=== PATIENT | male | born 1965 ===

== ENCOUNTER → 2021-04-27 15:09 | Outpatient (BNVA) | payer OTHER, SELFPAY | PROVIDERS: PCP Family Medicine; Visit Provider Internal Medicine | DX: J44.9 Chronic obstructive pulmonary disease, unspecified (principal); Z87.891 Personal history of nicotine dependence | CPT/HCPCS: 99212 ==

== ENCOUNTER → 2021-11-08 14:57 | Outpatient (BNVA) | payer OTHER, SELFPAY | PROVIDERS: PCP Family Medicine; Visit Provider Internal Medicine | DX: J44.9 Chronic obstructive pulmonary disease, unspecified (principal); Z87.891 Personal history of nicotine dependence | CPT/HCPCS: 99212 ==

== ENCOUNTER 2021-12-02 12:35 | Emergency (ER) | payer OTHER, SELFPAY ==
[2021-12-02 13:21] VITALS: BP 160/92; PULSE 85; RESP 17; TEMP 37.4; O2SAT 99; BMI 21.6
--- NOTE | 2021-12-02 17:28 | ED.WOUNDLAC ---
HPI - Wound/Laceration General Chief Complaint: Wound/Laceration Stated Complaint: infected thumbnail Time Seen by Provider: 12/02/21 16:11 Source: patient Mode of arrival: ambulatory History of Present Illness HPI narrative: 56-year-old male with past medical history of COPD presenting to the ED complaining of swollen, painful, erythematous right thumb x a few days. Admits poked area with something metal and then toothpick with pus drainage expressed. Denies fever, chills, injury Onset (ago): day(s) Related Data Home Medications Medication Instructions Recorded Confirmed levothyroxine 150 mcg tablet 150 mcg PO DAILY 04/27/21 lisinopril 10 mg tablet 10 mg PO DAILY 04/27/21 Previous Rx's Medication Instructions Recorded albuterol sulfate 90 mcg/actuation 2 puff INHALATION Q4-6H PRN 30 04/13/21 aerosol inhaler (ProAir HFA) Days #8.5 g fluticasone 500 mcg-salmeterol 50 1 inh INHALATION BID #60 ea 04/19/21 mcg/dose blistr powdr for inhalation (Advair Diskus) budesonide-formoterol HFA 160 2 puff INHALATION BID 30 Days 04/27/21 mcg-4.5 mcg/actuation aerosol #10.2 g inhaler (Symbicort) fluticasone propionate 230 2 puff INHALATION BID 30 Days #12 g 11/08/21 mcg-salmeterol 21 mcg/actuation HFA inhaler (Advair HFA) cephalexin 500 mg capsule 500 mg PO QID 7 Days #28 cap 12/02/21 doxycycline hyclate 100 mg tablet 100 mg PO BID 7 Days #14 tab 12/02/21 Allergies Allergy/AdvReac Type Severity Reaction Status Date / Time No Known Allergies Allergy Unverified 11/08/21 15:24 Review of Systems Review of Systems: Constitutional: No Fever, No Chills ENT/Mouth: No Ear Pain, No Nasal Congestion, No sore throat, No Swallowing Difficulty Cardiovascular: No Chest Pain, No SOB Respiratory: No Cough, No Sputum Gastrointestinal: No Nausea, No Vomiting, No Abdominal pain Genitourinary:, No Dysuria, No Urinary Frequency, No Hematuria,No Flank Pain Musculoskeletal: + joint pain, No Myalgias, + Joint Swelling Skin: No Skin Lesions, No rash Neuro: No Weakness, No Numbness, No Paresthesias Yes all other systems are reviewed and are negative [facility] Past Medical History Attestation statement: The following information was validated with the patient. Medical History COPD (chronic obstructive pulmonary disease) Ex-smoker Social History Social History Patient Tobacco Use Status: Former Tobacco user Tobacco use type: Cigarette Years Smoked: 40 years Advance Directives: No Advance Directives Information Provided: No Physical Exam Vital Signs: Vital Signs: Last Vital Signs Temp 99.4 F 12/02/21 13:21 Pulse 85 12/02/21 13:21 Resp 17 12/02/21 13:21 BP 160/92 H 12/02/21 13:21 Pulse Ox 99 12/02/21 13:21 BMI result Body Mass Index 21.6 Const: General: cooperative, healthy appearing, no acute distress, well developed, alert and awake Orientation/consciousness: patient oriented x3 Limitations: no limitations HENMT: Head: Yes normal to inspection and Yes atraumatic Ears: hearing grossly normal bilaterally General nose exam: Normal external nose present Face and sinus: Yes normal facial exam Eyes: General: appearance normal, both eyes and all related structures EOM: EOMs intact bilaterally Neck: Neck: Yes normal visual inspection and Yes no meningeal signs Resp: Effort & Inspection: normal respiratory effort and no respiratory distress Cardio: Rate: regular rate Peripheral pulses: radial pulses present Skin: Rashes: no rashes Neuro: General: patient oriented x3, tone normal and no meningeal signs Gait exam (Neuro): Normal gait present Extrem: Other: +felon to right thumb with fluctuance to pulp. + mild erythema to the matrix. diffuse ttp. FROM intact. NV intact Right upper extremity: normal capillary refill Course Course Course Narrative: I&D performed with Dr. Gutierrez at bedside > minimal amount of pus expressed. C/w cellulitis. Had lengthy discussion with patient about 0 care at home and close follow-up needed. He verbalized understanding and feels safe for discharge home at this time MDM - Wound/Laceration MDM Narrative Medical decision making narrative: 56-year-old male with past medical history of COPD presenting to the ED complaining of swollen, painful, erythematous right thumb x a few days. On exam vital signs stable, NAD/well-appearing, physical exam as above concerning for valentín with abscess vs cellulitis. Case discussed with Dr. Gutierrez who also evaluated patient Plan: I&D Differential Diagnosis Differential diagnosis: Likely abscess Medical Records Attestation: I reviewed the patient's medical records. Lab Data Attestation: I reviewed the patient's lab results. Procedures Abscess I/D Site: hand Side (if applicable): right Local Anesthetic: lidocaine 1% (digital block) Amount of anesthesia used (mL): 5 Technique: incised with blade Discharge Plan Discharge Clinical Impression: Felon of finger of right hand Patient Disposition: Home, Self-Care Instructions: Cellulitis (DC) Additional Instructions: You have an infection of your finger pad, it was open today with minimal drainage, you need to practice warm soaks at home to help dry out the infection a couple times a day Doxycycline and Keflex are antibiotics please take as prescribed. Perform daily wound checks. You need to follow-up with a hand specialist Please return for re-evaluation/wound check in 2-3 days If area begins to look more infected, more swollen, red, there was pus drainage or you have fever/red streaking up her finger return to the ED immediately Prescriptions: New cephalexin 500 mg capsule 500 mg PO QID 7 Days Qty: 28 0RF doxycycline hyclate 100 mg tablet 100 mg PO BID 7 Days Qty: 14 0RF No Action albuterol sulfate [ProAir HFA] 90 mcg/actuation HFA aerosol inhaler 2 puff inhalation Q4-6H PRN (Reason: shortness of breath or wheezing) 30 Days Qty: 8.5 3RF fluticasone propion-salmeterol [Advair Diskus] 500-50 mcg/dose blister with device 1 inh inhalation BID Qty: 60 3RF levothyroxine 150 mcg tablet 150 mcg PO DAILY 0RF lisinopril 10 mg tablet 10 mg PO DAILY 0RF budesonide-formoterol [Symbicort] 160-4.5 mcg/actuation HFA aerosol inhaler 2 puff inhalation BID 30 Days Qty: 10.2 5RF Advair HFA 230-21 mcg/actuation HFA aerosol inhaler 2 puff inhalation BID 30 Days Qty: 12 3RF Rx Instructions: administer with spacer Referrals: Mara Crum PA [Emergency Midlevel Provider] - 2 days (return to ED in 2 days for re-evaluation ) Liane Jordan MD [Physician] - 2 days Interventions: ED Discharge Assessment Last Done: 12/02/21 18:22
== END 2021-12-02 18:23 | disposition home or self-care (01) ==
PROVIDERS: Emergency Provider Emergency Medicine Emergency Medical Services; PCP Family Medicine
DX: L03.011 Cellulitis of right finger (principal); M79.644 Pain in right finger(s)
CPT/HCPCS: 26010; 99283; 99284

== ENCOUNTER 2021-12-08 11:35 | Outpatient (REF) | payer OTHER, SELFPAY ==
--- NOTE | ~2021-12-08 | XR_ITS ---
EXAMINATION: XR HAND, RIGHT CLINICAL INFORMATION: Pain in right hand. COMPARISON: Right hand 11/18/2017. TECHNIQUE: PA, lateral, and oblique views of the right hand. FINDINGS: There is a new lytic lesion along the phalangeal tuft of 1st digit with mild soft tissue swelling suspicious for an aggressive intraosseous lesion. There is moderate soft tissue swelling. Rest of the distal phalanx, PIP joint and the right hand is unremarkable. XR/XR hand RT min 3V IMPRESSION: 7 mm aggressive lytic lesion distal phalangeal tuft right hand 1st digit. Recommend MRI with and without contrast.
== END 2021-12-08 11:36 | disposition home or self-care (01) ==
LOC: HO.HOSX 11:35
PROVIDERS: Visit Provider Physician Assistant
DX: L03.011 Cellulitis of right finger (principal); M86.9 Osteomyelitis, unspecified
CPT/HCPCS: 73130; 99202

== ENCOUNTER 2021-12-11 07:50 | Day surgery (SDC) | payer OTHER, SELFPAY ==
--- NOTE | 2021-12-08 12:18 | HO.ANESPROP2 ---
Documented by User: Octavia Ramey NP 12/08/21 12:19 HPI - Anesthesia Eval Consult details Narrative: 56yo M for Right I&D thumb,poss amp PMFSH Active Problems Active Problems: All Active Problems (Updated 12/03/21 @ 00:02 by Ruy Aly) Ex-smoker (Acute) COPD (chronic obstructive pulmonary disease) (Acute) Past Medical History Medical History COPD (chronic obstructive pulmonary disease) Ex-smoker Social History Social History (Updated 12/08/21 @ 11:38 by JAIRO Broussard) Patient Tobacco Use Status: Former Tobacco user Tobacco use type: Cigarette Years Smoked: 40 years Current occupational status: disabled 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 Allergies Allergy/AdvReac Type Severity Reaction Status Date / Time No Known Allergies Allergy Verified 12/11/21 07:59 Home Medications Medication Instructions Recorded Confirmed Last Taken Type levothyroxine 150 mcg tablet 150 mcg PO DAILY 04/27/21 12/11/21 07:00 History lisinopril 10 mg tablet 10 mg PO DAILY 04/27/21 Unknown History Exam Exam Date and Time: December 08, 20211217 Assessment and Plan Assessment Anesthesia Assessment: Chart Reviewed Documented by User: Cortez Groves MD 12/11/21 16:52 [facility] Past Medical History Medical History COPD (chronic obstructive pulmonary disease) Ex-smoker Family History Family history of problems with anesthesia: No Surgical History History of Problems with Anesthesia: No Social History Social History (Updated 12/08/21 @ 11:38 by JAIRO Broussard) Patient Tobacco Use Status: Former Tobacco user Tobacco use type: Cigarette Years Smoked: 40 years Current occupational status: disabled 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 Allergies Allergy/AdvReac Type Severity Reaction Status Date / Time No Known Allergies Allergy Verified 12/11/21 07:59 Home Medications Medication Instructions Recorded Confirmed Last Taken Type levothyroxine 150 mcg tablet 150 mcg PO DAILY 04/27/21 12/11/21 07:00 History lisinopril 10 mg tablet 10 mg PO DAILY 04/27/21 Unknown History Exam Airway Mallampati Class: II TM Dist: >3cm Neck ROM: Full Loose/Missing/Broken Teeth: Yes (Poor dentation ) Heart: rrr Lungs: bl breath sounds Assessment and Plan Assessment Anesthesia Assessment: Anesthesia Plan Discussed Final Anesthetic Review Family History of Problems with Anesthesia: No History of Problems with Anesthesia: No NPO: Yes ASA Class: II Final Preanesthetic Review: No Changes in Pt Med Stat, Meds/Allgs Chart Reviewed, Consent Obtained/Reviewed and Anes Risks/Benef Reviewed Patient Risk: Intermediate Procedure Risk: Intermediate Anesthetic Plan Anesthetic Plan: GA Disposition: Standard PACU
[2021-12-11] VITALS (8 sets, daily range): BP systolic 117–160; BP diastolic 75–99; PULSE 71–79; RESP 16; TEMP 36.1–37.2; O2SAT 97–100; BMI 21.7
--- NOTE | ~2021-12-11 | FL_ITS ---
EXAMINATION: XR FLUOROSCOPY WITH IMAGES CLINICAL INFORMATION: COMPARISON: Aggressive lesion distal phalanx 1st digit. TECHNIQUE: Fluoroscopy performed by Dr. Liane Jordan Fluoroscopy time: 6.77). DAP: 2644 mGycm2 Images: 3 FINDINGS: There is incision and drainage or biopsy gun of the expansile lytic lesion along the distal phalanx 1st digit. FL/FL guidance in OR IMPRESSION: of the distal phalanx 1st digit.
[2021-12-11] MEDS: Lactated Ringers 1,000 ML 100 ML IVCONT (09:01)
--- NOTE | 2021-12-11 09:42 | MHC.SHP ---
Pre-Procedural Eval Section A Date of Service: 12/11/21 The patient is an INPATIENT: No Changes since office visit: No Cold of Flu in the past 2 weeks, No New Medical Problems, No Changes in Medication and No Patient answered all questions The History & Physical has been completed within 30 days and I have reviewed it.: Yes Section B Chief Complaint: Osteomyelitis of right thumb distal phalanx Allergies: Allergies Allergy/AdvReac Type Severity Reaction Status Date / Time No Known Allergies Allergy Verified 12/11/21 07:59 Plan I have reviewed the history and physical and performed a pertinent physical examination on my patient. No changes have occurred unless specified.
--- NOTE | 2021-12-11 09:43 | W.PM.OPN ---
Operative Note Operative Note Date of Service: 12/11/21 Narrative: Operative Note Narrative: Preop diagnosis: right thumb distal phalanx osteomyelitis Postop diagnosis: Same Procedure: right thumb and distal phalanx I&D Surgeon: Liane Jordan MD Anesthesia: General Findings: a small amount of serosanguineous drainage. No gross purulence. The bone in the area of the defect in the distal phalanx was not particularly soft. Implants: none Tourniquet time: Fifteen minutes EBL: 5.0 ml Specimen: right thumb wound and bone specimen sent for cultures Drains: None Complications: None Disposition: Brought to the recovery room in stable condition Plan: [ ] Follow-up in 3-4 days for wound check, and to check cultures Anticipate close follow-up. Infectious disease referral made. assure patient taking antibiotics, and adequate appointment made with Infectious Disease, as this patient will likely need 6 weeks of antibiotics. Indications: The patient is a [age] year old man with right thumb distal phalanx osteomyelitis and an approximately 3 month history of a chronic infection. . The risks and benefits of operative treatment, including but not limited to risk of damage to blood vessels, nerves, tendons, infection, recurrence, persistent pain or numbness, incomplete resolution of preoperative symptoms, or need for further surgery were discussed with the patient and they wished to proceed with surgery. Procedure: Once consent was obtained patient was brought back to the operating suite and placed in the operating table in a supine position. . Perioperative antibiotics Were held until cultures were taken,and anesthesia was administered by the anesthesia team. A tourniquet was applied to the proximal aspect of the right upper extremity and the limb was prepped and draped in a standard surgical fashion. The limb was elevated exsanguinated with Esmarch bandage from the wrist proximally and the tourniquet inflated to 250 mm of mercury for a total tourniquet time of 15 minutes. A digital block Of the right thumb was performed using some 0.5% plain Marcaine. I made a 1.5 cm incision along the radial border of the right thumb distal phalanx in line with the healing ED incision site. Tenotomy scissors were used to dissect down to volar soft tissues at the distal phalanx level. A small amount of serosanguineous drainage was appreciated but no gross purulence. I then made a 1 cm transverse incision at the tip of the distal phalanx, where the patient had been draining this infection on his own over the last 2-3 months. Tenotomy scissors were then used to dissect down to the volar soft tissues and the volar aspect of the distal phalanx. Again there was only a small amount of serosanguineous drainage and no gross purulence. I placed a small curette into the bony defect at the volar tip of the distal phalanx. This was confirmed on orthogonal fluoroscopic images. Cultures were taken both of the soft tissues in the volar aspect of the thumb, and also from the bone of the distal phalanx in the area of the defect. Of note, the bone in this area was not particularly soft. At this point the tourniquet was deflated and hemostasis obtained with a brief period of local pressure. The bone and the wounds were copiously irrigated with normal saline. The skin edges were loosely reapproximated with 5-0 nylon suture. a sterile dressing was applied. 3 g of IV Unasyn were given after cultures were taken. The patient appears to have tolerated the procedure well and with no complications. All digits were well vascularized conclusion of the case.
[2021-12-11] MEDS: Ampicillin Sodium/Sulbactam Na 3 GM in 0.9 % Sodium Chloride 100 ML IV (10:55)
== END 2021-12-11 12:45 | disposition home or self-care (01) ==
PROVIDERS: PCP Family Medicine; Visit Provider Orthopaedic Surgery
PROC: (CPT 10061; principal; 2021-12-11 09:10)
DX: M86.141 Other acute osteomyelitis, right hand (principal); L03.011 Cellulitis of right finger; B96.89 Other specified bacterial agents as the cause of diseases classified elsewhere; J44.9 Chronic obstructive pulmonary disease, unspecified; Z87.891 Personal history of nicotine dependence; M86.641 Other chronic osteomyelitis, right hand
CPT/HCPCS: 10061; 87071; 87077; 87205; J0295; J1100; J2250; J2405; J3010

== ENCOUNTER → 2021-12-15 11:21 | Outpatient (BNVA) | payer OTHER, SELFPAY | PROVIDERS: Visit Provider Physician Assistant | DX: M86.9 Osteomyelitis, unspecified (principal) | CPT/HCPCS: 99212 ==

== ENCOUNTER → 2021-12-26 12:31 | Outpatient (BNVA) | payer OTHER, SELFPAY | PROVIDERS: PCP Family Medicine; Visit Provider Orthopaedic Surgery | DX: Z47.89 Encounter for other orthopedic aftercare (principal); S60.351A Superficial foreign body of right thumb, initial encounter | CPT/HCPCS: 99212 ==

== ENCOUNTER 2021-12-28 05:58 | Day surgery (SDC) | payer OTHER, SELFPAY ==
--- NOTE | 2021-12-27 10:44 | P.CONAN_ITS ---
Documented by User: Octavia Ramey NP 12/27/21 10:45 HPI - Anesthesia Eval Consult details Narrative: 56yo M for Right I&D thumb, removal of nail plate and foreign body s/p R thumb I&D 11/2021 with [facility] 4 PMFSH Active Problems Active Problems: All Active Problems (Updated 12/26/21 @ 13:49 by Liane Jordan MD) Foreign body of right thumb (Acute) Osteomyelitis of finger of right hand (Acute) Osteomyelitis (Acute) Ex-smoker (Acute) COPD (chronic obstructive pulmonary disease) (Acute) Past Medical History Medical History (Updated 12/27/21 @ 11:53 by Fouzia Bañuelos RN) COPD (chronic obstructive pulmonary disease) Ex-smoker HTN (hypertension) Hypothyroid Family History Family history of problems with anesthesia: No Surgical History History of Problems with Anesthesia: No Social History Social History Patient Tobacco Use Status: Former Tobacco user Tobacco use type: Cigarette Years Smoked: 40 years Current occupational status: disabled 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 Allergies Allergy/AdvReac Type Severity Reaction Status Date / Time No Known Allergies Allergy Verified 12/26/21 12:44 Home Medications Medication Instructions Recorded Confirmed Last Taken Type levothyroxine 150 mcg tablet 150 mcg PO DAILY 04/27/21 12/28/21 05:45 History lisinopril 10 mg tablet 10 mg PO DAILY 04/27/21 Unknown History Exam Exam Date and Time: December 27, 2021 1044 Assessment and Plan Assessment Anesthesia Assessment: Chart Reviewed Final Anesthetic Review Family History of Problems with Anesthesia: No History of Problems with Anesthesia: No Documented by User: Cortez Groves MD 12/28/21 16:31 HPI - Anesthesia Eval Consult details Narrative: 56yo M for Right I&D thumb, removal of nail plate and foreign body HTN , COPD symptoms waxes and wanes , Hypothroid s/p R thumb I&D 11/2021 with [facility]-LMA 4 [facility] Past Medical History Medical History (Updated 12/27/21 @ 11:53 by Fouzia Bañuelos RN) COPD (chronic obstructive pulmonary disease) Ex-smoker HTN (hypertension) Hypothyroid Social History Social History Patient Tobacco Use Status: Former Tobacco user Tobacco use type: Cigarette Years Smoked: 40 years Current occupational status: disabled 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 Allergies Allergy/AdvReac Type Severity Reaction Status Date / Time No Known Allergies Allergy Verified 12/26/21 12:44 Home Medications Medication Instructions Recorded Confirmed Last Taken Type levothyroxine 150 mcg tablet 150 mcg PO DAILY 04/27/21 12/28/21 05:45 History lisinopril 10 mg tablet 10 mg PO DAILY 04/27/21 Unknown History Exam Airway Mallampati Class: II TM Dist: >3cm Neck ROM: Full Loose/Missing/Broken Teeth: Yes Heart: rrr Lungs: bl breath sounds Assessment and Plan Assessment Anesthesia Assessment: Anesthesia Plan Discussed Final Anesthetic Review NPO: Yes ASA Class: II Patient Risk: Intermediate Procedure Risk: Intermediate Anesthetic Plan Anesthetic Plan: GA Disposition: Standard PACU
[2021-12-28] VITALS (8 sets, daily range): BP systolic 113–144; BP diastolic 67–101; PULSE 72–89; RESP 16–18; TEMP 36.3–36.6; O2SAT 97–100; BMI 20.9
[2021-12-28] MEDS: Lactated Ringers 1,000 ML 100 ML IVCONT (06:45)
--- NOTE | 2021-12-28 07:40 | P.OP_ITS ---
Operative Note Operative Note Date of Service: 12/28/21 Narrative: Operative Note Narrative: Preop diagnosis: 1. Right thumb foreign body 2. Right thumb distal phalanx osteomyelitis Postop diagnosis: Same Procedure: 1. Right thumb distal phalanx I&D 2. Right thumb removal of nail plate 3. Right thumb removal of foreign body Surgeon: Liane Jordan MD Anesthesia: General [plus regional block] Findings: A defect in the distal aspect of the right thumb nail sterile matrix extending down into an area of bone loss secondary to osteomyelitis. Some debris and a small sac was removed from this area. Cultures were taken, and the small sac and some of the debris sent for pathology. Implants: none Tourniquet time: Twenty-five minutes EBL: 5.0 ml Specimen: cultures from the right thumb distal phalanx, as well as soft tissue including a sac like tissue and some debris which may include a foreign body or sent to pathology Drains: None Complications: None Disposition: Brought to the recovery room in stable condition Plan: [ ] Follow-up in 4-5 days for wound check, and to check pathology and cultures anticipate suture removal in 2 weeks. Indications: The patient is a 48 year old man with right thumb distal phalanx osteomyelitis, who feels the presence of a splinter in the distal aspect of the nail bed. . The risks and benefits of operative treatment, including but not limited to risk of damage to blood vessels, nerves, tendons, infection, recurrence, persistent pain or numbness, incomplete resolution of preoperative symptoms, or need for further surgery were discussed with the patient and they wished to proceed with surgery. Procedure: Once consent was obtained patient was brought back to the operating suite and placed in the operating table in a supine position. . Perioperative antibiotics and anesthesia was administered by the anesthesia team. A tourniquet was applied to the proximal aspect of the Right upper extremity and the limb was prepped and draped in a standard surgical fashion. The limb was elevated exsanguinated with Esmarch bandage and the tourniquet inflated to 250 mm of mercury for a total tourniquet time of Twenty-five minutes. I removed a layer of old dry skin from the distal aspect of the right thumb. It showed the 2 incisions from his I&D to be well healed. The nail plate was removed using a [place] elevator. the nail plate was noted to be significantly thickened. There was essentially a hole through the distal central aspect of the sterile matrix where the patient thought that there might be a splinter. Some of this tissue was adherent to the underside of the nail in this area. some debris that may have been foreign body or splinter was removed and placed in the culture tube. A rongeur was used to remove a small sac like tissue and some remaining debris from the wound and distal phalanx and this was sent for pathology. There is a fairly significant cavernous defect in the dorsal aspect of the distal phalanx. The defect in sterile matrix extended into this bony cavern. A small curette and a rongeur was used to remove material from the distal phalanx defect. This point the wound was copiously irrigated with normal saline. A single 5 0 Prolene suture was used to reapproximate the edges of the sterile matrix defect. At this point the tourniquet was deflated and hemostasis obtained with a brief period of local pressure . A digital block was performed using some 0.5% plain Marcaine for postop pain control and a sterile dressing was applied. The patient appears to have tolerated the procedure well and with no complications. All digits were well vascularized conclusion of the case.
--- NOTE | 2021-12-28 07:40 | MHC.SHP ---
Pre-Procedural Eval Section A Date of Service: 12/28/21 The patient is an INPATIENT: No Changes since office visit: No Cold of Flu in the past 2 weeks, No New Medical Problems, No Changes in Medication and No Patient answered all questions The History & Physical has been completed within 30 days and I have reviewed it.: Yes Section B Chief Complaint: osteomyelitis Allergies: Allergies Allergy/AdvReac Type Severity Reaction Status Date / Time No Known Allergies Allergy Verified 12/26/21 12:44 Plan I have reviewed the history and physical and performed a pertinent physical examination on my patient. No changes have occurred unless specified.
== END 2021-12-28 10:53 | disposition home or self-care (01) ==
PROVIDERS: PCP Family Medicine; Visit Provider Orthopaedic Surgery
PROC: (CPT 10121; principal; 2021-12-28 07:30)
DX: M86.9 Osteomyelitis, unspecified (principal); S60.351A Superficial foreign body of right thumb, initial encounter; M79.5 Residual foreign body in soft tissue; W45.8XXA Other foreign body or object entering through skin, initial encounter; Y93.9 Activity, unspecified; Y92.9 Unspecified place or not applicable; Y99.8 Other external cause status; R20.0 Anesthesia of skin; M25.641 Stiffness of right hand, not elsewhere classified; J44.9 Chronic obstructive pulmonary disease, unspecified; Z87.891 Personal history of nicotine dependence; I10 Essential (primary) hypertension; Z79.51 Long term (current) use of inhaled steroids; Z79.899 Other long term (current) drug therapy
CPT/HCPCS: 10121; 87071; 87205; 88304; 88305; 88311; J0171; J1100; J2250; J2370; J2405; J3010

== ENCOUNTER → 2022-01-02 12:20 | Outpatient (BNVA) | payer OTHER, SELFPAY | PROVIDERS: PCP Family Medicine; Visit Provider Physician Assistant | DX: M86.9 Osteomyelitis, unspecified (principal); S60.351D Superficial foreign body of right thumb, subsequent encounter; Z98.890 Other specified postprocedural states | CPT/HCPCS: 99212 ==

== ENCOUNTER → 2022-01-09 15:01 | Outpatient (BNVA) | payer OTHER, SELFPAY | PROVIDERS: PCP Family Medicine; Visit Provider Orthopaedic Surgery | DX: S60.351D Superficial foreign body of right thumb, subsequent encounter (principal); M86.9 Osteomyelitis, unspecified | CPT/HCPCS: 99212 ==

== ENCOUNTER → 2022-01-12 11:02 | Outpatient (BNVA) | payer OTHER, SELFPAY | PROVIDERS: PCP Family Medicine; Visit Provider Internal Medicine | DX: M86.9 Osteomyelitis, unspecified (principal) | CPT/HCPCS: 99212 ==

== ENCOUNTER → 2022-01-16 10:17 | Outpatient (BNVA) | payer OTHER, SELFPAY | PROVIDERS: PCP Family Medicine; Visit Provider Orthopaedic Surgery | DX: S60.351D Superficial foreign body of right thumb, subsequent encounter (principal); M86.9 Osteomyelitis, unspecified | CPT/HCPCS: 99212 ==

== ENCOUNTER 2022-02-20 11:08 | Outpatient (REF) | payer OTHER, SELFPAY ==
--- NOTE | ~2022-02-20 | XR_ITS ---
EXAMINATION: XR HAND, RIGHT CLINICAL INFORMATION: Pain. COMPARISON: Radiograph of the right hand dated from 12/08/2021. TECHNIQUE: PA, lateral, and oblique views of the right hand. FINDINGS: Redemonstration of a lytic lesion in the distal phalangeal tuft of the first digit. No other discrete bone lesions. No acute fractures or malalignment. 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 XR/XR hand RT min 3V IMPRESSION: Again noted nonspecific lytic lesion in the distal phalanx of the first digit for which further characterization with a targeted MR with and without intravenous contrast is recommended.
== END 2022-02-20 11:09 | disposition home or self-care (01) ==
LOC: HO.HOSX 11:08
PROVIDERS: Visit Provider Orthopaedic Surgery
DX: M86.9 Osteomyelitis, unspecified (principal)
CPT/HCPCS: 73130; 99212

== ENCOUNTER → 2022-03-07 14:28 | Outpatient (BNVA) | payer OTHER, SELFPAY | PROVIDERS: PCP Family Medicine; Visit Provider Internal Medicine | DX: J44.9 Chronic obstructive pulmonary disease, unspecified (principal); F12.90 Cannabis use, unspecified, uncomplicated; Z87.891 Personal history of nicotine dependence | CPT/HCPCS: 99212 ==

== ENCOUNTER → 2022-03-09 12:59 | Outpatient (BNVA) | payer OTHER, SELFPAY | PROVIDERS: PCP Family Medicine; Visit Provider Internal Medicine | DX: M86.9 Osteomyelitis, unspecified (principal) | CPT/HCPCS: 99212 ==

== ENCOUNTER 2022-04-03 10:48 | Outpatient (REF) | payer OTHER, SELFPAY | END 2022-04-03 10:49 | disposition home or self-care (01) | LOC: HO.HOSX 10:48 | PROVIDERS: Visit Provider Orthopaedic Surgery | DX: Z13.89 Encounter for screening for other disorder (principal) ==

== ENCOUNTER → 2022-08-21 14:39 | Outpatient (BNVA) | payer OTHER, SELFPAY | PROVIDERS: PCP Family Medicine; Visit Provider Internal Medicine | DX: J44.9 Chronic obstructive pulmonary disease, unspecified (principal); Z87.891 Personal history of nicotine dependence | CPT/HCPCS: 99212 ==

== ENCOUNTER → 2022-11-15 14:50 | Outpatient (BNVA) | payer OTHER, SELFPAY | PROVIDERS: PCP Family Medicine; Visit Provider Internal Medicine | DX: J44.9 Chronic obstructive pulmonary disease, unspecified (principal); I10 Essential (primary) hypertension; E03.9 Hypothyroidism, unspecified; Z87.891 Personal history of nicotine dependence | CPT/HCPCS: 99212 ==

== ENCOUNTER → 2023-03-12 14:43 | Outpatient (BNVA) | payer OTHER, SELFPAY | PROVIDERS: PCP Family Medicine; Visit Provider Internal Medicine | DX: J44.9 Chronic obstructive pulmonary disease, unspecified (principal); Z87.891 Personal history of nicotine dependence | CPT/HCPCS: 99212 ==

== ENCOUNTER → 2023-04-17 13:03 | Outpatient (BNVA) | payer OTHER, SELFPAY | PROVIDERS: PCP Family Medicine; Visit Provider Internal Medicine ==

== ENCOUNTER 2023-04-19 08:55 | Outpatient (REF) | payer OTHER, SELFPAY ==
[2023-04-19 11:23] LABS: MANUAL DIFF FLAG NO
[2023-04-19 11:34] LABS: Basophils Absolute Auto 0.1 X10*3/uL (0.0-0.2); Basophils Percent Auto 0.6 % (0-2); Eosinophils Absolute Auto 0.4 X10*3/uL (0.0-0.4); Eosinophils Percent Auto 3.4 % (0-4); Hematocrit 50.3 % (42.0-52.0); Hemoglobin 15.6 g/dl (14.0-18.0); Imm Gran Abs Auto 0.02 X10*3/uL (0.00-0.03); Imm Gran Pct Auto 0.2 % (0.0-0.4); Lymphocytes Absolute Auto 4.4 X10*3/uL (1.2-4.9); Lymphocytes Percent Auto 42.8 % (20-40); Mean Corpuscular Hemoglobin 26.8 pg (27.0-33.0); Mean Corpuscular Volume 86.3 fL (80.0-98.0); Mean Platelet Volume 10.6 fL (9.4-12.4); Monocytes Absolute Auto 0.6 X10*3/uL (0.1-1.2); Monocytes Percent Auto 6.1 % (2-11); Neutrophils Absolute Auto 4.8 x10*3/uL (2.0-8.3); Neutrophils Percent Auto 46.9 % (45-73); Platelet Count 275 X10*3/uL (160-400); Red Blood Count 5.83 X10*6/uL (4.60-5.80); Red Cell Distribution Width 13.8 % (11.0-16.0); White Blood Count 10.3 X10*3/uL (4.8-10.8)
[2023-04-19 12:00] LABS: Alanine Aminotransferase 10 U/L (0-40); Alkaline Phosphatase 74 U/L (39-117); Anion Gap 17 (12-20); Aspartate Amino Transferase 16 U/L (5-37); Bilirubin Direct 0.2 mg/dL (0.0-0.5); Bilirubin Total 0.5 mg/dL (0.0-1.0); Blood Urea Nitrogen 14 mg/dL (9-16); Calcium 9.1 mg/dL (8.4-10.2); Carbon Dioxide 22 mmol/L (22-29); Chloride 105 mmol/L (96-108); Cholesterol 193 mg/dL; Estimated Glomerular Filt Rate > 60; Glucose Random 100 mg/dL (60-115); HDL Cholesterol 48 mg/dL; LDL Cholesterol Calculated 118 mg/dl; Potassium 3.5 mmol/L (3.3-5.1); Sodium 140 mmol/L (135-145); Total Protein 6.7 g/dL (6.5-8.0); Triglycerides 136 mg/dL
[2023-04-19 12:19] LABS: TSH reflex Free T4 10.19 uIU/mL (0.32-4.0)
[2023-04-19 13:26] LABS: Free T4 (Free Thyroxine) 1.05 ng/dL (0.71-1.85)
[2023-04-22 04:06] LABS: ~HepC Num1 0.06 S/CO (0.00-0.79); ~Hepatitis C Antibody Nonreactive (Nonreactive)
[2023-04-22 04:07] LABS: HIV AB/AG Nonreactive (Nonreactive); HIV Num 1 0.05 S/CO (0.00-0.99)
== END 2023-04-19 08:56 | disposition home or self-care (01) ==
LOC: HO.HHCL 08:55
PROVIDERS: Visit Provider Family Medicine
DX: Z11.4 Encounter for screening for human immunodeficiency virus [HIV] (principal); Z11.3 Encounter for screening for infections with a predominantly sexual mode of transmission; I10 Essential (primary) hypertension; E03.9 Hypothyroidism, unspecified
CPT/HCPCS: 36415; 80048; 80061; 80076; 84439; 84443; 85025; 86803; 87389

== ENCOUNTER 2023-06-12 14:47 | Outpatient (AMB) | payer OTHER, SELFPAY ==
[2023-06-12 15:01] VITALS: BP 132/78; PULSE 75; O2SAT 97; BMI 22.6
--- NOTE | 2023-06-12 15:01 | A.OFFVIS_ITS ---
Intake Vital Signs 06/12/23 15:01 Height 5 ft 5 in Weight 136 lb BMI 22.6 BP 132/78 Blood Pressure Location Lt brachial Position Sitting Pulse 75 Pulse Source Pulse Oximeter Pulse Oximetry (%) 97 Oxygen Delivery Method Room Air Intake Visit Reasons: copd Intake Note: pt is here for follow up and states he did not like Incruse, he felt it was a little to tuff for him, he did not feel well on it. Advair HFA and ventolin, but he does state some little attacks have been occurring requiring albuterol. short of breath with exertion, carrying things. Activities Attendant Required: No Allergies No Known Allergies Allergy (Verified 06/12/23 15:12) Medication List - Last Reconciled 06/12/23 by Abbi Florian MD Advair HFA 230-21 mcg/actuation (fluticasone propion-salmeterol) 2 puffs PO BID NS levothyroxine 150 mcg PO DAILY lisinopril 10 mg PO DAILY peg 3350-electrolytes 236-22.74-6.74 -5.86 gram (Golytely) 240 mL PO Q10M Ventolin HFA 90 mcg/actuation (albuterol sulfate) 2 puffs PO Q4-6H PRN NS Do you need a note to return to daycare/school/sports/work: No HPI copd HPI Details THIS 57 YEARS OLD IS A VERY PLEASANT GENTLEMAN WHO IS HERE FOR FOLLOW- UP FOR HIS BRONCHIAL ASTHMA. HE IS DOING VERY WELL AT THIS TIME TO THE POINT THAT HE HAS CUT DOWN THE ADVAIR HFA 2 ONLY ONCE IN THE MORNING. HOWEVER HE STILL USES VENTOLIN ONCE OR TWICE A DAY. HE HAD BEEN PRESCRIBED INCRUSE BECAUSE OF HIS INCREASED RESPIRATORY SYMPTOMS. BUT HE DID NOT TOLERATED WELL. THINKS IS TOO STRONG FOR HIM. SO HE STOPPED USING IT. HE DOES NOT SMOKE CIGARETTES, BUT DOES SMOKE WEED ONCE IN A WHILE. 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 Review of Systems Const All systems reviewed & are unremarkable except as noted in HPI and below Eyes Reports no additional complaints ENT Reports nasal congestion (Mild off and) Card Denies chest pain, Denies irregular heart rhythm and Denies leg edema Resp Reports as per HPI GI Reports no additional complaints Reports no additional complaints Musc Reports no additional complaints Skin/Breast Reports system reviewed and no additional complaints, except as documented Neuro Reports no additional complaints Psych Reports no additional complaints Endo Reports other (Being treated for hypothyroidism) Aller/Immun Reports no additional complaints Physical Exam Vital Signs: Last Vital Signs Pulse 75 06/12/23 15:01 BP 132/78 06/12/23 15:01 Pulse Ox 97 06/12/23 15:01 Oxygen Delivery Method Room Air 06/12/23 15:01 BMI result Body Mass Index 22.6 Const General: healthy appearing, comfortable, no acute distress, alert and awake Orientation/consciousness: patient oriented x3 HEENT Head: Yes normal to inspection General nose exam: No nasal polyps present and No nasal discharge present Face and sinus: Yes sinuses nontender Mouth: oropharynx normal Throat: Yes posterior oropharynx normal Eyes General: appearance normal, both eyes and all related structures Neck Neck: Yes normal visual inspection, Yes no lymphadenopathy, Yes trachea midline and Yes no JVD Thyroid: Thyroid normal Chest Chest palpation & inspection: normal inspection of the chest, normal palpation of entire chest wall and no tenderness Resp Other: Percussion note is resonant, has good breath sounds on both sides, slightly prolonged expiratory phase. No wheezes or rhonchi are heard today. Cardio Palpation: normal PMI Rate: regular rate Rhythm: regular rhythm Heart sounds: no gallops and no murmurs Peripheral pulses: Peripheral pulses 2+ throughout GI Palpation (GI): Soft to palpation, nontender, No hepatosplenomegaly present and no masses Auscultation: normal bowel sounds Back/Spine/Pelvis Thoracic/Lumbar Spine: thoracic and lumbar spine normal to inspection Skin General skin exam: no rashes or lesions noted Neuro General: patient oriented x3 and no focal motor deficits Cranial nerves: Yes CN's II-XII intact bilaterally Extrem General: Yes normal to inspection, Yes no clubbing, cyanosis or edema and Yes no calf tenderness Psych Appearance: grossly normal and well kempt Speech and movement: Normal speech and movement present Assessment & Plan Assessment & Plan (1) Ex-smoker: Comment: HE IS COMMENDED FOR NOT SMOKING. COUNSELED THAT HE SHOULD NOT RESUME CIGARETTES ANY TIME. HE HAS ALSO CUT DOWN THE USE OF WEED, TO ONLY ABOUT ONCE A DAY AND EVERY DAY . Code(s): Z87.891 - Personal history of nicotine dependence (2) COPD (chronic obstructive pulmonary disease): Comment: HE DOES HAVE CHRONIC OBSTRUCTIVE PULMONARY DISEASE, MILD TO MODERATE, IT IS REMAINING WELL CONTROLLED AND STABLE. TX: OKAY TO DISCONTINUE INCRUSE ELLIPTA. ADVAIR HFA 230-21 2 PUFFS B.I.D. BUT IF SYMPTOMS ARE UNDER CONTROL THEN HE MIGHT CUT IT DOWN TO ONLY ONCE A DAY. VENTOLIN HFA 2 PUFFS Q 4-6 HOURS P.R.N.. Code(s): J44.9 - Chronic obstructive pulmonary disease, unspecified Coding Level of Care Code Est Pt Level 3 (20028) Diagnoses Ex-smoker Z87.891 COPD (chronic obstructive pulmonary disease) J44.9
== END 2023-06-12 15:18 | disposition home or self-care (01) ==
PROVIDERS: PCP Family Medicine; Visit Provider Internal Medicine
DX: Z87.891 Personal history of nicotine dependence (principal); J44.9 Chronic obstructive pulmonary disease, unspecified
CPT/HCPCS: 99213

== ENCOUNTER → 2023-06-12 14:47 | Outpatient (BNVA) | payer OTHER, SELFPAY | PROVIDERS: PCP Family Medicine; Visit Provider Internal Medicine | DX: J44.9 Chronic obstructive pulmonary disease, unspecified (principal); Z87.891 Personal history of nicotine dependence | CPT/HCPCS: 99212 ==

== ENCOUNTER 2023-10-10 15:23 | Outpatient (AMB) | payer OTHER, SELFPAY ==
[2023-10-10 15:27] VITALS: BP 140/88; PULSE 73; O2SAT 98; BMI 23.6
--- NOTE | 2023-10-10 15:27 | A.OFFVIS_ITS ---
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 Required: No Allergies No Known Allergies Allergy (Verified 10/10/23 15:31) Medication List - Last Reconciled 10/10/23 by Abbi Florian MD Advair HFA 230-21 mcg/actuation (fluticasone propion-salmeterol) 2 puffs PO BID NS levothyroxine 150 mcg PO DAILY lisinopril 10 mg PO DAILY peg 3350-electrolytes 236-22.74-6.74 -5.86 gram (Golytely) 240 mL PO Q10M Ventolin HFA 90 mcg/actuation (albuterol sulfate) 2 puffs PO Q4-6H PRN NS Do you need a note to return to daycare/school/sports/work: No HPI copd HPI Details FORREST is 57 years old very pleasant gentleman, nonsmoker, being followed for bronchial asthma. It has stayed very stable but since last week he has had symptoms of cold and now continues to have frequent cough with increased shortness of breath. He has no fever or chills. He is using Advair HFA 230-212 puffs b.i.d., and albuterol inhaler only p.r.n.. Now since last week he needs to use the albuterol at least 2 to 3 times a day. 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 Review of Systems Const All systems reviewed & are unremarkable except as noted in HPI and below Eyes Reports no additional complaints ENT Reports nasal congestion (Mild off and) Card Denies chest pain, Denies irregular heart rhythm and Denies leg edema Resp Reports as per HPI GI Reports no additional complaints Reports no additional complaints Musc Reports no additional complaints Skin/Breast Reports system reviewed and no additional complaints, except as documented Neuro Reports no additional complaints Psych Reports no additional complaints Endo Reports other (Being treated for hypothyroidism) Aller/Immun Reports no additional complaints Physical Exam Vital Signs: Last Vital Signs Pulse 73 10/10/23 15:27 BP 140/88 H 10/10/23 15:27 Pulse Ox 98 10/10/23 15:27 Oxygen Delivery Method Room Air 10/10/23 15:27 BMI result Body Mass Index 23.6 Const General: healthy appearing, comfortable, no acute distress, alert and awake Orientation/consciousness: patient oriented x3 HEENT Head: Yes normal to inspection General nose exam: No nasal polyps present and No nasal discharge present Face and sinus: Yes sinuses nontender Mouth: oropharynx normal Throat: Yes posterior oropharynx normal Eyes General: appearance normal, both eyes and all related structures Neck Neck: Yes normal visual inspection, Yes no lymphadenopathy, Yes trachea midline and Yes no JVD Thyroid: Thyroid normal Chest Chest palpation & inspection: normal inspection of the chest, normal palpation of entire chest wall and no tenderness Resp Other: Percussion note is resonant, has good breath sounds on both sides, slightly prolonged expiratory phase. His breath sounds are somewhat harsh with a few expiratory wheezes especially over the lower lobes. Cardio Palpation: normal PMI Rate: regular rate Rhythm: regular rhythm Heart sounds: no gallops and no murmurs Peripheral pulses: Peripheral pulses 2+ throughout GI Palpation (GI): Soft to palpation, nontender, No hepatosplenomegaly present and no masses Auscultation: normal bowel sounds Back/Spine/Pelvis Thoracic/Lumbar Spine: thoracic and lumbar spine normal to inspection Skin General skin exam: no rashes or lesions noted Neuro General: patient oriented x3 and no focal motor deficits Cranial nerves: Yes CN's II-XII intact bilaterally Extrem General: Yes normal to inspection, Yes no clubbing, cyanosis or edema and Yes no calf tenderness Psych Appearance: grossly normal and well kempt Speech and movement: Normal speech and movement present Assessment & Plan Assessment & Plan (1) COPD exacerbation: Comment: Normally he has chronic obstructive pulmonary disease which has remained very stable. Now since last week due to upper respiratory infection he has mild to moderate degree of exacerbation of COPD. Code(s): J44.1 - Chronic obstructive pulmonary disease with (acute) exacerbation Plan: Continue Advair HFA 230-212 puffs b.i.d.. Use the albuterol HFA 2 puffs Q 4-6 hours p.r.n. but avoid any excessive usage. FOR ACUTE EXACERBATION : PREDNISONE 20 MG B.I.D. FOR 5 DAYS. Radha-EVONNE # 1 PK. (2) Ex-smoker: Comment: HE IS COMMENDED FOR NOT SMOKING. COUNSELED THAT HE SHOULD NOT RESUME CIGARETTES ANY TIME. HE HAS ALSO CUT DOWN THE USE OF WEED, TO ONLY ABOUT ONCE A DAY AND EVERY DAY . Code(s): Z87.891 - Personal history of nicotine dependence Plan: ABOVE Medications: New prednisone 20 mg PO BID 10 tabs 0RF COPD EXCERBATION 5 days azithromycin For 250 mg dose pack: take 500 mg today (day 1), then 250 mg for 4 days (days 2-5) PO 6 tabs 0RF COPD EXCERBATION Coding Level of Care Code Est Pt Level 3 (92285) Diagnoses COPD exacerbation J44.1 Ex-smoker Z87.891
== END 2023-10-10 15:44 | disposition home or self-care (01) ==
PROVIDERS: PCP Family Medicine; Visit Provider Internal Medicine
DX: J44.1 Chronic obstructive pulmonary disease with (acute) exacerbation (principal); Z87.891 Personal history of nicotine dependence
CPT/HCPCS: 99213

== ENCOUNTER → 2023-10-10 15:23 | Outpatient (BNVA) | payer OTHER, SELFPAY | PROVIDERS: PCP Family Medicine; Visit Provider Internal Medicine | DX: J44.1 Chronic obstructive pulmonary disease with (acute) exacerbation (principal); Z87.891 Personal history of nicotine dependence | CPT/HCPCS: 99212 ==

== ENCOUNTER 2024-01-14 11:07 | Day surgery (SDC) | payer OTHER, SELFPAY ==
--- NOTE | 2023-11-04 10:33 | HO.ANESPROP2 ---
HPI - Anesthesia Eval Consult details Narrative: 58yo M for Colonoscopy PMFSH Active Problems Active Problems: All Active Problems (Updated 10/10/23 @ 15:46 by Abbi Florian MD) COPD exacerbation (Acute) Marijuana smoker (Acute) Personal history of colonic polyps (Acute) Osteomyelitis (Acute) Osteomyelitis of finger of right hand (Acute) Foreign body of right thumb (Acute) Ex-smoker (Acute) COPD (chronic obstructive pulmonary disease) (Acute) Past Medical History Medical History (Updated 10/10/23 @ 15:46 by Abbi Florian MD) COPD exacerbation Hypothyroid HTN (hypertension) Ex-smoker COPD (chronic obstructive pulmonary disease) Family History Family history of problems with anesthesia: No Surgical History Surgical History History of esophagogastroduodenoscopy (EGD) History of Problems with Anesthesia: No Social History Social History Patient Tobacco Use Status: Former Tobacco user Tobacco use type: Cigarette Years Smoked: 40 years Current occupational status: disabled 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
--- NOTE | 2024-01-13 09:50 | HO.ANESPROP2 ---
Documented by User: Octavia Ramey NP 01/13/24 09:51 HPI - Anesthesia Eval Consult details Narrative: 58yo M for Colonoscopy PMFSH Active Problems Active Problems: All Active Problems COPD exacerbation (Acute) Marijuana smoker (Acute) Personal history of colonic polyps (Acute) Osteomyelitis (Acute) Osteomyelitis of finger of right hand (Acute) Foreign body of right thumb (Acute) Ex-smoker (Acute) COPD (chronic obstructive pulmonary disease) (Acute) Past Medical History Medical History (Updated 01/14/24 @ 13:40 by Oneyda Corona MD) Osteomyelitis Felon of finger of right hand COPD exacerbation Hypothyroid HTN (hypertension) Ex-smoker COPD (chronic obstructive pulmonary disease) Family History Family history of problems with anesthesia: No Surgical History Surgical History (Updated 01/14/24 @ 13:42 by Oneyda Corona MD) History of incision and drainage History of esophagogastroduodenoscopy (EGD) History of Problems with Anesthesia: No Social History Social History Patient Tobacco Use Status: Former Tobacco user Tobacco use type: Cigarette Years Smoked: 40 years Substance Use Frequency: Daily Are you DNR?: No Advance Directives: No Advance Directives Information Provided: Yes Nutrition Risks: No Nutritional Risk Current occupational status: disabled 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 Allergies Allergy/AdvReac Type Severity Reaction Status Date / Time No Known Allergies Allergy Verified 01/14/24 12:28 Home Medications ?Medication ?Instructions ?Recorded ?Confirmed ?Last Taken ?Type levothyroxine 150 mcg tablet 150 mcg PO DAILY 04/27/21 01/14/24 01/14/24 History lisinopril 10 mg tablet 10 mg PO DAILY 04/27/21 01/14/24 01/14/24 History Assessment and Plan Assessment Anesthesia Assessment: Chart Reviewed Final Anesthetic Review Family History of Problems with Anesthesia: No History of Problems with Anesthesia: No Documented by User: Oneyda Corona MD 01/14/24 14:12 [facility] Active Problems Active Problems: All Active Problems Marijuana smoker (Acute) Personal history of colonic polyps (Acute) Ex-smoker (Acute) COPD (chronic obstructive pulmonary disease) (Acute) Dry cough H/o Heavy Proteinuria-was seeing Dr Galo. Last note in record was from 2008 but patient states he has seen Dr Galo within the last year and a half Past Medical History Medical History (Updated 01/14/24 @ 13:40 by Oneyda Corona MD) Osteomyelitis Felon of finger of right hand COPD exacerbation Hypothyroid HTN (hypertension) Ex-smoker COPD (chronic obstructive pulmonary disease) Family History Family history of problems with anesthesia: No Surgical History Surgical History (Updated 01/14/24 @ 13:42 by Oneyda Corona MD) History of incision and drainage History of esophagogastroduodenoscopy (EGD) History of Problems with Anesthesia: No Social History Social History Patient Tobacco Use Status: Former Tobacco user Tobacco use type: Cigarette Years Smoked: 40 years Substance Use Frequency: Daily Are you DNR?: No Advance Directives: No Advance Directives Information Provided: Yes Nutrition Risks: No Nutritional Risk Current occupational status: disabled 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 Allergies Allergy/AdvReac Type Severity Reaction Status Date / Time No Known Allergies Allergy Verified 01/14/24 12:28 Home Medications ?Medication ?Instructions ?Recorded ?Confirmed ?Last Taken ?Type levothyroxine 150 mcg tablet 150 mcg PO DAILY 04/27/21 01/14/24 01/14/24 History lisinopril 10 mg tablet 10 mg PO DAILY 04/27/21 01/14/24 01/14/24 History Exam Height,Weight and Vital Signs: Height 5 ft 5 in Weight 58.967 kg Vital Signs Temp Pulse Resp BP Pulse Ox O2 Del Method 01/14/24 12:50 97.9 F 87 18 131/89 97 Room Air Airway Mallampati Class: II TM Dist: >3cm Neck ROM: Full Loose/Missing/Broken Teeth: Yes (Missing molars 2 bottom right, 1 bottom right and 1 top right. Denies broken or loose teeth ) Heart: RRR Lungs: Bilateral wheezes. Diminished Assessment and Plan Assessment Anesthesia Assessment: Anesthesia Plan Discussed and Chart Reviewed Final Anesthetic Review Family History of Problems with Anesthesia: No History of Problems with Anesthesia: No NPO: Yes ASA Class: III Final Preanesthetic Review: No Changes in Pt Med Stat, Meds/Allgs Chart Reviewed, Consent Obtained/Reviewed and Anes Risks/Benef Reviewed Patient Risk: Intermediate Procedure Risk: Low Assessment/Block/Sedation in SS: Assess/Block/Sedation-SS Anesthetic Plan Anesthetic Plan: MAC: and TIVA Disposition: Standard PACU
[2024-01-14 12:25] VITALS: BMI 21.6
[2024-01-14] MEDS: Lactated Ringers 1,000 ML 100 ML IVCONT (12:35)
[2024-01-14] MEDS: Albuterol Sulfate (0.083%) 2.5 MG/3 ML VIAL.NEB INHALE (12:46)
--- NOTE | 2024-01-14 12:46 | MHC.SHP ---
Pre-Procedural Eval Section A - 24 Hr Update-Section A only Date of Service: 01/14/24 Section B - Complete if H&P > 30 days Chief Complaint: History of polyps Details of Present Illness: COPD (chronic obstructive pulmonary disease) Ex-smoker HTN (hypertension) Hypothyroid Allergies: Allergies Allergy/AdvReac Type Severity Reaction Status Date / Time No Known Allergies Allergy Verified 01/14/24 12:28 Review of Systems Review of Systems Comment: 10 point ROS negative Exam Exam Comment: Gen appear: No acute distress HEENT: no icterus Chest: No overt resp distress Abd: soft, nontender, nondistended Psych: Stable affect, answering questions appropriately Neuro: A/Ox3 noted to move all extremities spontaneously Ext: no peripheral edema Plan Diagnosis/Plan: Unchanged I have reviewed the history and physical and performed a pertinent physical examination on my patient. No changes have occurred unless specified. Time Spent With Patient Time: Total time managing care of this patient today ____ minutes.
[2024-01-14 12:50] VITALS: BP 131/89; PULSE 87; RESP 18; TEMP 36.6; O2SAT 97
--- NOTE | 2024-01-14 14:09 | P.OP_ITS ---
Operative Note Operative Note Date of Service: 01/14/24 Narrative: Procedure: Colonoscopy Indication: Personal hx of polyps Endoscopist: Bria Holbrook MD Anesthesia Provider: Rachelle Alejandro CRNA Anesthesia type: MAC Instrument: Olympus [id number]-H190L Consent: Indication, risks vs benefits, and alternatives were discussed with the patient who gave written informed consent to proceed. EKG, pulse, pulse oximetry and blood pressure were monitored throughout the procedure. Please see anesthesia flowsheet. Procedure: The patient was brought to the procedure room and placed in the left lateral decubitus position. IV medications were administered by the anesthesia provider in attendance. A digital rectal exam was performed which was normal. A distal attachment cap was affixed to the tip of the scope and the colonoscope was then inserted through the anus and advanced through the colon to the cecum at 75 cm,and terminal ileum. Appendiceal orifice and ileocecal valve were identified. Mucosa was carefully examined under high definition white light as the instrument was slowly withdrawn in a retrograde panoramic fashion. Retroflexion was performed in ascending colon and rectum. The procedure was not difficult. There were no immediate obvious complications. The quality of the prep was BBPS: 3+2+3 = adequate Withdrawal time 16 minutes. Limitations: No limitations. Findings: Mucosa: Normal to cecum and terminal ileum. Protruding lesions: * 2 sessile polyp of size 3-4 mm in transverse colon. Cold snare polypectomy was performed. The polyps were completely removed and retrieved. * 2 sessile polyp of size 3 mm in descending colon. Cold snare polypectomy was performed. The polyps was completely removed and retrieved. * One pedunculated polyp of size 15 mm was noted in the sigmoid colon. Hot snare polypectomy was performed. The polyp was completely removed retrieved. * 2 sessile polyps of size 2 mm in sigmoid colon. Cold snare polypectomy was performed. The polyps were completely removed and retrieved. * Large internal hemorrhoids without stigmata of recent bleeding. Impression: 1. Normal colon and terminal ileum mucosa 2. Total of 7 polyps removed 3. Internal hemorrhoids Recommendations: - Follow path results. - Repeat colonoscopy in 3 years if the largest polyp is an adenoma
[2024-01-14 14:41] VITALS: BP 108/74; PULSE 65; RESP 16; TEMP 36.6; O2SAT 100
[2024-01-14 14:56] VITALS: BP 115/84; PULSE 68; RESP 18; TEMP 36.6; O2SAT 100
== END 2024-01-14 15:28 | disposition home or self-care (01) ==
PROVIDERS: PCP Family Medicine; Visit Provider Internal Medicine
PROC: 0DJD8ZZ Inspection of Lower Intestinal Tract, Via Natural or Artificial Opening Endoscopic (ICD-10-PCS; CPT 45378; principal; 2024-01-14 14:20)
DX: Z12.11 Encounter for screening for malignant neoplasm of colon (principal); Z86.010 Personal history of colon polyps; D12.3 Benign neoplasm of transverse colon; D12.4 Benign neoplasm of descending colon; D12.5 Benign neoplasm of sigmoid colon; K64.8 Other hemorrhoids; J44.9 Chronic obstructive pulmonary disease, unspecified; I10 Essential (primary) hypertension; E03.9 Hypothyroidism, unspecified; Z79.899 Other long term (current) drug therapy; Z87.891 Personal history of nicotine dependence; F12.90 Cannabis use, unspecified, uncomplicated
CPT/HCPCS: 45385; 88305; J2704

== ENCOUNTER → 2024-01-14 11:07 | Outpatient (BNV) | payer OTHER, SELFPAY | PROVIDERS: PCP Family Medicine; Visit Provider Internal Medicine | DX: Z12.11 Encounter for screening for malignant neoplasm of colon (principal); Z86.010 Personal history of colon polyps; D12.3 Benign neoplasm of transverse colon; D12.4 Benign neoplasm of descending colon | CPT/HCPCS: 45385 ==

== ENCOUNTER 2024-02-03 13:18 | Outpatient (AMB) | payer OTHER, SELFPAY ==
[2024-02-03 13:25] VITALS: BP 132/90; PULSE 72; BMI 22.2
--- NOTE | 2024-02-03 13:25 | A.OFFVIS_ITS ---
Vital Signs 02/03/24 13:25 Height 5 ft 5 in Weight 133 lb 9.602 oz BMI 22.2 BP 132/90 H Blood Pressure Location Lt brachial Position Sitting Pulse 72 Intake Visit Reasons: S/P Colon Intake Note: Sean returns to in office follow up s/p colonoscopy performed on 01/14/24. CC: Patient reports doing well and denies having any GI symptoms today. Raise Driller Required: No Accompanied by: Self / Same As Patient Allergies No Known Allergies Allergy (Verified 02/03/24 13:28) HPI Comments Details: 57 year old male presenting to the office for discussion of colon cancer screening. Patient is at average risk of colon cancer due to no family history of colon cancer or advanced colon polyps in first degree relatives. Patient does not have any other gastrointestinal symptoms to include abdominal pain, nausea, vomiting, diarrhea, blood in stool, weight loss. Labs not available but pt plans to go tmrw. Last colo 2013 (Dr Cortes): x 4 tubular adenoma. He is aware that he was supposed to return in 3 years however at that time could not tolerate prep and then did not reschedule his procedure thereafter. 01/14/24: 1. Normal colon and terminal ileum mucosa 2. Total of 7 polyps removed 3. Internal hemorrhoids Path: All tubular adenomas. 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 Bulletin board updated in [employer] Follow-up p.r.n. in the meantime Coding Level of Care Code Est Pt Level 3 (72753) Diagnoses Personal history of colonic polyps Z86.010
== END 2024-02-03 15:03 | disposition home or self-care (01) ==
PROVIDERS: PCP Family Medicine; Visit Provider Internal Medicine
DX: D12.3 Benign neoplasm of transverse colon (principal); D12.4 Benign neoplasm of descending colon; D12.5 Benign neoplasm of sigmoid colon; K64.8 Other hemorrhoids
CPT/HCPCS: 99213

== ENCOUNTER → 2024-02-03 13:18 | Outpatient (BNVA) | payer OTHER, SELFPAY | PROVIDERS: PCP Family Medicine; Visit Provider Internal Medicine | DX: Z86.010 Personal history of colon polyps (principal) | CPT/HCPCS: 99212 ==

== ENCOUNTER 2024-02-13 13:42 | Outpatient (AMB) | payer OTHER, SELFPAY ==
--- NOTE | 2024-02-13 14:13 | MHC.OFFVIS ---
Vital Signs 02/13/24 14:14 Height 5 ft 5 in Weight 134 lb 7.712 oz BMI 22.4 BP 108/70 Blood Pressure Location Rt brachial Position Sitting Pulse 72 Pulse Source Pulse Oximeter Pulse Oximetry (%) 97 Oxygen Delivery Method Room Air Intake Visit Reasons: copd Allergies No Known Allergies Allergy (Verified 02/13/24 14:42) Medication List - Last Reconciled 02/13/24 by Abbi Florian MD Advair HFA 230-21 mcg/actuation (fluticasone propion-salmeterol) 2 puffs PO BID NS levothyroxine 150 mcg PO DAILY lisinopril 10 mg PO DAILY Ventolin HFA 90 mcg/actuation (albuterol sulfate) 2 puffs PO Q4-6H PRN NS Do you need a note to return to daycare/school/sports/work: No HPI HPI copd: Details: This 58 years old very pleasant gentleman is here for his routine follow-up for bronchial asthma/COPD. He has not gone back to smoking. He smokes pot once or twice a day but not every day. He has remained very good as far as breathing is concerned. He denies any cough or wheezing. He does get short of breath when he goes up stairs or walks fast. 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 Review of Systems Const All systems reviewed & are unremarkable except as noted in HPI and below Eyes Reports no additional complaints ENT Reports nasal congestion (Mild off and) Card Denies chest pain, Denies irregular heart rhythm and Denies leg edema Resp Reports as per HPI GI Reports no additional complaints Reports no additional complaints Musc Reports no additional complaints Skin/Breast Reports system reviewed and no additional complaints, except as documented Neuro Reports no additional complaints Psych Reports no additional complaints Endo Reports other (Being treated for hypothyroidism) Aller/Immun Reports no additional complaints Physical Exam Vital Signs: Last Vital Signs Pulse 72 02/13/24 14:14 BP 108/70 02/13/24 14:14 Pulse Ox 97 02/13/24 14:14 Oxygen Delivery Method Room Air 02/13/24 14:14 BMI result Body Mass Index 22.4 Const General: healthy appearing, comfortable, no acute distress, alert and awake Orientation/consciousness: patient oriented x3 HEENT Head: Yes normal to inspection General nose exam: No nasal polyps present and No nasal discharge present Face and sinus: Yes sinuses nontender Mouth: oropharynx normal Throat: Yes posterior oropharynx normal Eyes General: appearance normal, both eyes and all related structures Neck Neck: Yes normal visual inspection, Yes no lymphadenopathy, Yes trachea midline and Yes no JVD Thyroid: Thyroid normal Chest Chest palpation & inspection: normal inspection of the chest, normal palpation of entire chest wall and no tenderness Resp Other: Percussion note is resonant, has good breath sounds on both sides, slightly prolonged expiratory phase. His breath sounds are somewhat harsh with a few expiratory wheezes especially over the lower lobes. Cardio Palpation: normal PMI Rate: regular rate Rhythm: regular rhythm Heart sounds: no gallops and no murmurs Peripheral pulses: Peripheral pulses 2+ throughout GI Palpation (GI): Soft to palpation, nontender, No hepatosplenomegaly present and no masses Auscultation: normal bowel sounds Back/Spine/Pelvis Thoracic/Lumbar Spine: thoracic and lumbar spine normal to inspection Skin General skin exam: no rashes or lesions noted Neuro General: patient oriented x3 and no focal motor deficits Cranial nerves: Yes CN's II-XII intact bilaterally Extrem General: Yes normal to inspection, Yes no clubbing, cyanosis or edema and Yes no calf tenderness Psych Appearance: grossly normal and well kempt Speech and movement: Normal speech and movement present Assessment & Plan Assessment & Plan (1) Ex-smoker: Comment: HE IS COMMENDED FOR NOT SMOKING. COUNSELED THAT HE SHOULD NOT RESUME CIGARETTES ANY TIME. HE HAS ALSO CUT DOWN THE USE OF WEED, TO ONLY ABOUT ONCE A DAY AND EVERY DAY . Code(s): Z87.891 - Personal history of nicotine dependence Category: Social Hx Plan: As noted above he is commended for not smoking cigarettes. I also counseled him to cut down the use of smoking weed , as much as he can (2) COPD (chronic obstructive pulmonary disease): Comment: HE DOES HAVE CHRONIC OBSTRUCTIVE PULMONARY DISEASE, MILD TO MODERATE, IT IS REMAINING WELL CONTROLLED AND STABLE. Code(s): J44.9 - Chronic obstructive pulmonary disease, unspecified Category: Medical Plan: [place]: ADVAIR HFA 230-21 2 PUFFS B.I.D. BUT IF SYMPTOMS ARE UNDER CONTROL THEN HE MIGHT CUT IT DOWN TO ONLY ONCE A DAY. VENTOLIN HFA 2 PUFFS Q 4-6 HOURS P.R.N.. Coding Level of Care Code Est Pt Level 3 (85929) Diagnoses Ex-smoker Z87.891 COPD (chronic obstructive pulmonary disease) J44.9
[2024-02-13 14:14] VITALS: BP 108/70; PULSE 72; O2SAT 97; BMI 22.4
== END 2024-02-13 14:39 | disposition home or self-care (01) ==
PROVIDERS: PCP Family Medicine; Visit Provider Internal Medicine
DX: Z87.891 Personal history of nicotine dependence (principal); J44.9 Chronic obstructive pulmonary disease, unspecified
CPT/HCPCS: 99213

== ENCOUNTER → 2024-02-13 13:42 | Outpatient (BNVA) | payer OTHER, SELFPAY | PROVIDERS: PCP Family Medicine; Visit Provider Internal Medicine | DX: J44.9 Chronic obstructive pulmonary disease, unspecified (principal); Z87.891 Personal history of nicotine dependence | CPT/HCPCS: 99212 ==

== ENCOUNTER 2024-04-17 14:52 | Outpatient (AMB) | payer OTHER, SELFPAY ==
--- NOTE | 2024-04-17 15:18 | HO.NEPHOV_ITS ---
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 He is known to have biopsy-proven FSGS causing CKD. His renal functions have been stable. He has been on lisinopril which he takes regularly. He avoids nonsteroidal anti-inflammatories and maintain good hydration. His blood pressure has been at goal. He is not a diabetic. He has no pedal edema. He denies any froth or foam in the urine. He has been on Cozaar at point which he discontinued due to concern for erectile dysfunction. His microalbumin creatinine ratio in 2013 was 774 and in 2014 was 547 which had improved to 356 in 2018. He denies any active drug use but smokes marijuana. He denies any history of coronary artery disease, congestive heart failure, carotid stenosis, peripheral arterial disease, renal artery stenosis or having any autoimmune diseases. Currently he feels well. He has not had any blood work for a long time. 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 Review of Systems Const All systems reviewed & are unremarkable except as noted in HPI and below Physical Exam Vital Signs: Last Vital Signs Pulse 76 04/17/24 15:20 BP 120/82 04/17/24 15:20 Pulse Ox 96 04/17/24 15:20 BMI result Body Mass Index 22.0 Const General: comfortable and no acute distress Orientation/consciousness: patient oriented x3 HEENT Head: Yes normocephalic Mouth: Normal oral and palatal mucosa present Eyes EOM: EOMs intact bilaterally Neck Neck: Yes supple Resp Auscultation: clear to auscultation bilaterally Cardio Jugular venous distension: no JVD Rate: regular rate GI Palpation (GI): Soft to palpation Auscultation: normal bowel sounds General: Yes no CVA tenderness Back/Spine/Pelvis Back: no CVA tenderness Skin General skin exam: no rashes or lesions noted Neuro General: patient oriented x3 and moves all extremities Extrem General: Yes no pedal edema Results Reviewed Nephrology Results: Hgb 15.6 g/dl (14.0-18.0) 04/19/23 WBC 10.3 X10*3/uL (4.8-10.8) 04/19/23 Plt Count 275 X10*3/uL (160-400) 04/19/23 Sodium 140 mmol/L (135-145) 04/19/23 Potassium 3.5 mmol/L (3.3-5.1) 04/19/23 Chloride 105 mmol/L (96-108) 04/19/23 Carbon Dioxide 22 mmol/L (22-29) 04/19/23 BUN 14 mg/dL (9-16) 04/19/23 Creatinine 1.09 mg/dL (0.5-1.4) 04/19/23 Calcium 9.1 mg/dL (8.4-10.2) 04/19/23 Assessment & Plan Assessment & Plan (1) HTN (hypertension): Code(s): I10 - Essential (primary) hypertension Category: Medical Qualifiers: Hypertension type: primary hypertension Qualified Code(s): I10 - Essential (primary) hypertension (2) Proteinuria: Code(s): R80.9 - Proteinuria, unspecified Category: Medical Qualifiers: Proteinuria type: other Qualified Code(s): R80.8 - Other proteinuria (3) CKD stage 3a, GFR 45-59 ml/min: Code(s): N18.31 - Chronic kidney disease, stage 3a Category: Medical (4) FSGS (focal segmental glomerulosclerosis): Code(s): N05.1 - Unspecified nephritic syndrome with focal and segmental glomerular lesions Category: Medical Plan He has mild CKD, history proteinuria and hypertension. He is known to have biopsy-proven FSGS causing CKD. His renal functions have been stable. He has been on lisinopril which he takes regularly. He avoids nonsteroidal anti- inflammatories and maintain good hydration. His blood pressure has been at goal. He is not a diabetic. He has been on Cozaar at point which he discontinued due to concern for erectile dysfunction. His microalbumin creatinine ratio in 2013 was 774 and in 2014 was 547 which had improved to 356 in 2018. I ordered 24 hour urine for protein and creatinine clearance along with the blood work. I would not make any medication changes today. All these have been explained in detail. Answered all questions. Follow-up appointment given. Orders: Orders Protein, 24 Hr Urine Group 04/17/24 R80.9 - Proteinuria, unspecified, I10 - Ess ential (primary) hypertension Electrolytes 04/17/24 I10 - Essential (primary) hypertension, R80.9 - Proteinuria, unspecified Parathyroid Hormone Intact 04/17/24 I10 - Essential (primary) hypertension, R80.9 - Proteinuria, unspecified Creatinine Clearance Urine 24U 04/17/24 R80.9 - Proteinuria, unspecified, I10 - Essential (primary) hypertension Creatinine 04/17/24 I10 - Essential (primary) hypertension, R80.9 - Proteinuria, unspecified Blood Urea Nitrogen 04/17/24 I10 - Essential (primary) hypertension, R80.9 - Proteinuria, unspecified Calcium 04/17/24 I10 - Essential (primary) hypertension, R80.9 - Proteinuria, unspecified Coding Level of Care Code New Pt Level 4 (68170) Diagnoses Primary hypertension I10 Hypertension type: primary hypertension Other proteinuria R80.8 Proteinuria type: other CKD stage 3a, GFR 45-59 ml/min N18.31 FSGS (focal segmental glomerulosclerosis) N05.1
[2024-04-17 15:20] VITALS: BP 120/82; PULSE 76; O2SAT 96; BMI 22.0
== END 2024-04-17 15:47 | disposition home or self-care (01) ==
PROVIDERS: PCP Family Medicine; Visit Provider Internal Medicine Nephrology
DX: I10 Essential (primary) hypertension (principal); R80.8 Other proteinuria; N18.31 Chronic kidney disease, stage 3a; N05.1 Unspecified nephritic syndrome with focal and segmental glomerular lesions
CPT/HCPCS: 99204

== ENCOUNTER → 2024-04-17 14:52 | Outpatient (BNVA) | payer OTHER, SELFPAY | PROVIDERS: PCP Family Medicine; Visit Provider Internal Medicine Nephrology | DX: R80.9 Proteinuria, unspecified (principal); N18.31 Chronic kidney disease, stage 3a; N05.1 Unspecified nephritic syndrome with focal and segmental glomerular lesions | CPT/HCPCS: 99202 ==

== ENCOUNTER 2024-05-30 08:50 | Outpatient (REF) | payer OTHER, SELFPAY ==
[2024-05-30 09:42] LABS: Creatinine, mg/dL 36.55; Protein mg/dL 26 mg/dL
[2024-05-30 10:58] LABS: Blood Urea Nitrogen 11 mg/dL (9-16); Calcium 9.1 mg/dL (8.4-10.2)
[2024-05-30 10:59] LABS: Parathyroid Hormone Intact 87.4 pg/mL (8.7-77.1)
[2024-05-30 11:18] LABS: Alanine Aminotransferase 16 U/L (0-40); Alkaline Phosphatase 84 U/L (39-117); Anion Gap 12 (12-20); Aspartate Amino Transferase 21 U/L (5-37); Bilirubin Direct 0.1 mg/dL (0.0-0.5); Bilirubin Total 0.5 mg/dL (0.0-1.0); Blood Urea Nitrogen 11 mg/dL (9-16); Calcium 9.2 mg/dL (8.4-10.2); Carbon Dioxide 28 mmol/L (22-29); Chloride 105 mmol/L (96-108); Cholesterol 178 mg/dL (<200); Estimated Glomerular Filt Rate > 60; Glucose Random 95 mg/dL (60-115); HDL Cholesterol 47 mg/dL (>40); LDL Cholesterol Calculated 111 mg/dL (<100); Potassium 4.4 mmol/L (3.3-5.1); Sodium 141 mmol/L (135-145); Total Protein 6.8 g/dL (6.5-8.0); Triglycerides 100 mg/dL (<150)
[2024-05-30 11:24] LABS: TSH reflex Free T4 0.73 uIU/mL (0.32-4.0)
[2024-05-30 11:24] LABS: Creatinine (CrCl) 1.21 mg/dL (0.5-1.4)
[2024-05-30 11:25] LABS: Creatinine Clearance 8.3 mL/min (85-125); Creatinine, 24Hr Urine 0.1 G/Day (1.0-2.0); Protein 24 Hr Urine 104 mg/Day (<150); Total Volume 24 Hour Urine 400 mL
[2024-05-30 11:44] LABS: Creatinine Urine 54.73 mg/dL; Microalbum/Creatinine Ratio Ur 610.2 ug/mg cr (<30)
== END 2024-05-30 08:51 | disposition home or self-care (01) ==
LOC: HO.LAB 08:50
PROVIDERS: PCP Family Medicine; Visit Provider Internal Medicine Nephrology
DX: I10 Essential (primary) hypertension (principal); E03.9 Hypothyroidism, unspecified; R80.9 Proteinuria, unspecified
CPT/HCPCS: 36415; 80048; 80061; 80076; 82043; 82310; 82570; 82575; 83970; 84156; 84443; 84520

== ENCOUNTER 2024-06-03 15:56 | Outpatient (AMB) | payer OTHER, SELFPAY ==
[2024-06-03 16:05] VITALS: BP 130/80; BMI 22.7
--- NOTE | 2024-06-03 16:05 | HO.NEPHOV ---
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 He is known to have biopsy-proven FSGS causing CKD. His renal functions have been stable. He has been on lisinopril which he takes regularly. He avoids nonsteroidal anti-inflammatories and maintain good hydration. His blood pressure has been at goal. He is not a diabetic. He has no pedal edema. He denies any froth or foam in the urine. He has been on Cozaar at point which he discontinued due to concern for erectile dysfunction. His microalbumin creatinine ratio in 2013 was 774 and in 2014 was 547 which had improved to 356 in 2018. He denies any active drug use but smokes marijuana. He denies any history of coronary artery disease, congestive heart failure, carotid stenosis, peripheral arterial disease, renal artery stenosis or having any autoimmune diseases. Currently he feels well. 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 Review of Systems Const All systems reviewed & are unremarkable except as noted in HPI and below Physical Exam Vital Signs: Last Vital Signs BP 130/80 06/03/24 16:05 BMI result Body Mass Index 22.7 Const General: comfortable and no acute distress Orientation/consciousness: patient oriented x3 HEENT Head: Yes normocephalic Mouth: Normal oral and palatal mucosa present Eyes EOM: EOMs intact bilaterally Neck Neck: Yes supple Resp Auscultation: clear to auscultation bilaterally Cardio Jugular venous distension: no JVD Rate: regular rate GI Palpation (GI): Soft to palpation Auscultation: normal bowel sounds General: Yes no CVA tenderness Back/Spine/Pelvis Back: no CVA tenderness Skin General skin exam: no rashes or lesions noted Neuro General: patient oriented x3 and moves all extremities Extrem General: Yes no pedal edema Results Reviewed Nephrology Results: Sodium 141 mmol/L (135-145) 05/30/24 Potassium 4.4 mmol/L (3.3-5.1) 05/30/24 Chloride 105 mmol/L (96-108) 05/30/24 Carbon Dioxide 28 mmol/L (22-29) 05/30/24 BUN 11 mg/dL (9-16) 05/30/24 Creatinine 1.21 mg/dL (0.5-1.4) 05/30/24 Calcium 9.2 mg/dL (8.4-10.2) 05/30/24 PTH Intact 87.4 pg/mL (8.7-77.1) H 05/30/24 Urine Creatinine 54.73 mg/dL 05/30/24 Assessment & Plan Assessment & Plan (1) FSGS (focal segmental glomerulosclerosis): Code(s): N05.1 - Unspecified nephritic syndrome with focal and segmental glomerular lesions Category: Medical (2) CKD stage 3a, GFR 45-59 ml/min: Code(s): N18.31 - Chronic kidney disease, stage 3a Category: Medical (3) Proteinuria: Code(s): R80.9 - Proteinuria, unspecified Category: Medical Qualifiers: Proteinuria type: other Qualified Code(s): R80.8 - Other proteinuria (4) HTN (hypertension): Code(s): I10 - Essential (primary) hypertension Category: Medical Qualifiers: Hypertension type: primary hypertension Qualified Code(s): I10 - Essential (primary) hypertension Plan He has mild CKD, history proteinuria and hypertension. He is known to have biopsy-proven FSGS causing CKD. His renal functions have been stable. He has been on lisinopril which he takes regularly. I increased the lisinopril to 20 mg daily. He avoids nonsteroidal anti-inflammatories and maintain good hydration. His blood pressure has been at goal. He is not a diabetic. He has been on Cozaar at point which he discontinued due to concern for erectile dysfunction. His microalbumin creatinine ratio in 2013 was 774 and in 2014 was 547 which had improved to 356 in 2018. All these have been explained in detail. Answered all questions. Follow-up lab work ordered & follow-up appointment given. Orders: Orders Blood Urea Nitrogen 06/03/24 N05.1 - Unspecified nephritic syndrome with focal and segmental glomerular lesions, N18.31 - Chronic kidney disease, stage 3a Electrolytes 06/03/24 N05.1 - Unspecified nephritic syndrome with focal and segmental glomerular lesions, N18.31 - Chronic kidney disease, stage 3a Protein Creatinine Ratio, Ur 06/03/24 N05.1 - Unspecified nephritic syndrome with focal and segmental glomerular lesions, N18.31 - Chronic kidney disease, stage 3a Creatinine 06/03/24 N05.1 - Unspecified nephritic syndrome with focal and segmental glomerular lesions, N18.31 - Chronic kidney disease, stage 3a Calcium 06/03/24 N05.1 - Unspecified nephritic syndrome with focal and segmental glomerular lesions, N18.31 - Chronic kidney disease, stage 3a Medications: Changed From lisinopril 20 mg PO DAILY To lisinopril 20 mg PO DAILY 30 tabs 3RF Coding Level of Care Code Est Pt Level 4 (10106) Diagnoses FSGS (focal segmental glomerulosclerosis) N05.1 CKD stage 3a, GFR 45-59 ml/min N18.31 Other proteinuria R80.8 Proteinuria type: other Primary hypertension I10 Hypertension type: primary hypertension
== END 2024-06-03 16:20 | disposition home or self-care (01) ==
PROVIDERS: PCP Family Medicine; Visit Provider Internal Medicine Nephrology
DX: N05.1 Unspecified nephritic syndrome with focal and segmental glomerular lesions (principal); N18.31 Chronic kidney disease, stage 3a; R80.8 Other proteinuria; I10 Essential (primary) hypertension
CPT/HCPCS: 99214

== ENCOUNTER → 2024-06-03 15:56 | Outpatient (BNVA) | payer OTHER, SELFPAY | PROVIDERS: PCP Family Medicine; Visit Provider Internal Medicine Nephrology | DX: N05.1 Unspecified nephritic syndrome with focal and segmental glomerular lesions (principal); N18.31 Chronic kidney disease, stage 3a; R80.8 Other proteinuria | CPT/HCPCS: 99212 ==

== ENCOUNTER 2024-07-10 14:07 | Outpatient (REF) | payer OTHER, SELFPAY ==
[2024-07-10 16:59] LABS: Creatinine Urine 126.91 mg/dL
[2024-07-10 17:08] LABS: Microalbum/Creatinine Ratio Ur 683.1 ug/mg cr (<30)
== END 2024-07-10 14:08 | disposition home or self-care (01) ==
LOC: HO.HHCL 14:07
PROVIDERS: Visit Provider Family Medicine
DX: I10 Essential (primary) hypertension (principal)
CPT/HCPCS: 82043; 82570

== ENCOUNTER 2024-08-10 12:51 | Outpatient (REF) | payer OTHER, SELFPAY | END 2024-08-10 12:52 | disposition home or self-care (01) | LOC: HO.XRAY 12:51 | PROVIDERS: PCP Family Medicine; Visit Provider Internal Medicine | DX: J44.9 Chronic obstructive pulmonary disease, unspecified (principal); F12.90 Cannabis use, unspecified, uncomplicated; Z87.891 Personal history of nicotine dependence | CPT/HCPCS: 71046; 94010; 99212 ==

== ENCOUNTER 2024-08-10 12:51 | Outpatient (AMB) | payer OTHER, SELFPAY ==
[2024-08-10 13:11] VITALS: BP 112/78; PULSE 78; O2SAT 97; BMI 22.7
--- NOTE | 2024-08-10 13:11 | A.OFFVIS_ITS ---
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 HE HAS NOT GONE BACK TO SMOKING. HE COMPLAINS OF MILD INTERMITTENT COUGH. HE COMPLAINS OF INCREASED SHORTNESS OF BREATH ON WALKING IN THE HOUSE IF HE WALKS [place] ON THE [place]. HE USES ADVAIR HFA 230-252 PUFFS B.I.D. REGULARLY AND HE NEEDS TO USE VENTOLIN ONLY ONCE IN A WHILE. 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 Review of Systems Const All systems reviewed & are unremarkable except as noted in HPI and below Eyes Reports no additional complaints ENT Reports nasal congestion (Mild off and) Card Denies chest pain, Denies irregular heart rhythm and Denies leg edema Resp Reports as per HPI GI Reports no additional complaints Reports no additional complaints Musc Reports no additional complaints Skin/Breast Reports system reviewed and no additional complaints, except as documented Neuro Reports no additional complaints Psych Reports no additional complaints Endo Reports other (Being treated for hypothyroidism) Aller/Immun Reports no additional complaints Physical Exam Vital Signs: Last Vital Signs Pulse 78 08/10/24 13:11 BP 112/78 08/10/24 13:11 Pulse Ox 97 08/10/24 13:11 Oxygen Delivery Method Room Air 08/10/24 13:11 BMI result Body Mass Index 22.7 Const General: healthy appearing, comfortable, no acute distress, alert and awake Orientation/consciousness: patient oriented x3 HEENT Head: Yes normal to inspection General nose exam: No nasal polyps present and No nasal discharge present Face and sinus: Yes sinuses nontender Mouth: oropharynx normal Throat: Yes posterior oropharynx normal Eyes General: appearance normal, both eyes and all related structures Neck Neck: Yes normal visual inspection, Yes no lymphadenopathy, Yes trachea midline and Yes no JVD Thyroid: Thyroid normal Chest Chest palpation & inspection: normal inspection of the chest, normal palpation of entire chest wall and no tenderness Resp Other: Percussion note is resonant . Breath sounds are moderately distant with prolonged expiratory phase. No wheezes or crepitations are heard. Cardio Palpation: normal PMI Rate: regular rate Rhythm: regular rhythm Heart sounds: no gallops and no murmurs Peripheral pulses: Peripheral pulses 2+ throughout GI Palpation (GI): Soft to palpation, nontender, No hepatosplenomegaly present and no masses Auscultation: normal bowel sounds Back/Spine/Pelvis Thoracic/Lumbar Spine: thoracic and lumbar spine normal to inspection Skin General skin exam: no rashes or lesions noted Neuro General: patient oriented x3 and no focal motor deficits Cranial nerves: Yes CN's II-XII intact bilaterally Extrem General: Yes normal to inspection, Yes no clubbing, cyanosis or edema and Yes no calf tenderness Psych Appearance: grossly normal and well kempt Speech and movement: Normal speech and movement present Office Procedures Spirometry Testing Spirometry Comments: In office spirometry completed with results given to Dr Florian. 13148- Spirometry Results Reviewed Results Reviewed: SPIROMETRY CHEST XRAY ORDERED Assessment & Plan Assessment & Plan (1) COPD (chronic obstructive pulmonary disease): Comment: HE DOES HAVE CHRONIC OBSTRUCTIVE PULMONARY DISEASE, SEVERE . HIS CHRONIC OBSTRUCTIVE PULMONARY DISEASE IS GETTING WORSE. HE HAS INCREASED DYSPNEA ON EXERTION. SPIROMETRY IS CONSISTENT WITH VERY SEVERE OBSTRUCTIVE AIRWAY DISORDER. Code(s): J44.9 - Chronic obstructive pulmonary disease, unspecified Category: Medical Plan: CONTINUE ADVAIR 230-21 2 PUFFS B.I.D. INCRUSE ELLIPTA 1 INHALATION DAILY IS ADDED VENTOLIN 2 PUFFS Q 6 HOURS P.R.N.. SPIROMETRY CHEST X-RAY . A QUALIFIES TO HAVE HANDICAP PLAQUE SO HIS THE APPLICATION FORM IS FILLED OUT. (2) Ex-smoker: Comment: HE IS COMMENDED FOR NOT SMOKING. COUNSELED THAT HE SHOULD NOT RESUME CIGARETTES ANY TIME. HE HAS ALSO CUT DOWN THE USE OF WEED, TO ONLY ABOUT ONCE A DAY AND EVERY DAY . Code(s): Z87.891 - Personal history of nicotine dependence Category: Social Hx Plan: ABOVE (3) Marijuana smoker: Comment: HAS PAST HISTORY OF SMOKING WEED ONCE OR TWICE A DAY . CURRENTLY HE HAS CUT IT DOWN TO NO MORE THAN ONCE A DAY. Code(s): F12.90 - Cannabis use, unspecified, uncomplicated Category: Medical Plan: KEEP THE USE OF SMOKING WEED LITTLE POSSIBLE Orders: Orders AMB Spirometry Testing Today J44.9 - Chronic obstructive pulmonary disease, unspecified Coding Level of Care Code Est Pt Level 4 (80801) Diagnoses COPD (chronic obstructive pulmonary disease) J44.9 Ex-smoker Z87.891 Marijuana smoker F12.90 CPT Codes Spirometry - CPT: 82944- Spirometry ([id number])
== END 2024-08-10 13:45 | disposition home or self-care (01) ==
PROVIDERS: PCP Family Medicine; Visit Provider Internal Medicine
DX: J44.9 Chronic obstructive pulmonary disease, unspecified (principal); Z87.891 Personal history of nicotine dependence; F12.90 Cannabis use, unspecified, uncomplicated
CPT/HCPCS: 94010; 99214

== ENCOUNTER 2024-08-25 09:16 | Outpatient (REF) | payer OTHER, SELFPAY ==
[2024-08-25 11:53] LABS: Creatinine Urine 91.95 mg/dL; Protein/Creatinine Ratio, Ur 0.47 (<0.2); Total Protein Urine Random 43 mg/dL (<12)
[2024-08-25 11:56] LABS: Anion Gap 10 (12-20); Blood Urea Nitrogen 9 mg/dL (9-16); Carbon Dioxide 28 mmol/L (22-29); Chloride 106 mmol/L (96-108); Cholesterol 195 mg/dL (<200); Estimated Glomerular Filt Rate > 60; Glucose Random 100 mg/dL (60-115); HDL Cholesterol 48 mg/dL (>40); LDL Cholesterol Calculated 120 mg/dL (<100); Potassium 3.6 mmol/L (3.3-5.1); Sodium 140 mmol/L (135-145); Triglycerides 136 mg/dL (<150)
== END 2024-08-25 09:17 | disposition home or self-care (01) ==
LOC: HO.HHCL 09:16
PROVIDERS: Internal Medicine Nephrology; Visit Provider Family Medicine
DX: Z00.00 Encounter for general adult medical examination without abnormal findings (principal); Z12.9 Encounter for screening for malignant neoplasm, site unspecified; N18.31 Chronic kidney disease, stage 3a; N05.1 Unspecified nephritic syndrome with focal and segmental glomerular lesions
CPT/HCPCS: 36415; 80048; 80061; 82570; 84156

== ENCOUNTER 2024-09-02 11:39 | Outpatient (AMB) | payer OTHER, SELFPAY ==
--- NOTE | 2024-09-02 11:59 | HO.NEPHOV ---
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 He is known to have biopsy-proven FSGS causing CKD. His renal functions have been stable. He has been on lisinopril which he takes regularly. He avoids nonsteroidal anti-inflammatories and maintain good hydration. His blood pressure has been at goal. He is not a diabetic. He has no pedal edema. He denies any froth or foam in the urine. He has been on Cozaar at point which he discontinued due to concern for erectile dysfunction. His microalbumin creatinine ratio in 2013 was 774 and in 2014 was 547 which had improved to 356 in 2018. He denies any active drug use but smokes marijuana. He denies any history of coronary artery disease, congestive heart failure, carotid stenosis, peripheral arterial disease, renal artery stenosis or having any autoimmune diseases. Currently he feels well. 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 Review of Systems Const All systems reviewed & are unremarkable except as noted in HPI and below Physical Exam Vital Signs: Last Vital Signs Pulse 74 09/02/24 12:03 BP 140/90 H 09/02/24 12:03 Pulse Ox 96 09/02/24 12:03 Oxygen Delivery Method Room Air 09/02/24 12:03 BMI result Body Mass Index 22.8 Const General: comfortable and no acute distress Orientation/consciousness: patient oriented x3 HEENT Head: Yes normocephalic Mouth: Normal oral and palatal mucosa present Eyes EOM: EOMs intact bilaterally Neck Neck: Yes supple Resp Auscultation: clear to auscultation bilaterally Cardio Jugular venous distension: no JVD Rate: regular rate GI Palpation (GI): Soft to palpation Auscultation: normal bowel sounds General: Yes no CVA tenderness Back/Spine/Pelvis Back: no CVA tenderness Skin General skin exam: no rashes or lesions noted Neuro General: patient oriented x3 and moves all extremities Extrem General: Yes no pedal edema Results Reviewed Nephrology Results: Sodium 140 mmol/L (135-145) 08/25/24 Potassium 3.6 mmol/L (3.3-5.1) 08/25/24 Chloride 106 mmol/L (96-108) 08/25/24 Carbon Dioxide 28 mmol/L (22-29) 08/25/24 BUN 9 mg/dL (9-16) 08/25/24 Creatinine 1.12 mg/dL (0.5-1.4) 08/25/24 Calcium 9.0 mg/dL (8.4-10.2) 08/25/24 PTH Intact 87.4 pg/mL (8.7-77.1) H 05/30/24 Urine Creatinine 91.95 mg/dL 08/25/24 Protein/Creatinin Ratio 0.47 (<0.2) H 08/25/24 Assessment & Plan Assessment & Plan (1) FSGS (focal segmental glomerulosclerosis): Code(s): N05.1 - Unspecified nephritic syndrome with focal and segmental glomerular lesions Category: Medical (2) CKD stage 3a, GFR 45-59 ml/min: Code(s): N18.31 - Chronic kidney disease, stage 3a Category: Medical (3) HTN (hypertension): Code(s): I10 - Essential (primary) hypertension Category: Medical Qualifiers: Hypertension type: primary hypertension Qualified Code(s): I10 - Essential (primary) hypertension Plan He has mild CKD, history proteinuria and hypertension. He is known to have biopsy-proven FSGS causing CKD. His renal functions have been stable. He has been on lisinopril which he takes regularly which I increased to 20 mg daily at the last visit. I plan to maximize the dose of it and add SGLT2i with time. He avoids nonsteroidal anti-inflammatories and maintain good hydration. His blood pressure has been at goal. He is not a diabetic. He has been on Cozaar at point which he discontinued due to concern for erectile dysfunction. His microalbumin creatinine ratio in 2014 was 774 and in 2015 was 547 which had improved to 356 in 2018. All these have been explained in detail. Answered all questions. Follow-up lab work ordered & follow-up appointment given. Orders: Orders Blood Urea Nitrogen 3 Months I10 - Essential (primary) hypertension, N05.1 - Unspecified nephritic syndrome with focal and segmental glomerular lesions, N18.31 - Chronic kidney disease, stage 3a Electrolytes 3 Months I10 - Essential (primary) hypertension, N05.1 - Unspecified nephritic syndrome with focal and segmental glomerular lesions, N18.31 - Chronic kidney disease, stage 3a Creatinine 3 Months I10 - Essential (primary) hypertension, N05.1 - Unspecified nephritic syndrome with focal and segmental glomerular lesions, N18.31 - Chronic kidney disease, stage 3a Protein Creatinine Ratio, Ur 3 Months I10 - Essential (primary) hypertension, N05.1 - Unspecified nephritic syndrome with focal and segmental glomerular lesions, N18.31 - Chronic kidney disease, stage 3a Coding Level of Care Code Est Pt Level 4 (18269) Diagnoses FSGS (focal segmental glomerulosclerosis) N05.1 CKD stage 3a, GFR 45-59 ml/min N18.31 Primary hypertension I10 Hypertension type: primary hypertension
[2024-09-02 12:03] VITALS: BP 140/90; PULSE 74; O2SAT 96; BMI 22.8
== END 2024-09-02 12:19 | disposition home or self-care (01) ==
PROVIDERS: PCP Family Medicine; Visit Provider Internal Medicine Nephrology
DX: I12.9 Hypertensive chronic kidney disease with stage 1 through stage 4 chronic kidney disease, or unspecified chronic kidney disease (principal); N18.31 Chronic kidney disease, stage 3a
CPT/HCPCS: 99214

== ENCOUNTER → 2024-09-02 11:39 | Outpatient (BNVA) | payer OTHER, SELFPAY | PROVIDERS: PCP Family Medicine; Visit Provider Internal Medicine Nephrology | DX: N05.1 Unspecified nephritic syndrome with focal and segmental glomerular lesions (principal); N18.31 Chronic kidney disease, stage 3a; I10 Essential (primary) hypertension | CPT/HCPCS: 99212 ==

== ENCOUNTER 2024-09-09 13:27 | Outpatient (AMB) | payer OTHER, SELFPAY ==
[2024-09-09 13:31] VITALS: BP 122/70; PULSE 69; O2SAT 97; BMI 23.1
--- NOTE | 2024-09-09 13:31 | MHC.OFFVIS ---
Vital Signs 09/09/24 13:31 Height 5 ft 5 in Weight 138 lb 14.259 oz BMI 23.1 BP 122/70 Blood Pressure Location Lt brachial Position Sitting Pulse 69 Pulse Source Pulse Oximeter Pulse Oximetry (%) 97 Oxygen Delivery Method Room Air Intake Visit Reasons: copd Intake Note: pt is here for follow up and states he is short of breath with carrying things, stairs and fast walking, and also when putting his shoes on. 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 Required: No Allergies No Known Allergies Allergy (Verified 09/09/24 13:45) Medication List - Last Reconciled 09/09/24 by Abbi Florian MD Advair HFA 230-21 mcg/actuation (fluticasone propion-salmeterol) 2 puffs PO BID NS levothyroxine 175 mcg PO DAILY lisinopril 20 mg PO DAILY umeclidinium 62.5 mcg/actuation (Incruse Ellipta) 1 inh inhalation BEDTIME Ventolin HFA 90 mcg/actuation (albuterol sulfate) 2 puffs PO Q4-6H PRN NS Do you need a note to return to daycare/school/sports/work: No HPI HPI copd: Details: This 58 years old gentleman with past history of smoking, has advanced chronic obstructive pulmonary disease. Since his last visit he has quit smoking except for 1 cigarettes once in a while. Cough is much less. Breathing is definitely improved, but he still gets short of breath when he climbs 1 flight of stairs or walks fast. He is using his inhalers regularly. 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 Review of Systems Const All systems reviewed & are unremarkable except as noted in HPI and below Eyes Reports no additional complaints ENT Reports nasal congestion (Mild off and) Card Denies chest pain, Denies irregular heart rhythm and Denies leg edema Resp Reports as per HPI GI Reports no additional complaints Reports no additional complaints Musc Reports no additional complaints Skin/Breast Reports system reviewed and no additional complaints, except as documented Neuro Reports no additional complaints Psych Reports no additional complaints Endo Reports other (Being treated for hypothyroidism) Aller/Immun Reports no additional complaints Physical Exam Vital Signs: Last Vital Signs Pulse 69 09/09/24 13:31 BP 122/70 09/09/24 13:31 Pulse Ox 97 09/09/24 13:31 Oxygen Delivery Method Room Air 09/09/24 13:31 BMI result Body Mass Index 23.1 Const General: healthy appearing, comfortable, no acute distress, alert and awake Orientation/consciousness: patient oriented x3 HEENT Head: Yes normal to inspection General nose exam: No nasal polyps present and No nasal discharge present Face and sinus: Yes sinuses nontender Mouth: oropharynx normal Throat: Yes posterior oropharynx normal Eyes General: appearance normal, both eyes and all related structures Neck Neck: Yes normal visual inspection, Yes no lymphadenopathy, Yes trachea midline and Yes no JVD Thyroid: Thyroid normal Chest Chest palpation & inspection: normal inspection of the chest, normal palpation of entire chest wall and no tenderness Resp Other: Percussion note is resonant . Breath sounds are moderately distant with prolonged expiratory phase. No wheezes or crepitations are heard. Cardio Palpation: normal PMI Rate: regular rate Rhythm: regular rhythm Heart sounds: no gallops and no murmurs Peripheral pulses: Peripheral pulses 2+ throughout GI Palpation (GI): Soft to palpation, nontender, No hepatosplenomegaly present and no masses Auscultation: normal bowel sounds Back/Spine/Pelvis Thoracic/Lumbar Spine: thoracic and lumbar spine normal to inspection Skin General skin exam: no rashes or lesions noted Neuro General: patient oriented x3 and no focal motor deficits Cranial nerves: Yes CN's II-XII intact bilaterally Extrem General: Yes normal to inspection, Yes no clubbing, cyanosis or edema and Yes no calf tenderness Psych Appearance: grossly normal and well kempt Speech and movement: Normal speech and movement present Assessment & Plan Assessment & Plan (1) COPD (chronic obstructive pulmonary disease): Comment: HE DOES HAVE CHRONIC OBSTRUCTIVE PULMONARY DISEASE, SEVERE . HIS CHRONIC OBSTRUCTIVE PULMONARY DISEASE IS GETTING WORSE. HE HAS INCREASED DYSPNEA ON EXERTION. SPIROMETRY IS CONSISTENT WITH VERY SEVERE OBSTRUCTIVE AIRWAY DISORDER. SYMPTOMATICALLY HE IS DOING MUCH BETTER SINCE HE QUIT SMOKING. Code(s): J44.9 - Chronic obstructive pulmonary disease, unspecified Category: Medical Plan: CONTINUE USING INCRUSE ELLIPTA 1 INHALATION DAILY IN THE MORNING. ADVAIR HFA 230-212 PUFFS B.I.D. ALBUTEROL HFA 2 PUFFS Q 4-6 HOURS P.R.N. (2) Ex-smoker: Comment: HE HAS LONGSTANDING HISTORY OF SMOKING BUT HAS QUIT, EXCEPT FOR 1 CIGARETTE ONCE IN A WHILE. HE HAS ALSO CUT DOWN THE USE OF WEED, TO ONLY ABOUT ONCE A DAY AND EVERY DAY . Code(s): Z87.891 - Personal history of nicotine dependence Category: Social Hx Plan: COMMENDED FOR QUITTING SMOKING. AND AGAIN REINFORCED THAT. HE SHOULD NOT GO BACK TO SMOKING AT ALL (3) Marijuana smoker: Comment: HAS PAST HISTORY OF SMOKING WEED ONCE OR TWICE A DAY . CURRENTLY HE HAS CUT IT DOWN TO NO MORE THAN ONCE A DAY. Code(s): F12.90 - Cannabis use, unspecified, uncomplicated Category: Medical Plan: AGAIN REINFORCED THAT THE BEST THING IS TO STOP SMOKING WEED ALTOGETHER, BUT OTHERWISE JUST DO NOT INCREASE FOR MORE THAN ONCE OR TWICE A DAY. Coding Level of Care Code Est Pt Level 3 (05047) Diagnoses COPD (chronic obstructive pulmonary disease) J44.9 Ex-smoker Z87.891 Marijuana smoker F12.90
== END 2024-09-09 13:45 | disposition home or self-care (01) ==
PROVIDERS: PCP Family Medicine; Visit Provider Internal Medicine
DX: J44.9 Chronic obstructive pulmonary disease, unspecified (principal); Z87.891 Personal history of nicotine dependence; F12.90 Cannabis use, unspecified, uncomplicated
CPT/HCPCS: 99213

== ENCOUNTER → 2024-09-09 13:27 | Outpatient (BNVA) | payer OTHER, SELFPAY | PROVIDERS: PCP Family Medicine; Visit Provider Internal Medicine | DX: J44.9 Chronic obstructive pulmonary disease, unspecified (principal); F12.90 Cannabis use, unspecified, uncomplicated; Z87.891 Personal history of nicotine dependence | CPT/HCPCS: 99212 ==

== ENCOUNTER 2024-11-27 13:29 | Outpatient (AMB) | payer OTHER, SELFPAY ==
[2024-11-27 13:50] VITALS: BP 120/80; PULSE 83; O2SAT 97; BMI 23.5
--- NOTE | 2024-11-27 13:50 | HO.NEPHOV_ITS ---
Vital Signs 11/27/24 13:50 Height 5 ft 5 in Weight 141 lb BMI 23.5 BP 120/80 Blood Pressure Location Rt brachial Position Sitting Pulse 83 Pulse Source Pulse Oximeter Pulse Oximetry (%) 97 Oxygen Delivery Method Room Air Intake Visit Reasons: CKD-Conf Telecommunications Cable Jointer Required: No Accompanied by: Self / Same As Patient Allergies No Known Allergies Allergy (Verified 11/27/24 13:50) HPI Comments Details: Sean was seen in follow up of his mild CKD, history proteinuria and h ypertension. He is known to have biopsy-proven FSGS causing CKD. His renal functions have been stable. He has been on lisinopril which he takes regularly. He avoids nonsteroidal anti-inflammatories and maintain good hydration. His blood pressure has been at goal. He is not a diabetic. He has no pedal edema. He denies any froth or foam in the urine. He has been on Cozaar at point which he discontinued due to concern for erectile dysfunction. His microalbumin creatinine ratio in 2013 was 774 and in 2014 was 547 which had improved to 356 in 2018. He denies any active drug use but smokes marijuana. He denies any history of coronary artery disease, congestive heart failure, carotid stenosis, peripheral arterial disease, renal artery stenosis or having any autoimmune diseases. 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 Review of Systems Const All systems reviewed & are unremarkable except as noted in HPI and below Physical Exam Vital Signs: Last Vital Signs Pulse 83 11/27/24 13:50 BP 120/80 11/27/24 13:50 Pulse Ox 97 11/27/24 13:50 Oxygen Delivery Method Room Air 11/27/24 13:50 BMI result Body Mass Index 23.5 Const General: comfortable and no acute distress Orientation/consciousness: patient oriented x3 HEENT Head: Yes normocephalic Mouth: Normal oral and palatal mucosa present Eyes EOM: EOMs intact bilaterally Neck Neck: Yes supple Resp Auscultation: clear to auscultation bilaterally Cardio Jugular venous distension: no JVD Rate: regular rate Heart sounds: Murmur heart sound present GI Palpation (GI): Soft to palpation Auscultation: normal bowel sounds Skin General skin exam: no rashes or lesions noted Neuro General: patient oriented x3 and moves all extremities Extrem General: Yes no pedal edema Results Reviewed Nephrology Results: Sodium 140 mmol/L (135-145) 08/25/24 Potassium 3.6 mmol/L (3.3-5.1) 08/25/24 Chloride 106 mmol/L (96-108) 08/25/24 Carbon Dioxide 28 mmol/L (22-29) 08/25/24 BUN 9 mg/dL (9-16) 08/25/24 Creatinine 1.12 mg/dL (0.5-1.4) 08/25/24 Calcium 9.0 mg/dL (8.4-10.2) 08/25/24 PTH Intact 87.4 pg/mL (8.7-77.1) H 05/30/24 Urine Creatinine 91.95 mg/dL 08/25/24 Protein/Creatinin Ratio 0.47 (<0.2) H 08/25/24 Assessment & Plan Assessment & Plan (1) CKD stage 3a, GFR 45-59 ml/min: Code(s): N18.31 - Chronic kidney disease, stage 3a Category: Medical (2) HTN (hypertension): Code(s): I10 - Essential (primary) hypertension Category: Medical Qualifiers: Hypertension type: primary hypertension Qualified Code(s): I10 - Essent ial (primary) hypertension (3) Proteinuria: Code(s): R80.9 - Proteinuria, unspecified Category: Medical Qualifiers: Proteinuria type: other Qualified Code(s): R80.8 - Other proteinuria (4) FSGS (focal segmental glomerulosclerosis): Code(s): N05.1 - Unspecified nephritic syndrome with focal and segmental glomerular lesions Category: Medical Plan He has mild CKD, history proteinuria and hypertension. He is known to have biopsy-proven FSGS causing CKD. His renal functions have been stable. He can continue lisinopril 20 mg daily at the last visit. I plan to maximize the dose of it and add SGLT2i with time. He avoids nonsteroidal anti-inflammatories and maintain good hydration. His blood pressure has been at goal. He is not a diabetic. He has been on Cozaar at point which he discontinued due to concern for erectile dysfunction. His microalbumin creatinine ratio in 2014 was 774 and in 2015 was 547 which had improved to 356 in 2018. All these have been explained in detail. Answered all questions. Follow-up lab work ordered & follow-up appointment given Orders: Orders Electrolytes 4 Months I10 - Essential (primary) hypertension, N05.1 - Unspecified nephritic syndrome with focal and segmental glomerular lesions, N18.31 - Chronic kidney disease, stage 3a, R80.8 - Other proteinuria Protein Creatinine Ratio, Ur 4 Months I10 - Essential (primary) hypertension, N05.1 - Unspecified nephritic syndrome with focal and segmental glomerular lesions, N18.31 - Chronic kidney disease, stage 3a, R80.8 - Other proteinuria Creatinine 4 Months I10 - Essential (primary) hypertension, N05.1 - Unspecified nephritic syndrome with focal and segmental glomerular lesions, N18.31 - Chronic kidney disease, stage 3a, R80.8 - Other proteinuria Blood Urea Nitrogen 4 Months I10 - Essential (primary) hypertension, N05.1 - Unspecified nephritic syndrome with focal and segmental glomerular lesions, N18.31 - Chronic kidney disease, stage 3a, R80.8 - Other proteinuria Coding Level of Care Code Est Pt Level 4 (96791) Diagnoses CKD stage 3a, GFR 45-59 ml/min N18.31 Primary hypertension I10 Hypertension type: primary hypertension Other proteinuria R80.8 Proteinuria type: other FSGS (focal segmental glomerulosclerosis) N05.1
--- OUTSIDE RECORDS SUMMARY | 2024-11-27 15:05 | XMS_ITS | Encounter Summary ---
Author Organization [employer] Address [address] [place] [address] Care Team Providers Care Unit Trust Manager Name Role Phone Sisi Hyatt MD Primary Care Provider [phone]- [phone] Cinda Johnson PharmD Unavailable Fabio Florian Unavailable Jose M King MD Unavailable Encounter Details Date Type Department Care Team (Late st Contact Info) Description 11/25/2024 Telephone [facility] [address] [place], [place] [phone] Sisi Hyatt MD [address] [place], [place] [phone] Social History Tobacco Use Types Packs/Day Years Used Date Smoking Tobacco: Former Cigarettes Smokeless Tobacco: Never Depression Answer Date Recorded Patient Health Questionnaire-9 Score 20 11/25/2024 Patient Health Questionnaire-9 Score 20 11/25/2024 Last PHQ-9: Questionnaire Data Not on file 0 11/25/2024 Housing Stability Answer Date Recorded What is your housing situation today? I do not have housing (Staying with others, in a hotel, in a halfway, living outside on the street, on a beach, in a car, or in a park 05/12/[address] you li ve. Do you have problems with any of the following? None of the above 05/12/2024 Food Insecurity Answer Date Recorded Within the past 12 months, y ou worried that your food would run out before you got money to buy more: Sometimes True 2023 Within the past 12 months,th e food you bought just didn't last and you didn't have enough money to get more: Sometimes True 05/12/2024 Transportation Answer Date Recorded In the past 12 months, has l ack of transportation kept you from medical appts, meetings, work or from getting things needed for daily living? No 05/12/2024 Utilities Answer Date Recorded In the past 12 months, has t he electric, gas, oil or water company threatened to shut off services in your home? No 05/12/2024 Depression Answer Date Recorded Patient Health Questionnaire-2 Score 5 11/25/2024 Internet Access Answer Date Recorded Internet Access Q1 No 05/22/2024 Internet Access Q2 I do not want or need it 04/25 Sex and Gender Information Value Date Recorded Sex Assigned at Male 07/23/2022 10:16 AM EDT Legal Sex Male 10:16 AM EDT Gender Identity Male 07/23/2022 10:16 AM EDT Sexual Orientation Choose not to disclose 2021 10:16 AM EDT documented as of this encounter Miscellaneous Notes * Telephone Encounter - Mariya Bennett RN - 11/25/2024 3:42 PM EST Pulmonary Rehab Referral placed by PCP faxed to [facility] at [phone]. Also includedin the fax were the pt [place] [facility] and any office notes associated with them * Telephone Encounter - Mariya Bennett RN - 11/25/2024 3:03 PM EST TC placed to [facility] to inquire on the steps and information needed to place a referral for pulmonary rehabilitation services. Per the glass engraver the PCP would need to initially refer the pt for either a PFT test or walk test. The referral must state that the pt needs at least a PFT.Once the pt has had one of these two tests the pt will then be scheduled for the appropriate interve ntions with pulmonary rehab. The fax number for [facility] in which the referral will need to be sentis [phone] * Telephone Encounter - Sisi Hyatt MD - 11/25/2024 2:17 PM EST Can you please ask [facility] pulmonary if they accept pts for pulmonary rehab and if so how to refer patients. documented in this encounter Plan of Treatment Upcoming Encounters Date Type Department Care Team (Late st Contact Info) Description 03/04/2025 10:30 AM EDT Office Visit [facility] [address] [place] [address] Sisi Hyatt MD [address] [place] [address] documented as of this encounter Visit Diagnoses Not on filedocumented in this encounter Additional Health Concerns Assessment Noted Time PHQ-9 Depression Total Score: 20 025 2:44 PM EST documented as of this encounter Care Teams Unit Trust Manager Relationship Specialty Start Date End Date Sisi Hyatt MD [address] [place] [address] PCP - General Family Medicine 09/23/18 Cinda Johnson PharmD [address] [place] [phone] Pharmacist Internal Medicine 06/08/24 Fabio Florian [address] [place] [address] Pulmonary Disease 08/12/24 Jose M King MD [address] [place] [address] Nephrology 09/02/24 documented as of this encounter
--- OUTSIDE RECORDS SUMMARY | 2024-11-27 15:05 | XMS_ITS | Encounter Summary ---
Author Organization [facility] Address [address] [facility] 7t [place] [address] Care Team Providers Care Medical Record Assistant Name Role Phone Sisi Hyatt MD Primary Care Provider +1- [phone] Cinda Johnson PharmD Unavailable Fabio Florian Unavailable Jose M King MD Unavailable Encounter Details Date Type Department Care Team (Late st Contact Info) Description 03/13/2023 Orders Only [facility] [address] [place] [address] Sisi Hyatt MD [address] [place], [place] [phone] Social History Tobacco Use Types Packs/Day Years Used Date Smoking Tobacco: Never Smokeless Tobacco: Never Depression Answer Date Recorded Patient Health Questionnaire-9 Score 0 03/06/2023 Depression Answer Date Recorded Patient Health Questionnaire-2 Score 0 03/06/2023 Sex and Gender Information Value Date Recorded Sex Assigned at Male 07/23/2022 10:16 AM EDT Legal Sex Male 10:16 AM EDT Gender Identity Male 07/23/2022 10:16 AM EDT Sexual Orientation Choose not to disclose 2021 10:16 AM EDT COVID-19 Exposure Response Date Recorded In the last 10 days, have yo u been in contact with someone who was confirmed or suspected to have Coronavirus/COVID-19? No / Unsure 03/06/2023 1:54 PM EDT documented as of this encounter Plan of Treatment Upcoming Encounters Date Type Department Care Team (Late st Contact Info) Description 03/04/2025 10:30 AM EDT Office Visit [facility] [address] [facility] [place] [address] Sisi Hyatt MD [address] [facility] [place] [address] documented as of this encounter Procedures Procedure Name Priority Date/Time Associated Diagnosis Comments HEPATITIS C ANTIBODY REFLEX Routine 04/19/2023 9:01 AM EDT HIV ANTIBODY/ANTIGEN ([place] [facility]) Routine 04/19/2023 9:01 AM EDT T4, FREE Routine 04/19/2023 9:01 AM EDT documented in this encounter Results * HIV Ab/Ag ([place] [facility]) (04/19/2023 9:01 AM EDT) HIV AB/AG Nonreactive Nonreactive [facility] Comment:HIV-1 p24 Ag and/or HIV-1/HIV-2 Ab not detected.A test result that is nonreactive does not exclude thepossibility of exposure to or infection with HIV-1 and/orHIV-2. Nonreactive results in this assay for individualswith prior exposure to HIV-1 and/or HIV-2 may be due toantigen and antibody levels that are below the limit ofdetection of this assay.[employer] HIV Ag/Ab Combo assay result andsupplemental assay results should be interpreted inconjunction with the patient's clinical presentation,history and other laboratory results. If the results areinconsistent with clinical evidence, additional testing issuggested to confirm the result. 04/19/2023 9:01 AM EDT 04/19/2023 11:20 AM EDT us Sisi Hyatt MD LAB BLOOD ORDERABLES Final Result [facility] [address] [place] [address] [phone] * Hepatitis C Antibody Reflex (04/19/2023 9:01 AM EDT) Hepatitis C Antibody Nonreactive Nonreactive [facility] Comment:Antibodies to HCV no t detected; does not exclude early acuteHCV infection. 04/19/2023 9:01 AM EDT 04/19/2023 11:20 AM EDT Sisi Hyatt MD LAB BLOOD ORDERABLES Final Result Performing Organization Address City/[facility]/ZIP Co de Phone Number [facility] [address] [place] [address] [phone] * T4, Free (04/19/2023 9:01 AM EDT) Pathologist [facility] Free T4 (Free Thyroxine) 1.05 0.71 - 1.85 ng/dL [facility] 04/19/2023 9:01 AM EDT 04/19/2023 11:20 AM EDT Sisi Hyatt MD LAB BLOOD ORDERABLES Final Result Performing Organization Address [facility] de Phone Number [facility] [address] [place] [phone] documented in this encounter Visit Diagnoses Not on filedocumented in this encounter Additional Health Concerns Assessment Noted Time PHQ-9 Depression Total Score: 0 03/06/20 23 2:17 PM EDT documented as of this encounter Care Teams Medical Record Assistant Relationship Specialty Start Date End Date Sisi Hyatt MD [address] [place] [address] PCP - General Family Medicine 09/23/18 Cinda Johnson, JoelD [address] [place] [phone] Pharmacist Internal Medicine 06/08/24 Fabio Florian [address] [place] [address] Pulmonary Disease 08/12/24 Jose M King MD [address] [place] [address] Nephrology 09/02/24 documented as of this encounter
--- OUTSIDE RECORDS SUMMARY | 2024-11-27 15:05 | XMS_ITS | Encounter Summary ---
Author Organization [employer] Address [address] [facility] 7t [place] [address] Care Team Providers Care Senior Accountant Cpa Name Role Phone Sisi Hyatt MD Primary Care Provider +1- [phone] Cinda Johnson PharmD Unavailable +1- [phone] Fabio Florian Unavailable Jose M King MD Unavailable Encounter Details Date Type Department Care Team (Latest Contact Info) Description 11/24/2024 Travel Social History Tobacco Use Types Packs/Day Years [...] with others, in a hotel, in a retirement, living outside on the street, on a [...] AM EDT documented as of this encounter Plan of Treatment Upcoming Encounters Date Type Department Care Team (Late st Contact Info) Description 03/04/2025 10:30 AM EDT Office Visit [facility] [address] [place] [phone] Sisi Hyatt MD [address] [place] [phone] documented as of this encounter Visit Diagnoses Not on filedocumented in this encounter Additional Health Concerns Assessment Noted Time PHQ-9 Depression Total Score: 22 024 10:35 AM EDT documented as of this encounter Care Teams Senior Accountant Cpa Relationship Specialty Start Date End Date Sisi Hyatt MD [address] [place] [address] PCP - General Family Medicine 09/23/18 Cinda Johnson, JoelD [address] [place] [address] Pharmacist Internal Medicine 06/08/24 Fabio Florian [address] [place] [address] Pulmonary Disease 08/12/24 Jose M King MD [address] [place] [address] Nephrology 09/02/24 documented as of this encounter
--- OUTSIDE RECORDS SUMMARY | 2024-11-27 15:05 | XMS_ITS | Encounter Summary ---
Author Organization [employer] Address [address] [facility] 7t [place] [address] Care Team Providers Care Centralized Traffic Control Operator Name Role Phone Sisi Hyatt MD Primary Care Provider +1- [phone] Cinda Johnson PharmD Unavailable Fabio Florian Unavailable Jose M King MD Unavailable Reason for Visit * Reason Comments Care Coordination CHW outreach for SDO H housing search-referral completed Encounter Details Date Type Department Care Team (Latest Contact Info) Description 11/17/2024 Patient Outreach [facility] [address] [place], [place] [phone] Sisi Hyatt MD [address] [place] [address] Care Coordination (CHW outreach for SDOH housing search-referral completed ) Social History Tobacco Use Types Packs/Day Years Used Date Smoking Tobacco: Former Cigarettes Smokeless Tobacco: Never Depression Answer Date Recorded Patient Health Questionnaire-9 Score 22 06/08/2024 Patient Health Questionnaire-9 Score 22 06/08/2024 Last PHQ-9: Questionnaire Data Not on file 0 06/08/2024 Housing Stability Answer Date Recorded What is your housing situation today? I do not have housing (Staying with others, in a hotel, in a nursing home, living outside on the street, on a [...] Answer Date Recorded Patient Health Questionnaire-2 Score 6 06/08/2024 Internet Access Answer Date Recorded Internet Access [...] AM EDT documented as of this encounter Progress Notes * Smith Montalvo - 11/17/2024 11:10 AM EST CHW Smith Montalvo, placed outbound call to patient for assistance with SDOH as a referral was received by the provider. Patient's name and were confirmed. Patient screened positive for the following SDOH housing insecurities. CHW referred patient to list of housing and applications mail out to address on file. Patient verbalizes understanding, and able to agree to follow up with housing search and call. Patient educated on extended clinic hours on Mondays through Wednesdays, and Walk-In Urgent Care Located in [facility] of [facility]. Patient provided with after-hours line for [facility], , which offer night time triage service and option to transfer to sharepoint application developer provider if needed. documented in this encounter Plan of Treatment Upcoming Encounters Date Type Department Care Team (Late st Contact Info) Description 03/04/2025 10:30 AM EDT Office Visit [facility] [address] [place] [address] Sisi Hyatt MD [address] [place] [address] documented as of this encounter Visit Diagnoses Not on filedocumented in this encounter Additional Health Concerns Assessment Noted Time PHQ-9 Depression Total Score: 22 024 10:35 AM EDT documented as of this encounter Care Teams Centralized Traffic Control Operator Relationship Specialty Start Date End Date Sisi Hyatt MD [address] [place] [address] PCP - General Family Medicine 09/23/18 Cinda Johnson, JoelD [address] [place] [address] Pharmacist Internal Medicine 06/08/24 Fabio Florian [address] [place] [address] Pulmonary Disease 08/12/24 Jose M King MD [address] [place] [address] Nephrology 09/02/24 documented as of this encounter
--- OUTSIDE RECORDS SUMMARY | 2024-11-27 15:05 | XMS_ITS | Encounter Summary ---
Author Organization [employer] Address [address] [facility] 7t [place] [address] Care Team Providers Care Senior Product Analyst Name Role Phone Sisi Hyatt MD Primary Care Provider +1- [phone] Cinda Johnson PharmD Unavailable +1- [phone] Fabio Florian Unavailable Jose M King MD Unavailable Encounter Details Date Type Department Care Team (Latest Contact Info) Description 11/25/2024 Travel Social History Tobacco Use Types Packs/Day [...] with others, in a hotel, in a senior care, living outside on the street, on a [...] Description 03/04/2025 10:30 AM EDT Office Visit [facility] [address] [place] [address] Sisi Hyatt MD [address] [place] [address] documented as of this encounter Visit Diagnoses Not on filedocumented in this encounter Additional Health Concerns Assessment Noted Time PHQ-9 Depression Total Score: 20 025 2:44 PM EST documented as of this encounter Care Teams Senior Product Analyst Relationship Specialty Start Date End Date Sisi Hyatt MD [address] [place] [phone] PCP - General Family Medicine 09/23/18 Cinda Johnson PharmD [address] [place] [phone] Pharmacist Internal Medicine 06/08/24 Fabio Florian [address] [place] [address] Pulmonary Disease 08/12/24 Jose M King MD [address] [place] [address] Nephrology 09/02/24 documented as of this encounter
--- OUTSIDE RECORDS SUMMARY | 2024-11-27 15:05 | XMS_ITS | Encounter Summary ---
Author Organization [employer] Address [address] [facility] 7t [place] [address] Care Team Providers Care Lead Recoverer Name Role Phone Sisi Hyatt MD Primary Care Provider +1- [phone] Cinda Johnson PharmD Unavailable Fabio Florian Unavailable Jose M King MD Unavailable Reason for Visit * Reason Comments Pre-visit Planning SDOH Screening posit brandy and Tobacco screening negative Encounter Details Date Type Department Care Team (Late st Contact Info) Description 11/17/2024 Patient Outreach [facility] [address] [place], [place] [phone] Sisi Hyatt MD [address] [place], [place] [phone] Pre-visit Planning (SDOH Screening positive and Tobacco screening negative) Social History Tobacco Use Types Packs/Day Years Used Date Smoking Tobacco: Former Cigarettes Smokeless Tobacco: Never Depression Answer Date Recorded Patient Health Questionnaire-9 Score 06/08/2024 Patient Health Questionnaire-9 Score 22 06/08/2024 Last PHQ-9: Questionnaire Data Not on file 0 06/08/2024 Housing Stability Answer Date Recorded What is your housing situation today? I do not have housing (Staying with others, in a hotel, in a penitentiary, living outside on the street, on a [...] the past 12 months, has t he [employer] gas, oil or water company threatened to [...] as of this encounter Progress Notes * Camille New - 11/17/2024 10:54 AM EST RONNY Pang placed successful outbound call to patient for pre-visit planning. Patient name and confirmed. Patient confirms appt date and time, and has transportation arrangements. Biggest concern for appointment at this time is will discuss it with PCP in person. Patient advised to bring to appointment a photo id and insurance card. Appropriate screenings completed in anticipation of appointment. SDOH positive. Patient looking for assistance with Housing(Living with his sister for now), and Food insecurities: Sometimes. Referral will be placed. documented in this encounter Plan of Treatment Upcoming Encounters Date Type Department Care Team (Late st Contact Info) Description 03/04/2025 10:30 AM EDT Office Visit [facility] [address] [place] [address] Sisi Hyatt MD [address] [place] [address] documented as of this encounter Visit Diagnoses Not on filedocumented in this encounter Additional Health Concerns Assessment Noted Time PHQ-9 Depression Total Score: 22 024 10:35 AM EDT documented as of this encounter Care Teams Lead Recoverer Relationship Specialty Start Date End Date Sisi Hyatt MD [address] [place] [address] PCP - General Family Medicine 09/23/18 Cinda Johnson PharmD [address] [place] [address] Pharmacist Internal Medicine 06/08/24 Fabio Florian [address] [place] [address] Pulmonary Disease 08/12/24 Jose M King MD [address] [place] [address] Nephrology 09/02/24 documented as of this encounter
--- OUTSIDE RECORDS SUMMARY | 2024-11-27 15:05 | XMS_ITS | Clinical Summary ---
Author Organization [employer] Address [address] [place] [address] Care Team Providers Care Milk Handler Name Role Phone Sisi Hyatt MD Primary Care Provider [phone] Cinda Johnson PharmD Unavailable Fabio Florian Unavailable Jose M King MD Unavailable Allergies No known active allergies Medications * This document contains information received from the source organization and may not represent a complete record from that organization. albuterol (Ventolin HFA) 108 (90 Base) MCG/ACT inhalerIndication s:Chronic obstructive pulmonary disease, unspecified COPD type (CMS/HCC) INHALE 2 PUFFS BY MOUTH EVERY 4 HOURS NEEDED FOR WHEEZING OR SHORTNESS OF BREATH 18 g 11 4 Active Umeclidinium Fruita (Incruse Ellipta) 62.5 MCG/ACT aerosol powderIndications :Chronic obstructive pulmonary disease, unspecified COPD type (CMS/HCC) Inhale 62.5 mcg Once per day. 1 each 11 4 Active Blood Pressure kitIndications:Es sential hypertension Use 3 times a week, dx htn 1 kit 4 Active Advair HFA 230-21 MCG/ACT inhalerIndication s:Chronic obstructive pulmonary disease, unspecified COPD type (CMS/HCC) INHALE 2 PUFFS BY MOUTH TWICE DAILY RINSE MOUTH AFTER USING. 36 g 3 4 Active levothyroxine (Synthroid, Levoxyl) 175 MCG tabletIndications :Hypothyroidism, unspecified type TAKE 1 TABLET BY MOUTH EVERY DAY 90 tablet 1 12/18/202 4 Active lisinopril 20 MG tabletIndications :Essential hypertension Take by mouth Once per day. Active Active Problems Patient Care Coordination No te Formatting of this note migh t be different from the original. [facility] Interior Decorator: Angela, member services number [phone], provider services line, , option 4 Pattern Developer Agency: closed Problem Noted Date Diagnosed Date Cardiac risk counseling 08/18/2024 Overview (11/25/2024): Calculated 11/25/24: Borderline risk The 10-year ASCVD risk score (Aditya MAYER, et al., 2019) is: 8.5% Values used to calculate the score: Age: 59 years Sex: Male Is Non- : No Diabetic: No Tobacco smoker: No Systolic Blood Pressure: 110 mmHg Is BP treated: Yes HDL Cholesterol: 48 mg/dL Total Cholesterol: 195 mg/dL Lab Results Component Value Date LDLCHOLCAL 120 (H) 08/25/2024 LDLCHOLCAL 111 (H) 05/30/2024 LDLCHOLCAL 118 04/19/2023 -Atherosclerotic Cardiovascular Disease (ASCVD) Risk Calculator is intended for a person age 40-79 without ASCVD and with LDL-cholesterol < 190/mg/dl to assesses the chances of developing heart disease over the next 10 years. -Tobacco cessation: not applicable -Statin therapy:N/A -Importance of moderate physical activity and nutrition interventions discussed. -Currently hesitant to start statin, will follow-up in 3 months. Assessment & Plan (11/25/2024 2:29 PM EST): Calculated 11/25/24: Borderline risk The 10-year ASCVD risk score (Aditya MAYER, et al., 2019) is: 8.5% Values used to calculate the score: Age: 59 years Sex: Male Is Non- : No Diabetic: No Tobacco smoker: No Systolic Blood Pressure: 110 mmHg Is BP treated: Yes HDL Cholesterol: 48 mg/dL Total Cholesterol: 195 mg/dL Lab Results Component Value Date LDLCHOLCAL 120 (H) 08/25/2024 LDLCHOLCAL 111 (H) 05/30/2024 LDLCHOLCAL 118 04/19/2023 -Atherosclerotic Cardiovascular Disease (ASCVD) Risk Calculator is intended for a person age 40-79 without ASCVD and with LDL-cholesterol < 190/mg/dl to assesses the chances of developing heart disease over the next 10 years. -Tobacco cessation: not applicable -Statin therapy: N/A -Importance of moderate physical activity and nutrition interventions discussed. -Currently hesitant to start statin, will follow-up in 3 months. Ex-smoker 05/27/2024 Homelessness 05/27/2024 Overview (11/25/2024): -SDOH referral placed 05/27/24. -still having housing proles. Living with his sister currently. -re-referred to [facility] 11/25/24 Assessment & Plan (11/25/2024 2:30 PM EST): -SDOH referral placed 05/27/24. -still having housing proles. Living with his sister currently. -re-referred to [facility] 11/25/24 Assessment & Plan (06/08/2024 10:49 AM EDT): During IBH Consult Sean presenting with depressed mood, hopelessness, irritable mood, loss of interests/pleasure , sense of isolation/loneliness , isolating, change in appetite or weight reduce appetite, changes in sleep difficulty falling asleep, psychomotor retardation, fatigue/loss of energy, worthlessness, inappropriate/excessive guilt , difficulty concentrating; for a period of 18+ mo, for most or all symptoms in the context of illness or family illness and housing. Sean endorsed depressive sxs associated with worsening of his medical condition (COPD/lung disease) and lack of housing. Pt applied to housing about 7 years ago and is still on wait list. His depression is active, pt is aware of importance of using coping mechanisms. We discussed plan to implement when symptoms increase. His santana and spirituality is strong and identified as strength. clinician engaged pt with active/reflective listening. Reviewed and assessed for risk, current stressors and protective factors. Pt is connected with [facility] / Care Teams. Recommendations made around reaching out to coordinator with [facility] to assist w housing problem. Pt declined referral with for SDOH and OP therapy. clinician will follow-up during next medical appointment to assess progress and offer additional support if needed. Assessment & Plan (05/27/2024 11:18 AM EDT): -SDOH referral placed 05/27/24 Other specified health status 03/06/2023 Overview (05/27/2024): -Next physical exam due 05/27/25 -Eye referral to [facility] done 03/06/2023. -Dental strongly encouraged. -Health care proxy given and filed 05/27/24 Assessment & Plan (05/27/2024 10:57 AM EDT): -Next physical exam due 05/27/25 -Eye referral to [facility] done 03/06/2023. -Dental strongly encouraged. -Health care proxy given and filed 05/27/24 Assessment & Plan (03/06/2023 3:07 PM EDT): Next PE due 03/06/2024. -Eye referral done 03/06/2023. -Dental strongly encouraged. Chronic obstructive lung disease 03/20/2022 Overview (11/25/2024): - PFTs 03/01/14 revealed severe obstructive airway disorder with partial reversibility with bronchodilator therapy - he is tobacco free x >1 year! - Continue Advair BID and Spiriva once daily started 03/06/2023 - O2 with ambulation 94%, baseline 95%. -Note from pulmonology with Dr. Florian 08/11/24 reviewed, no changes -continue Incruse Ellipta daily -continue Advair bid -contnue albuterol prn -Saw Agricultural Research Technician Oct 2024, will request note. Today, 11/25/24, O2 SAT at 98%, discussed taking Advair and Incruse Ellipta everyday with albuterol for breakthrough. Walking O2 SAT dropped to 96%. Will also call Pulmonology to enquire about Pulmonology rehab therapy. Assessment & Plan (11/25/2024 2:25 PM EST): - PFTs 03/01/14 revealed severe obstructive airway disorder with partial reversibility with bronchodilator therapy - he is tobacco free x >1 year! - Continue Advair BID and Spiriva once daily started 03/06/2023 - O2 with ambulation 94%, baseline 95%. -Note from pulmonology with Dr. Florian 08/11/24 reviewed, no changes -continue Incruse Ellipta daily -continue Advair bid -contnue albuterol prn -Saw Agricultural Research Technician Oct 2024, will request note. Today, 11/25/24, O2 SAT at 98%, discussed taking Advair and Incruse Ellipta everyday with albuterol for breakthrough. Walking O2 SAT dropped to 96%. Will also call Pulmonology to enquire about Pulmonology rehab therapy. Assessment & Plan (05/27/2024 11:03 AM EDT): - PFTs 03/01/14 revealed severe obstructive airway disorder with partial reversibility with bronchodilator therapy - he is tobacco free x >1 year! - Pt had pulmonology appointment 02/13/[address] Florian - Continue Advair BID and Spiriva once daily started 03/06/2023 - O2 with ambulation 94%, baseline 95%. -Has appt with specialist this year. Assessment & Plan (03/06/2023 3:07 PM EDT): - PFTs 03/01/14 revealed severe obstructive airway disorder with partial reversibility with bronchodilator therapy - he is tobacco free x 1 year! - Pt had pulmonology appointment 08/21/[address] Florian No changes in meds - Spiriva once daily started 03/06/2023. - O2 with ambulation 94%, baseline 95%. Tubular adenoma 03/20/2022 Overview (01/15/2024): -Tubular adenoma noted on colonoscopy 05/04/[address] Cortes. He saw her on 10/2018 but did not have the colonoscopy yet, he needed clearance from pulmonology. We attempted to call GI. -Repeat with Dr. Bria Holbrook 01/15/24 with 7 polyps inc tubular adenoma, repeat 3 years Assessment & Plan (03/06/2023 3:08 PM EDT): -Tubular adenoma noted on colonoscopy 05/04/[address] Cortes. He saw her on 10/2018 but did not have the colonoscopy yet, he needed clearance from pulmonology. We attempted to call GI. -Referral to GI done 03/06/2023. 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 He has been on lisinopril which he takes regularly. He avoids nonsteroidal anti-inflammatories and maintain good hydration. His blood pressure has been at goal. He is not a diabetic. He has been on Cozaar at point which he discontinued due to concern for erectile dysfunction. His microalbumin creatinine ratio in 2013 was 774 and in 2014 was 547 which had improved to 356 in 2018. Pt saw Dr. Galo 04/2018. He may need repeat biopsy in the future. - Pt self d/c Cozaar for concern of ED - MA/Cr ration 01/2014 774 ug/mgcr and 547.9 ug/mgcr 03/2015 - 356 in 10/2017 improved from 746ug/mgcr in 10/2017 -Seen by Dr. Alvarez 02/11/23 -seen by Dr. Kilgore 05/12/24 I ordered 24 hour urine for protein and creatinine clearance along with the blood work. I would not make any medication changes today. Seen again 06/04/24 continue lisinopril 20mg -Note from Dr. Salguero 09/02/24 His renal functions have been stable. He has been on lisinopril which he takes regularly which I increased to 20 mg daily at the last visit. I plan to maximize the dose of it and add SGLT2i with time. He avoids nonsteroidal anti-inflammatories and maintain good hydration. His blood pressure has been at goal. He is not a diabetic. He has been on Cozaar at point which he discontinued due to concern for erectile dysfunction. His microalbumin creatinine ratio in 2013 was 774 and in 2014 was 547 which had improved to 356 in 2018. All these have been explained in detail. Assessment & Plan (05/27/2024 11:07 AM EDT): -mild CKD, history proteinuria and hypertension -known to have biopsy-proven FSGS causing CKD - renal functions have been stable. He has been on lisinopril which he takes regularly. He avoids nonsteroidal anti-inflammatories and maintain good hydration. His blood pressure has been at goal. He is not a diabetic. He has been on Cozaar at point which he discontinued due to concern for erectile dysfunction. His microalbumin creatinine ratio in 2013 was 774 and in 2014 was 547 which had improved to 356 in 2018. Pt saw Dr. Galo 04/2018. He may need repeat biopsy in the future. - Pt self d/c Cozaar for concern of ED - lisinopril decreased from 20mg daily to 10mg daily 04/[address] Galo 04/2015. Pt tolerating well - MA/Cr ration 01/2014 774 ug/mgcr and 547.9 ug/mgcr 03/2015 - 356 in 10/2017 improved from 746ug/mgcr in 10/2017 -Seen by Dr. Alvarez 02/11/23 -seen by Dr. Kilgore 05/12/24 I ordered 24 hour urine for protein and creatinine clearance along with the blood work. I would not make any medication changes today. Assessment & Plan (03/06/2023 2:47 PM EDT): Pt saw Dr. Galo 04/2018. He may need repeat biopsy in the future. - Pt self d/c Cozaar for concern of ED - lisinopril decreased from 20mg daily to 10mg daily 04/[address] Galo 04/2015. Pt tolerating well - MA/Cr ration 01/2014 774 ug/mgcr and 547.9 ug/mgcr 03/2015 - 356 in 10/2017 improved from 746ug/mgcr in 10/2017 -Seen by Dr. Alvarze 02/11/23 Depression, recurrent 01/28/2014 Overview (11/25/2024): -PHQ9 was positive 05/27/24 and 11/25/24. -not taking any anti-depressant at this time. -referred to [facility] 11/25/24 Assessment & Plan (11/25/2024 2:29 PM EST): -PHQ9 was positive 05/27/24 and 11/25/24. -not taking any anti-depressant at this time. -referred to [facility] 11/25/24 Assessment & Plan (06/08/2024 10:48 AM EDT): During IBH Consult Sean presenting with depressed mood, hopelessness, irritable mood, loss of interests/pleasure , sense of isolation/loneliness , isolating, change in appetite or weight reduce appetite, changes in sleep difficulty falling asleep, psychomotor retardation, fatigue/loss of energy, worthlessness, inappropriate/excessive guilt , difficulty concentrating; for a period of 18+ mo, for most or all symptoms in the context of illness or family illness and housing. Sean endorsed depressive sxs associated with worsening of his medical condition (COPD/lung disease) and lack of housing. Pt applied to housing about 7 years ago and is still on wait list. His depression is active, pt is aware of importance of using coping mechanisms. We discussed plan to implement when symptoms increase. His santana and spirituality is strong and identified as strength. clinician engaged pt with active/reflective listening. Reviewed and assessed for risk, current stressors and protective factors. Pt is connected with [facility] / Care Teams. Recommendations made around reaching out to coordinator with [facility] to assist w housing problem. Pt declined referral with for SDOH and OP therapy. clinician will follow-up during next medical appointment to assess progress and offer additional support if needed. Assessment & Plan (05/27/2024 11:12 AM EDT): -PHQ9 was positive 05/27/24. -not taking any anti-depressant at this time. Hypothyroidism 01/28/2014 Overview (11/25/2024): Lab Results Component Value Date TSH 0.73 05/30/2024 TSH 10.19 (H) 04/19/2023 -reports he has been taking his Levothyroxine. Assessment & Plan (11/25/2024 2:25 PM EST): Lab Results Component Value Date TSH 0.73 05/30/2024 TSH 10.19 (H) 04/19/2023 -reports he has been taking his Levothyroxine. Essential hypertension 01/28/2014 Overview (11/25/2024): -Blood pressure is at goal -Continue lifestyle modifications -follows with [facility] with our [facility] -given BP monitor to monitor at home. -Amlodipine 5mg started at last PCP visit 05/27/24 however patient seen in [facility] after and denies having started medication yet; was seen by nephrology team 06/03/24 and lisinopril increased to 20mg once daily without inclusion of amlodipine in plan. [facility] instructed patient to HOLD amlodipine and start lisinopril 20mg once daily Assessment & Plan (11/25/2024 2:23 PM EST): -Blood pressure is at goal -Continue lifestyle modifications -follows with [facility] with our [facility] -given BP monitor to monitor at home. -Amlodipine 5mg started at last PCP visit 05/27/24 however patient seen in [facility] after and denies having started medication yet; was seen by nephrology team 06/03/24 and lisinopril increased to 20mg once daily without inclusion of amlodipine in plan. [facility] instructed patient to HOLD amlodipine and start lisinopril 20mg once daily Assessment & Plan (05/27/2024 11:15 AM EDT): -Blood pressure is not at goal -Continue lifestyle modifications -Continue Lisinopril 10mg daily. -Start Amlodipine 5 MG -referred to [facility] with our [facility] -given BP monitor to monitor at home. Assessment & Plan (03/06/2023 2:47 PM EDT): -Blood pressure is at goal -Continue lifestyle modifications -Continue Lisinopril 10mg daily. Resolved Problems Problem Noted Date Diagnosed Date Resolved Date Personal history of colonic polyps 05/27/2024 10/07/2024 Osteomyelitis of finger of right hand 03/06/2023 10/30/2023 Overview (03/06/2023): Right thumb. Assessment & Plan (03/06/2023 2:46 PM EDT): Right thumb. Tobacco dependence syndrome 07/15/2014 10/07/2024 Proteinuria 01/28/2014 10/07/2024 Overview (05/27/2024): -ordered albumin urine w/ creatinine 05/27/24 Assessment & Plan (05/27/2024 11:06 AM EDT): -ordered albumin urine w/ creatinine 05/27/24 Encounters Date Type Department Care Team Description 11/25/2024 2:00 PM EST Office Visit [address] [id number] Sisi Hyatt MD Essential hypertension (Primary Dx); Chronic obstructive pulmonary disease, unspecified COPD type (CMS/HCC); Hypothyroidism, unspecified type; Depression, recurrent (CMS/HCC); Homelessness; Cardiac risk counseling; Encounter for immunization; Positive depression screening 11/25/[address] [phone] Sisi Hyatt MD 11/25/2024 Travel 11/24/2024 Travel 11/17/2024 Patient Outreach [address] [address] Sisi Hyatt MD Care Coordination ([facility] outreach for SDOH housing search-referral completed ) 11/17/2024 Patient Outreach [address] [address] Sisi Hyatt MD Pre-visit Planning (SDOH Screening positive and Tobacco screening negative) 10/01/[address] [address] Mamie Pablo [place] November recall 09/08/[address] [address] Sisi Hyatt MD Hypothyroidism, unspecified type from Last 3 Months Immunizations Name Administration Dates Next Due Hep A, Adult 07/30/2019,06/29/2008 Hep B, adult 05/16/2007,01/14/2007,12/12/2006 Influenza injectable quadriv alent IIV4 with preservative 06/26/2018,09/13/2017,10/28/2015 Influenza injectable quadriv alent preservative free 07/30/2019,10/04/2016 Influenza, IIV3, injectable 07/15/2014 Influenza, Split (incl. steve fied surface antigen) 01/28/2014 Influenza, seasonal, injecta ble, preservative free 11/25/2024 Pneumococcal Conjugate PCV 20 03/06/2023 Pneumococcal Polysaccharide PPSV23 01/28/2014, TD (adult), 2 Lf tetanus tox oid, preservative free, adsorbed 10/16/2006 Tdap 05/27/2024,01/28/2014 Family History Medical History Relation Name Comments Cancer Father Diabetes Mother Relation Name Status Comments Father Mother Social History Tobacco Use Types Packs/Day Years Used Date Smoking Tobacco: Former Cigarettes Smokeless Tobacco: Never Tobacco Cessation:Counseling Given: Not Answered Depression Answer Date Recorded Patient Health Questionnaire-9 Score 20 11/25/2024 Patient Health Questionnaire-9 Score 20 11/25/2024 Last PHQ-9: Questionnaire Data Not on file 0 11/25/2024 Housing Stability Answer Date Recorded What is your housing situation today? I do not have housing (Staying with others, in a hotel, in a fci, living outside on the street, on a [...] not to disclose 2021 10:16 AM EDT Last Filed Vital Signs Vital Sign Reading Time Taken Comments Blood Pressure 130/90 11/25/2024 2:23 PM EST Pulse 84 11/25/2024 1:55 PM EST Temperature 37.2 ??C (98.9 ??F) 11/25/2024 1:55 PM ES T Respiratory Rate 20 11/25/2024 1:55 PM EST Oxygen Saturation 93% 11/25/2024 1:55 PM EST Inhaled Oxygen Concentration - - Weight 63.6 kg (140 lb 3.2 oz) 11/25/2024 1:55 P M EST Height 167.6 cm (5' 6 ) 11/25/2024 1:55 PM EST Body Mass Index 22.63 11/25/2024 1:55 PM EST Plan of Treatment Upcoming Encounters Date Type Department Care Team (Late st Contact Info) Description 03/04/2025 10:30 AM EDT Office Visit [facility] [address] [place] [address] Sisi Hyatt MD [address] [place] [address] Health Maintenance Due Date Last Done Comments CT Colonography 1963 FIT DNA/Cologuard 1963 FIT 1963 FOBT 1965 Sigmoidoscopy 1963 Zoster Vaccines (1 of 2) 2013 RSV Patients and Patients Aged 60 years or older (1 - Risk 60-74 years 1-dose series) 2023 Depression Monitoring (PHQ-9) 05/28/2025 11/25/2024, 11/25/2024 SDOH Screening 11/17/2025 11/17/2024 Alcohol/Substance Use Screening 11/25/2025 11/25/2024 COVID-19 Vaccine ( season) 2025 12/20/2021 Postponed from 05/24/2024 (Patient Refused) Depression Screening 11/25/2025 11/25/2024, 11/26/19 Tobacco Screening 11/25/2025 11/25/2024 Colonoscopy 01/13/2027 01/14/2024, 05/04/2014 Colorectal Cancer Screening 01/13/2027 Lipid Panel 08/25/2029 08/25/2024, 03/2024, 04/19/2023 DTaP/Tdap/Td Vaccines (3 - Td or Tdap) 05/27/2034 05/27/2024, 01/28/2014, 10/16/2006 Hepatitis B Vaccines Completed 05/16/2007, 01/14/2007, 12/12/2006 Hepatitis A Vaccines Aged Out 07/30/2019, 06/29/20 08 No longer eligible based on patient's age to complete this topic Pneumococcal Vaccine: 50+ Years Completed 03/06/2023, 01/28/2014, 10/31/2006 HIV Screening Completed 04/19/2023, 10/07/2018 Hepatitis C Screening Completed 04/19/2023 , 10/07/2018, 10/07/2018 Influenza Vaccine Completed 11/25/2024, , 06/26/2018, Additional history exists HIB Vaccines Aged Out No longer eligi ble based on patient's age to complete this topic HPV Vaccines Aged Out No longer eligi ble based on patient's age to complete this topic IPV Vaccines Aged Out No longer eligi ble based on patient's age to complete this topic Meningococcal Vaccine Aged Out No graeme ankush eligible based on patient's age to complete this topic RSV under 20 months Aged Out No longe r eligible based on patient's age to complete this topic Rotavirus Vaccines Aged Out No longer eligible based on patient's age to complete this topic Procedures Procedure Name Priority Date/Time Associated Diagnosis Comments LIPID PANEL, STANDARD Routine 08/25/2024 9:20 AM EST HM COLONOSCOPY Routine 01/14/2024 HEPATITIS C ANTIBODY REFLEX Routine 04/19/2023 9:01 AM EDT HIV ANTIBODY/ANTIGEN ([place] [facility]) Routine 04/19/2023 9:01 AM EDT from Last 3 Months or Most Recently Relevant to Health Maintenance Results * (ABNORMAL) Lipid Panel, Standard (08/25/2024 9:20 AM EST) Triglycerides 136 <150 mg/dL [facility] Comment:Desirable Triglyceri de: less than 150 mg/dLBorderline High Triglyceride 150-199 mg/dLHigh Triglyceride: 200-499 mg/dLVery High Triglyceride: greater than or equal to 5OO mg/dL Cholesterol 195 <200 mg/dL [facility] Comment:Desirable Cholestero l: less than 200 mg/dLBorderline High Cholesterol: 200-239 mg/dLHigh Cholesterol: greater than 239 mg/dL LDL Cholesterol Calculated 120(H) <100 mg/dL [facility] Comment:Desirable LDL: less than 100 mg/dLNear Optimal/Above Optimal LDL: 110- 129 mg/dLBorderline High LDL: 130-159 mg/dLHigh LDL: 160-189 mg/dLVery High LDL: greater than or equal to 190 mg/dL HDL Cholesterol 48 >40 mg/dL [facility] Comment:Desirable HDL: great er than 40 mg/dL Note: This HDL assay may give artificially low results in patients with liver disease. 08/25/2024 9:20 AM EST 08/25/2024 11:31 AM EST us Sisi Hyatt MD LAB BLOOD ORDERABLES Final Result [facility] [address] [place] [address] [phone] * (ABNORMAL) Colonoscopy (01/14/2024) Colonoscopy Abnormal( A) Normal Comment:7 polypswith Yusef,Bus hra MD Jean-Pierre Carlin MD HEALTH MAINTENANCE Final Result * Hepatitis C Antibody Reflex (04/19/2023 9:01 AM EDT) Hepatitis C Antibody Nonreactive Nonreactive [facility] Comment:Antibodies to HCV no t detected; does not exclude early acuteHCV infection. 04/19/2023 9:0 1 AM EDT 04/19/2023 11:20 AM EDT Sisi Hyatt MD LAB BLOOD ORDERABLES Final Result Performing Organization Address [facility] Co de Phone Number [facility] [address] [place] [phone] * HIV Ab/Ag ([facility]) (04/19/2023 9:01 AM EDT) HIV AB/AG Nonreactive Nonreactive [facility] Comment:HIV-1 p24 Ag and/or HIV-1/HIV-2 Ab not detected.A test result that is nonreactive does not exclude thepossibility of exposure to or infection with HIV-1 and/orHIV-2. Nonreactive results in this assay for individualswith prior exposure to HIV-1 and/or HIV-2 may be due toantigen and antibody levels that are below the limit ofdetection of this assay.The [employer] HIV Ag/Ab Combo assay result andsupplemental assay results should be interpreted inconjunction with the patient's clinical presentation,history and other laboratory results. If the results areinconsistent with clinical evidence, additional testing issuggested to confirm the result. 04/19/2023 9:01 AM EDT 04/19/2023 11:20 AM EDT Sisi Hyatt MD LAB BLOOD ORDERABLES Final Result Performing Organization Address [facility] Co de Phone Number [facility] [address] [place] [phone] from Last 3 Months or Most Recently Relevant to Health Maintenance Insurance [facility] Advance Directives Documents on File Type Date Recorded Patient Director Of Enterprise Architecture Expl anation Advance Directives and Living Will 05/28/2024 1:00 PM Health Care Proxy Care Teams Milk Handler Relationship Specialty Start Date End Date Edmar, MD Sisi [address] [place] [address] PCP - General Family Medicine 09/23/18 Cinda Johnson PharmD [address] [place] [address] Pharmacist Internal Medicine 06/08/24 Fabio Florian [address] [place] [address] Pulmonary Disease 08/12/24 Jose M King MD [address] [place] [address] Nephrology 09/02/24
--- OUTSIDE RECORDS SUMMARY | 2024-11-27 15:05 | XMS_ITS | Encounter Summary ---
Author Organization [facility] Address [address] [facility] 7t [place] [address] Care Team Providers Care House Principal Name Role Phone Sisi Hyatt MD Primary Care Provider +1- [phone] Cinda Johnson PharmD Unavailable Fabio Florian Unavailable Jose M King MD Unavailable Encounter Details Date Type Department Care Team (Late st Contact Info) Description 10/23/2022 Abstract [facility] [address] [place] [address] [phone] Sisi Hyatt MD [address] [place] [address] [phone] Social History Tobacco Use Types Packs/Day Years Used Date Smoking Tobacco: Never Assessed Sex and Gender Information Value Date Recorded [...] Description 03/04/2025 10:30 AM EDT Office Visit [facility] [address] [place] [address] [phone] Sisi Hyatt MD [address] [place] [address] [phone] documented as of this encounter Procedures Procedure Name Priority Date/Time Associated Diagnosis Comments HM COLONOSCOPY Routine 05/04/2014 documented in this encounter Results * Colonoscopy (05/04/2014) Colonoscopy tubular adenoma with Dr. Cortes us Historical Provider HEALTH MAINTENANCE Final Result documented in this encounter Visit Diagnoses Not on filedocumented in this encounter Care Teams House Principal Relationship Specialty Start Date End Date Sisi Hyatt MD [address] [place] [address] PCP - General Family Medicine 09/23/18 Cinda Johnson, JoelD [address] [place] [phone] Pharmacist Internal Medicine 06/08/24 Fabio Florian [address] [place] [address] Pulmonary Disease 08/12/24 Jose M King MD [address] [place] [address] Nephrology 09/02/24 documented as of this encounter
--- OUTSIDE RECORDS SUMMARY | 2024-11-27 15:05 | XMS_ITS | Encounter Summary ---
Author Organization [facility] Address [address] [facility] 7t [place] [address] Care Team Providers Care First Coat Sander Name Role Phone Tarsha Malone MD Primary Care Provider +- [phone] Cinda Johnson PharmD Unavailable +1- [phone] Fabio Florian Unavailable Jose M King MD Unavailable Reason for Referral * Consultation (Routine) - Pending Review Specialty Diagnoses / Procedures Referred By Contac t Referred To Contact Diagnoses Chronic obstructive pulmonary disease, unspecified COPD type (CMS/HCC) Procedures Pulmonary rehab therapeutic exercise Tarsha Malone MD [address] [place] [address] Phone: tel: fax: Referral ID Status Reason Start Date Expiration Date V isits Requested Visits Authorized [id number] Pending Review 11/25/2024 11/25/2025 1 1 * Consultation (Routine) - Authorized Specialty Diagnoses / Procedures Referred By Contac t Referred To Contact Behavioral Health Diagnoses Positive depression screening Tarsha Malone MD [address] [place] [address] Phone: tel: fax: Referral ID Status Reason Start Date Expiration Date Visits Requested Visits Authorized [id number] Authorized Specialty Services Required 11/25/2024 11/25/2025 1 1 Reason for Visit * Reason Comments Follow-up HTN Encounter Details Date Type Department Care Team (Late st Contact Info) Description 11/25/2024 2:00 PM EST Office Visit [facility] [address] [facility] [place] [phone] Tarsha Malone MD [address] [place], [place] [phone] Essential hypertension (Primary Dx); Chronic obstructive pulmonary disease, unspecified COPD type (CMS/HCC); Hypothyroidism, unspecified type; Depression, recurrent (CMS/HCC); Homelessness; Cardiac risk counseling; Encounter for immunization; Positive depression screening Social History Tobacco Use Types Packs/Day Years [...] with others, in a [place], in [place] [facility] [place], living outside on the street, on a [...] AM EDT documented as of this encounter Last Filed Vital Signs Vital Sign Reading [...] Mass Index 22.63 11/25/2024 1:55 PM EST documented in this encounter Progress Notes * Tarsha Malone MD - 11/25/2024 2:00 PM EST Subjective Patient ID: Sean Aguilar is a 59 y.o. male with past medical history of COPD, proteinuria, HTN, tubal adenoma and tobacco dependence who presents for Follow-up (HTN). Pt reports overall doing well. Phe notes he has just been increasingly SOB with minimal exertion. Pt reports he saw his registered health nurse about a month ago since last visit in 07/2024. States he is stilltaking Incruse Ellipta. Per registered health nurse report he recommended pt be on the Ellipta and Advair as well. Pt reports he has been having increased COPD exacerbations. He reports he smokes weed about 1-2 times a day, is trying to cut down as well. He reports he saw his Rail Transportation Operator last in August 2024, but has upcoming appt. next month. Denies alcohol. Reports he is smoking a lot less, still here and there, but cut down. Agrees to Flu vaccine, declines COVID today. Encouraged to get RSV vaccine at preferred pharmacy. Review of Systems Constitutional: Negative for fever and unexpected weight change. Respiratory: Positive for shortness of breath. Cardiovascular: Negative for chest pain. Gastrointestinal: Negative for abdominal pain. Genitourinary: Negative for difficulty urinating. Objective Visit Vitals BP (!) 130/90 Pulse 84 Temp 98.9 ??F (37.2 ??C) (Temporal) Resp 20 Ht 5' 6 (1.676 m) Wt 140 lb 3.2 oz (63.6 kg) SpO2 93% BMI 22.63 kg/m?? Smoking Status Former BSA 1.72 m?? Physical Exam Constitutional: Appearance: Normal appearance. Cardiovascular: Rate and Rhythm: Normal rate and regular rhythm. Heart sounds: Normal heart sounds. Pulmonary: Effort: Pulmonary effort is normal. Breath sounds: Normal breath sounds. No wheezing, rhonchi or rales. Musculoskeletal: Cervical back: Normal range of motion. Neurological: Mental Status: Mental status is at baseline. Psychiatric: Behavior: Behavior normal. Problem List Items Addressed This Visit Essential hypertension - Primary -Blood pressure is at goal -Continue lifestyle modifications -follows with Collaborative Drug Therapy Managment Program with our PharmDCARMENZA -given BP monitor to monitor at home. -Amlodipine 5mg started at last PCP visit 05/27/24 however patient seen in CDTM after and denies having started medication yet; was seen by nephrology team 06/03/24 and lisinopril increased to 20mg oncedaily without inclusion of amlodipine in plan. CDTM [facility] instructed patient to HOLD amlodipine and start lisinopril 20mg once daily Relevant Medications lisinopril 20 MG tablet Chronic obstructive lung disease (CMS/HCC) - PFTs 03/01/14 revealed severe obstructive airway disorder with partial reversibility with bronchodilator therapy - he is tobacco free x >1 year! - Continue Advair BID and Spiriva once daily started 03/06/2023 - O2 with ambulation 94%, baseline 95%. -Note from pulmonology with Dr. Florian 08/11/24 reviewed, no changes -continue Incruse Ellipta daily -continue Advair bid -contnue albuterol prn -Saw Visual Education Teacher Oct 2024, will request note. Today, 11/25/24, O2 SAT at 98%, discussed taking Advair and Incruse Ellipta everyday with albuterol for breakthrough. Walking O2 SAT dropped to 96%. Willalso call Pulmonology to enquire about Pulmonology rehab therapy. Hypothyroidism Lab Results Component Value Date TSH 0.73 05/30/2024 TSH 10.19 (H) 04/19/2023 -reports he has been taking his Levothyroxine. Depression, recurrent (CMS/HCC) -PHQ9 was positive 05/27/24 and 11/25/24. -not taking any anti-depressant at this time. -referred to [facility] 11/25/24 Homelessness -[facility] referral placed 05/27/24. -still having housing proles. Living with his sister currently. -re-referred to [facility] 11/25/24 Cardiac risk counseling Calculated 11/25/24: Borderline risk The 10-year ASCVD [...] start statin, will follow-up in 3 months. Other Visit Diagnoses Encounter for immunization Follow up in about 3 months (around 02/25/2025) for lungs, meds and possible pulm rehab. I, Brian Grier, am serving as a scribe to document services personally performed by Dr. Dutta, based on the patient's response to questions by provider and providers statements to me. documented in this encounter Miscellaneous Notes * Assessment & Plan Note - Brian Grier - 11/25/2024 2:30 PM ESTAssociated Problem(s): Homelessness -[facility] referral placed 05/27/24. -still having housing proles. Living with his sister currently. -re-referred to [facility] 11/25/24 * Assessment & Plan Note - Brian Grier - 11/25/2024 2:29 PM ESTAssociated Problem(s): Depression, recurrent (CMS/HCC) -PHQ9 was positive 05/27/24 and 11/25/24. -not taking any anti-depressant at this time. -referred to [facility] 11/25/24 * Assessment & Plan Note - Brian Grier - 11/25/2024 2:26 PM ESTAssociated Problem(s): Cardiac risk counseling Calculated 11/25/24: Borderline risk The 10-year ASCVD [...] start statin, will follow-up in 3 months. * Assessment & Plan Note - Brian Grier - 11/25/2024 2:25 PM ESTAssociated Problem(s): Hypothyroidism Lab Results Component Value Date TSH 0.73 05/30/2024 TSH 10.19 (H) 04/19/2023 -reports he has been taking his Levothyroxine. * Assessment & Plan Note - Brian Grier - 11/25/2024 2:25 PM ESTAssociated Problem(s): Chronic obstructive lung disease ([facility]/HCC) - PFTs 03/01/14 revealed severe obstructive airway disorder with partial reversibility with bronchodilator therapy - he is tobacco free x >1 year! - Continue Advair BID and Spiriva once daily started 03/06/2023 - O2 with ambulation 94%, baseline 95%. -Note from pulmonology with Dr. Florian 08/11/24 reviewed, no changes -continue Incruse Ellipta daily -continue Advair bid -contnue albuterol prn -Saw Visual Education Teacher Oct 2024, will request note. Today, 11/25/24, O2 SAT at 98%, discussed taking Advair and Incruse Ellipta everyday with albuterol for breakthrough. Walking O2 SAT dropped to 96%. Willalso call Pulmonology to enquire about Pulmonology rehab therapy. * Assessment & Plan Note - Brian Grier - 11/25/2024 2:22 PM ESTAssociated Problem(s): Essential hypertension -Blood pressure is at goal -Continue lifestyle modifications -follows with Collaborative Drug Therapy Managment Program with our PharmD, CARMENZA -given BP monitor to monitor at home. -Amlodipine 5mg started at last PCP visit 05/27/24 however patient seen in CDTM after and denies having started medication yet; was seen by nephrology team 06/03/24 and lisinopril increased to 20mg oncedaily without inclusion of amlodipine in plan. CDTM [facility] instructed patient to HOLD amlodipine and start lisinopril 20mg once daily * Addendum Note - Tarsha Malone MD - 11/25/2024 2:00 PM ESTAddended by: TARSHA MALONE on: 11/25/2024 03:36 PM Modules accepted: Orders documented in this encounter Plan of Treatment Upcoming Encounters Date Type Department Care Team (Late st Contact Info) Description 03/04/2025 10:30 AM EDT Office Visit [facility] [address] [place] [address] Tarsha Malone MD [address] [place] [address] Scheduled Orders Name Type Priority Associated Diagnoses Orde r Schedule Pulmonary rehab therapeutic exercise Card Rehab Routine Chronic obstructive pulmonary disease, unspecified COPD type (CMS/HCC) Expected: 11/25/2024 (Approximate), Expires: 11/25/2025 Scheduled Referrals Name Type Priority Associated Diagnoses Order Schedule Referral to Behavioral Health Outpatient Referral Routine Positive depression screening Expected: 11/25/2024 (Approximate), Expires: 11/25/2025 documented as of this encounter Visit Diagnoses Diagnosis Essential hypertension- Primary Unspecified essential hypertension Chronic obstructive pulmonary disease, unspecified COPD type (CMS/HCC) Hypothyroidism, unspecified type Depression, recurrent (CMS/HCC) Major depressive disorder, recurrent episode, unspecified Homelessness Lack of housing Cardiac risk counseling Encounter for immunization Positive depression screening documented in this encounter Additional Health Concerns Assessment Noted Time PHQ-9 Depression Total Score: 20 025 2:44 PM EST documented as of this encounter Care Teams First Coat Sander Relationship Specialty Start Date End Date Tarsha Malone MD [address] [place] [address] [phone] PCP - General Family Medicine 09/23/18 Cinda Johnson, JoelD [address] [place] [address] [phone] Pharmacist Internal Medicine 06/08/24 Fabio Florian [address] [place] [address] Pulmonary Disease 08/12/24 Jose M King MD [address] [place] [address] Nephrology 09/02/24 documented as of this encounter
--- OUTSIDE RECORDS SUMMARY | 2024-11-27 15:05 | XMS_ITS | Encounter Summary ---
Author Organization [employer] [facility] Address [address] [facility] 7t [place] [address] Care Team Providers Care Leg Assembler Name Role Phone Sisi Hyatt MD Primary Care Provider +1- [phone] Cinda Johnson PharmD Unavailable Fabio Florian Unavailable Jose M King MD Unavailable Encounter Details Date Type Department Care Team (Late st Contact Info) Description 04/22/2023 Orders Only [facility] MED[facility] [address] [place] [address] [phone] Sisi Hyatt MD [address] [place] [address] [phone] Social History Tobacco Use Types Packs/Day Years [...] Description 03/04/2025 10:30 AM EDT Office Visit [facility] [address] [place] [address] [phone] Sisi Hyatt MD [address] [place] [address] [phone] documented as of this encounter Visit Diagnoses Not on filedocumented in this encounter Additional Health Concerns Assessment Noted Time PHQ-9 Depression Total Score: 0 03/06/20 23 2:17 PM EDT documented as of this encounter Care Teams Leg Assembler Relationship Specialty Start Date End Date Sisi Hyatt MD [address] [place] [address] PCP - General Family Medicine 09/23/18 Cinda Johnson PharmD [address] [place] [address] Pharmacist Internal Medicine 06/08/24 Fabio Florian [address] [place] [address] Pulmonary Disease 08/12/24 Jose M King MD [address] [place] [address] Nephrology 09/02/24 documented as of this encounter
== END 2024-11-27 14:03 | disposition home or self-care (01) ==
PROVIDERS: PCP Family Medicine; Visit Provider Internal Medicine Nephrology
DX: N18.31 Chronic kidney disease, stage 3a (principal); I10 Essential (primary) hypertension; R80.8 Other proteinuria; N05.1 Unspecified nephritic syndrome with focal and segmental glomerular lesions
CPT/HCPCS: 99214

== ENCOUNTER → 2024-11-27 13:29 | Outpatient (BNVA) | payer OTHER, SELFPAY | PROVIDERS: PCP Family Medicine; Visit Provider Internal Medicine Nephrology | DX: I12.9 Hypertensive chronic kidney disease with stage 1 through stage 4 chronic kidney disease, or unspecified chronic kidney disease (principal); N18.2 Chronic kidney disease, stage 2 (mild); R80.8 Other proteinuria | CPT/HCPCS: 99212 ==

== ENCOUNTER 2024-12-08 13:33 | Outpatient (AMB) | payer OTHER, SELFPAY ==
[2024-12-08 13:45] VITALS: BP 110/70; PULSE 70; O2SAT 98; BMI 22.7
--- NOTE | 2024-12-08 13:45 | A.OFFVIS_ITS ---
Vital Signs 12/08/24 13:45 Height 5 ft 5 in Weight 136 lb 10.986 oz BMI 22.7 BP 110/70 Blood Pressure Location Lt brachial Position Sitting Pulse 70 Pulse Source Pulse Oximeter Pulse Oximetry (%) 98 Oxygen Delivery Method Room Air Intake Visit Reasons: copd Intake Note: pt is here for follow up and is about the same, some coughing and breathing is the same Waste Water Treatment Plant Operator Required: No Allergies No Known Allergies Allergy (Verified 12/08/24 14:08) Medication List - Last Reconciled 12/08/24 by Abbi Florian MD Advair HFA 230-21 mcg/actuation (fluticasone propion-salmeterol) 2 puffs PO BID NS levothyroxine 175 mcg PO DAILY lisinopril 20 mg PO DAILY umeclidinium 62.5 mcg/actuation (Incruse Ellipta) 1 inh inhalation BEDTIME Ventolin HFA 90 mcg/actuation (albuterol sulfate) 2 puffs PO Q4-6H PRN NS Do you need a note to return to daycare/school/sports/work: No HPI HPI copd: Details: This 59 years old gentleman, ex smoker, up until last visit 6 months ago he was still smoking 1 or 2 cigarettes a day. After that he has quit completely. His shortness of breath has remained stable. He gets short of breath if he has to climb 1 flight of stairs or walk up hill. He has mild intermittent dry cough. He continue to use his inhalers regularly. He is planning to go to [place] and was asking if it is okay for him to fly. 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 Review of Systems Const All systems reviewed & are unremarkable except as noted in HPI and below Eyes Reports no additional complaints ENT Reports nasal congestion (Mild off and) Card Denies chest pain, Denies irregular heart rhythm and Denies leg edema Resp Reports as per HPI GI Reports no additional complaints Reports no additional complaints Musc Reports no additional complaints Skin/Breast Reports system reviewed and no additional complaints, except as documented Neuro Reports no additional complaints Psych Reports no additional complaints Endo Reports other (Being treated for hypothyroidism) Aller/Immun Reports no additional complaints Physical Exam Vital Signs: Last Vital Signs Pulse 70 12/08/24 13:45 BP 110/70 12/08/24 13:45 Pulse Ox 98 12/08/24 13:45 Oxygen Delivery Method Room Air 12/08/24 13:45 BMI result Body Mass Index 22.7 Const General: healthy appearing, comfortable, no acute distress, alert and awake Orientation/consciousness: patient oriented x3 HEENT Head: Yes normal to inspection General nose exam: No nasal polyps present and No nasal discharge present Face and sinus: Yes sinuses nontender Mouth: oropharynx normal Throat: Yes posterior oropharynx normal Eyes General: appearance normal, both eyes and all related structures Neck Neck: Yes normal visual inspection, Yes no lymphadenopathy, Yes trachea midline and Yes no JVD Thyroid: Thyroid normal Chest Chest palpation & inspection: normal inspection of the chest, normal palpation of entire chest wall and no tenderness Resp Other: Percussion note is resonant . Breath sounds are moderately distant with prolonged expiratory phase. No wheezes or crepitations are heard. Cardio Palpation: normal PMI Rate: regular rate Rhythm: regular rhythm Heart sounds: no gallops and no murmurs Peripheral pulses: Peripheral pulses 2+ throughout GI Palpation (GI): Soft to palpation, nontender, No hepatosplenomegaly present and no masses Auscultation: normal bowel sounds Back/Spine/Pelvis Thoracic/Lumbar Spine: thoracic and lumbar spine normal to inspection Skin General skin exam: no rashes or lesions noted Neuro General: patient oriented x3 and no focal motor deficits Cranial nerves: Yes CN's II-XII intact bilaterally Extrem General: Yes normal to inspection, Yes no clubbing, cyanosis or edema and Yes no calf tenderness Psych Appearance: grossly normal and well kempt Speech and movement: Normal speech and movement present Assessment & Plan Assessment & Plan (1) Ex-smoker: Comment: HE HAS LONGSTANDING HISTORY OF SMOKING BUT BUT SINCE HIS LAST VISIT 4 MONTHS AGO HE HAS QUIT COMPLETELY. COUGH IS MUCH LESS SINCE HE IS NOT SMOKING. SHORTNESS OF BREATH ONLY ON WALKING UP HILL OR CLIMBING STAIRS. Code(s): Z87.891 - Personal history of nicotine dependence Category: Social Hx Plan: COMMENDED FOR QUITTING SMOKING COMPLETELY. DO NOT GO BACK TO SMOKING AT ALL. (2) COPD (chronic obstructive pulmonary disease): Comment: HE DOES HAVE CHRONIC OBSTRUCTIVE PULMONARY DISEASE, SEVERE . HIS CHRONIC OBSTRUCTIVE PULMONARY DISEASE IS GETTING WORSE. HE HAS INCREASED DYSPNEA ON EXERTION. SPIROMETRY IS CONSISTENT WITH VERY SEVERE OBSTRUCTIVE AIRWAY DISORDER. SYMPTOMATICALLY HE IS DOING MUCH BETTER SINCE HE QUIT SMOKING. Code(s): J44.9 - Chronic obstructive pulmonary disease, unspecified Category: Medical Plan: CONTINUE ADVAIR HFA 230-212 PUFFS B.I.D. INCRUSE ELLIPTA. 1 INHALATION DAILY VENTOLIN HFA 2 PUFFS Q 6 HOURS P.R.N.. * I TOLD HIM THAT IT IS OKAY TO FLY TO [place], HE SHOULD KEEP HIS ALBUTEROL HFA INHALER WITH HIM AND IF HE HAS ANY WHEEZING HE CAN USE IT. Coding Level of Care Code Est Pt Level 3 (68693) Diagnoses Ex-smoker Z87.891 COPD (chronic obstructive pulmonary disease) J44.9
--- OUTSIDE RECORDS SUMMARY | 2024-12-08 15:59 | XMS_ITS | Encounter Summary ---
Author Organization [employer] Address [address] [place] [facility] 7t [place] [address] Care Team Providers Care Acid Plant Helper Name Role Phone Sisi Hyatt MD Primary Care Provider +1- [phone] Cinda Johnson PharmD Unavailable +1- [phone] Fabio Florian Unavailable Jose M King MD [...] with others, in a hotel, in a correction, living outside on the street, on a [...] Description 03/04/2025 10:30 AM EDT Office Visit [facility] MEDICINE [address] [place] [phone] Sisi Hyatt MD [address] [place] [address] documented as of this encounter Visit Diagnoses Not on filedocumented in this encounter Additional Health Concerns Assessment Noted Time PHQ-9 Depression Total Score: 20 025 2:44 PM EST documented as of this encounter Care Teams Acid Plant Helper Relationship Specialty Start Date End Date Sisi Hyatt MD [address] [place] [phone] PCP - General Family Medicine 09/23/18 Cinda Johnson PharmD [address] [place] [phone] Pharmacist Internal Medicine 06/08/24 Fabio Florian [address] [place] [address] Pulmonary Disease 08/12/24 Jose M King MD [address] [place] [address] Nephrology 09/02/24 documented as of this encounter
--- OUTSIDE RECORDS SUMMARY | 2024-12-08 15:59 | XMS_ITS | Encounter Summary ---
Author Organization [employer] [facility] Address [address] [facility] 7t [place] [address] Care Team Providers Care Coach Builder Name Role Phone Sisi Hyatt MD Primary Care Provider +1- [phone] Cinda Johnson PharmD Unavailable Fabio Florian Unavailable Jose M King MD Unavailable Encounter Details Date Type Department Care Team (Late st Contact Info) Description 03/13/2023 Orders Only [facility] [address] [place] [address] Sisi Hyatt MD [address] [place], [place] [phone] Social History Tobacco Use Types Packs/Day Years [...] Description 03/04/2025 10:30 AM EDT Office Visit [facility] [address] [facility] [place] [address] Sisi Hyatt MD [address] [facility] [place] [address] documented as of this encounter Procedures Procedure Name Priority Date/Time Associated Diagnosis Comments HEPATITIS C ANTIBODY REFLEX Routine 04/19/2023 9:01 AM EDT HIV ANTIBODY/ANTIGEN ([place] [facility]) Routine 04/19/2023 9:01 AM EDT T4, FREE Routine 04/19/2023 9:01 AM EDT documented in this encounter Results * HIV Ab/Ag ([place] D[facility]) (04/19/2023 9:01 AM EDT) HIV AB/AG Nonreactive Nonreactive [facility] Comment:HIV-1 p24 Ag and/or HIV-1/HIV-2 Ab not detected.A test result that is nonreactive does not exclude thepossibility of exposure to or infection with HIV-1 and/orHIV-2. Nonreactive results in this assay for individualswith prior exposure to HIV-1 and/or HIV-2 may be due toantigen and antibody levels that are below the limit ofdetection of this assay.[employer] HIV Ag/Ab Combo assay result andsupplemental assay results should be interpreted inconjunction with the patient's clinical presentation,history and other laboratory results. If the results areinconsistent with clinical evidence, additional testing issuggested to confirm the result. 04/19/2023 9:01 AM EDT 04/19/2023 11:20 AM EDT us Sisi Hyatt MD LAB BLOOD ORDERABLES Final Result [facility] [address] [place] [address] [phone] * Hepatitis C Antibody Reflex (04/19/2023 9:01 AM EDT) Hepatitis C Antibody Nonreactive Nonreactive [facility] Comment:Antibodies to HCV no t detected; does not exclude early acuteHCV infection. 04/19/2023 9:01 AM EDT 04/19/2023 11:20 AM EDT Sisi Hyatt MD LAB BLOOD ORDERABLES Final Result Performing Organization Address City/[facility]/ZIP Co de Phone Number [facility] [address] [place] [address] [phone] * T4, Free (04/19/2023 9:01 AM EDT) Pathologist [facility] Free T4 (Free Thyroxine) 1.05 0.71 - 1.85 ng/dL [facility] 04/19/2023 9:01 AM EDT 04/19/2023 11:20 AM EDT Sisi Hyatt MD LAB BLOOD ORDERABLES Final Result Performing Organization Address [facility] de Phone Number [facility] [address] [place] [phone] documented in this encounter Visit Diagnoses Not on filedocumented in this encounter Additional Health Concerns Assessment Noted Time PHQ-9 Depression Total Score: 0 03/06/20 23 2:17 PM EDT documented as of this encounter Care Teams Coach Builder Relationship Specialty Start Date End Date Sisi Hyatt MD [address] [place] [address] PCP - General Family Medicine 09/23/18 Cinda Johnson, JoelD [address] [place] [phone] Pharmacist Internal Medicine 06/08/24 Fabio Florian [address] [place] [address] Pulmonary Disease 08/12/24 Jose M King MD [address] [place] [address] Nephrology 09/02/24 documented as of this encounter
--- OUTSIDE RECORDS SUMMARY | 2024-12-08 15:59 | XMS_ITS | Clinical Summary ---
Author Organization [employer] Address [address] [facility] 7t [place] [address] Care Team Providers Care Finger Lift Operator Name Role Phone Sisi Hyatt MD Primary Care Provider +1- [phone] Cinda Johnson PharmD Unavailable [phone] Fabio Florian Unavailable Jose M King MD [...] BREATH 18 g 11 4 Active Umeclidinium Grandy (Incruse Ellipta) 62.5 MCG/ACT aerosol powderIndications :Chronic [...] be different from the original. [facility] Agent: Angela, member services number [phone], provider services line, , option 4 Engine Head Repairer Agency: closed Problem Noted Date Diagnosed Date [...] Living with his sister currently. -re-referred to [facility] 11/25/24 Assessment & Plan (11/25/2024 2:30 PM EST): -SDOH referral placed 05/27/24. -still having housing proles. Living with his sister currently. -re-referred to [facility] 11/25/24 Assessment & Plan (06/08/2024 10:49 AM [...] and protective factors. Pt is connected with [facility] / Care Teams. Recommendations made around reaching [...] physical exam due 05/27/25 -Eye referral to [facility] Eye Care done 03/06/2023. -Dental strongly encouraged. -Health care proxy given and filed 05/27/24 Assessment & Plan (05/27/2024 10:57 AM EDT): -Next physical exam due 05/27/25 -Eye referral to [facility] Eye Care done 03/06/2023. -Dental strongly encouraged. -Health care proxy given and filed 05/27/24 Assessment & Plan (03/06/2023 3:07 PM EDT): Next PE due 03/06/2024. -Eye referral done 03/06/2023. -Dental strongly encouraged. Chronic obstructive lung disease 03/20/2022 Overview (12/08/2024): - PFTs 03/01/14 revealed severe obstructive airway disorder with partial reversibility with bronchodilator therapy - he is tobacco free x >1 year! - Continue Advair BID and Spiriva once daily started 03/06/2023 - O2 with ambulation 94%, baseline 95%. -Note from pulmonology with Dr. 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 Today, 11/25/24, [...] done 03/06/2023. Focal segmental glomerulosclerosis 03/20/2022 Overview (12/01/2024): -mild CKD, history proteinuria and hypertension -known [...] All these have been explained in detail. -note from 11/27/[address] Salguero Assessment & Plan (05/27/2024 11:07 AM EDT): [...] in 10/2017 -Seen by Dr. Alvarez 02/11/23 Depression, recurrent 01/28/2014 Overview (11/25/2024): -PHQ9 was positive 05/27/24 and 11/25/24. -not taking any anti-depressant at this time. -referred to [facility] 11/25/24 Assessment & Plan (12/08/2024 9:20 AM EDT): During IB Consult Sean presenting with depressed mood, Tearful, hopelessness, irritable mood, loss of interests/pleasure , sense of isolation/loneliness , isolating, change in appetite or weight reduce appetite, changes in sleep difficulty falling asleep, psychomotor retardation, fatigue/loss of energy, worthlessness, inappropriate/excessive guilt , difficulty concentrating, indecisiveness; for a period of 18+ mo, for most or all symptoms in the context of illness or family illness and housing. Sean endorsed depressive sxs associated with worsening of his medical condition (COPD/lung disease) and lack of housing. Current presentation of sxs is an on-going problem for him; pt is aware of importance of using coping mechanisms. Pt identifies his santana, sense of spirituality and his family as main strength. Sean will be referred out for therapy services and agreed to do follow-up with clinician to assess sxs and provide additional support. Provided information to contact [facility] if sooner appointment is needed. Assessment & Plan (11/25/2024 2:29 PM EST): -PHQ9 was positive 05/27/24 and 11/25/24. -not taking any anti-depressant at this time. -referred to [facility] 11/25/24 Assessment & Plan (06/08/2024 10:48 [...] and protective factors. Pt is connected with [facility] / Care Teams. Recommendations made around reaching out to coordinator with [facility] to assist w housing problem. Pt declined [...] Collaborative Drug Therapy Managment Program with our CARMENZA [place] -given BP monitor to monitor at home. -Amlodipine 5mg started at last PCP visit 05/27/24 however patient seen in [facility] after and denies having started medication yet; was seen by nephrology team 06/03/24 and lisinopril increased to 20mg once daily without inclusion of amlodipine in plan. [facility] instructed patient to HOLD amlodipine and start lisinopril 20mg once daily Assessment & Plan (11/25/2024 2:23 PM EST): -Blood pressure is at goal -Continue lifestyle modifications -follows with Collaborative Drug Therapy Managment Program with our CARMENZA [place] -given BP monitor to monitor at home. -Amlodipine 5mg started at last PCP visit 05/27/24 however patient seen in [facility] after and denies having started medication yet; was seen by nephrology team 06/03/24 and lisinopril increased to 20mg once daily without inclusion of amlodipine in plan. [facility] instructed patient to HOLD amlodipine and [...] -ordered albumin urine w/ creatinine 05/27/24 Encounters * This document contains information received from the source organization and may not represent a complete record from that organization. Date Type Department Care Team Description 11/25/2024 2:00 PM EST Office Visit [facility] [address] [place] [address] Sisi Hyatt MD Essential hypertension (Primary Dx); Chronic obstructive pulmonary disease, unspecified COPD type (CMS/HCC); Hypothyroidism, unspecified type; Depression, recurrent (CMS/HCC); Homelessness; Cardiac risk counseling; Encounter for immunization; Positive depression screening 11/25/[address] [address] Sisi Hyatt MD 11/25/2024 Travel 11/24/2024 Travel 11/17/2024 Patient Outreach [address] [address] Sisi Hyatt MD Care Coordination (CHW outreach for SDOH housing search-referral completed ) 11/17/2024 Patient Outreach [address] [address] Sisi Hyatt MD Pre-visit Planning (SDOH Screening positive and Tobacco screening negative) 10/01/[address] [address] Mamie Pablo MICHAEL November recall from Last 3 Months Immunizations Name Administration [...] Answer Date Recorded Patient Health Questionnaire-9 Score 12/08/2024 Patient Health Questionnaire-9 Score 19 12/08/2024 Last PHQ-9: Questionnaire Data Not on file 0 12/08/2024 Housing Stability Answer Date Recorded What is your housing situation today? I do not have housing (Staying with others, in a hotel, in a longterm, living outside on the street, on a [...] Date Recorded Patient Health Questionnaire-2 Score 5 12/08/2024 Internet Access Answer Date Recorded Internet Access [...] Description 03/04/2025 10:30 AM EDT Office Visit [facility] [address] [place] [address] Sisi Hyatt MD [address] [place] [address] Health Maintenance Due Date Last Done Comments CT Colonography 1963 FIT DNA/Cologuard 1963 FIT 1963 FOBT 1963 Sigmoidoscopy 1963 Zoster Vaccines (1 of 2) 2013 RSV Patients and Patients Aged 60 years or older (1 - Risk 60-74 years 1-dose series) 2023 Depression Monitoring (PHQ-9) 06/10/2025 12/08/2024, 12/08/2024 SDOH Screening 11/17/2025 11/17/2024 Alcohol/Substance Use Screening 11/25/2025 11/25/2024 COVID-19 Vaccine ( season) 2025 12/20/2021 Postponed from 05/24/2024 (Patient Refused) Tobacco Screening 11/25/2025 11/25/2024 Depression Screening 12/08/2025 12/08/2024, 12/09/19 25 Colonoscopy 01/13/2027 01/14/2024, 05/04/2014 Colorectal Cancer Screening 01/13/2027 Lipid Panel 08/25/2029 08/25/2024, 09/0 03/2024, 04/19/2023 DTaP/Tdap/Td Vaccines (3 - Td [...] 9:20 AM EST) Triglycerides 136 <150 mg/dL [facility] Comment:Desirable Triglyceri de: less than 150 mg/dLBorderline High Triglyceride 150-199 mg/dLHigh Triglyceride: 200-499 mg/dLVery High Triglyceride: greater than or equal to 5OO mg/dL Cholesterol 195 <200 mg/dL [facility] Comment:Desirable Cholestero l: less than 200 mg/dLBorderline High Cholesterol: 200-239 mg/dLHigh Cholesterol: greater than 239 mg/dL LDL Cholesterol Calculated 120(H) <100 mg/dL [facility] Comment:Desirable LDL: less than 100 mg/dLNear Optimal/Above Optimal LDL: 110- 129 mg/dLBorderline High LDL: 130-159 mg/dLHigh LDL: 160-189 mg/dLVery High LDL: greater than or equal to 190 mg/dL HDL Cholesterol 48 >40 mg/dL [facility] Comment:Desirable HDL: great er than 40 mg/dL Note: This HDL assay may give artificially low results in patients with liver disease. 08/25/2024 9:20 AM EST 08/25/2024 11:31 AM EST Sisi Hyatt MD LAB BLOOD ORDERABLES Final Result Performing Organization Address [facility] Co de Phone Number [facility] [address] [place] [phone] * (ABNORMAL) Hm Colonoscopy (01/14/2024) Colonoscopy Abnormal( A) Normal Comment:7 polypswith Rigoberto Holbrook MD Jean-Pierre Carlin MD HEALTH MAINTENANCE Final Result * Hepatitis C Antibody Reflex (04/19/2023 9:01 AM EDT) Hepatitis C Antibody Nonreactive Nonreactive [facility] Comment:Antibodies to HCV no t detected; does not exclude early acuteHCV infection. 04/19/2023 9:01 AM EDT 04/19/2023 11:20 AM EDT Sisi Hyatt MD LAB BLOOD ORDERABLES Final Result Performing Organization Address [facility] Co de Phone Number [facility] [address] [place] [address] [phone] * HIV Ab/Ag (MICHAEL HUDDLESTON) (04/19/2023 9:01 AM EDT) HIV AB/AG Nonreactive Nonreactive [facility] Comment:HIV-1 p24 Ag and/or HIV-1/HIV-2 Ab not detected.A test result that is nonreactive does not exclude thepossibility of exposure to or infection with HIV-1 and/orHIV-2. Nonreactive results in this assay for individualswith prior exposure to HIV-1 and/or HIV-2 may be due toantigen and antibody levels that are below the limit ofdetection of this assay.[employer] HIV Ag/Ab Combo assay result andsupplemental assay results should be interpreted inconjunction with the patient's clinical presentation,history and other laboratory results. If the results areinconsistent with clinical evidence, additional testing issuggested to confirm the result. 04/19/2023 9:01 AM EDT 04/19/2023 11:20 AM EDT Sisi Hyatt MD LAB BLOOD ORDERABLES Final Result [facility] [address] [place] [address] [phone] from Last 3 Months or Most Recently Relevant to Health Maintenance Insurance [facility] Advance Directives Documents on File Type Date Recorded Patient Journey Lineman Expl anation Advance Directives and Living Will 05/28/2024 1:00 PM Health Care Proxy Care Teams Finger Lift Operator Relationship Specialty Start Date End Date [place], [place] Sisi [address] [place], [place] PCP - General Family Medicine 09/23/18 Cinda Johnson, JoelD [address] [place] [address] Pharmacist Internal Medicine 06/08/24 Fabio Florian [address] [place], [place] Pulmonary Disease 08/12/24 Jose M King MD [address] [place], [place] Nephrology 09/02/24
--- OUTSIDE RECORDS SUMMARY | 2024-12-08 15:59 | XMS_ITS | Encounter Summary ---
Author Organization [employer] Address [address] [facility] 7t [place] [address] Care Team Providers Care Industrial Controller Name Role Phone Sisi Hyatt MD Primary Care Provider +1- [phone] Cinda Johnson PharmD Unavailable Fabio Florian Unavailable Jose M King MD Unavailable Reason for Visit * Reason Comments Pre-visit Planning SDOH Screening posit brandy and Tobacco screening negative Encounter Details Date Type Department Care Team (Late st Contact Info) Description 11/17/2024 Patient Outreach [facility] [address] [place], [place] [phone] Sisi Hyatt MD [address] [place], [place] [phone] Pre-visit Planning (SDOH Screening positive and Tobacco [...] the past 12 months, has t he [employer], gas, oil or water company threatened to [...] AM EDT Office Visit [facility] [address] [place] [address] Sisi Hyatt MD [address] [place] [address] documented as of this encounter Visit Diagnoses Not on filedocumented in this encounter Additional Health Concerns Assessment Noted Time PHQ-9 Depression Total Score: 22 024 10:35 AM EDT documented as of this encounter Care Teams Industrial Controller Relationship Specialty Start Date End Date Sisi Hyatt MD [address] [place] [address] PCP - General Family Medicine 09/23/18 Cinda Johnson PharmD [address] [place] [address] Pharmacist Internal Medicine 06/08/24 Fabio Florian [address] [place] [address] Pulmonary Disease 08/12/24 Jose M King MD [address] [place] [address] Nephrology 09/02/24 documented as of this encounter
--- OUTSIDE RECORDS SUMMARY | 2024-12-08 15:59 | XMS_ITS | Encounter Summary ---
Author Organization [employer] Address [address] [facility] 7t [place] [address] Care Team Providers Care Video Machines Mechanic Name Role Phone Sisi Hyatt MD Primary Care Provider +1- [phone] Cinda Johnson PharmD Unavailable Fabio Florian Unavailable Jose M King MD Unavailable Encounter Details Date Type Department Care Team (Late st Contact Info) Description 11/25/2024 Telephone [facility] [address] [place], [place] [phone] Sisi Hyatt MD [address] [place], [place] [phone] Social History Tobacco Use Types Packs/Day Years [...] with others, in a hotel, in a long term, living outside on the street, on a [...] Rehab Referral placed by PCP faxed to [facility] at [phone]. Also includedin the fax were the pt PFT's from [facility] and any office notes associated with them * Telephone Encounter - Mariya Bennett RN - 11/25/2024 3:03 PM EST TC placed to [facility] to inquire on the steps and information needed to place a referral for pulmonary rehabilitation services. Per the hr receptionist the PCP would need to initially refer the pt for either a PFT test or walk test. The referral must state that the pt needs at least a PFT.Once the pt has had one of these two tests the pt will then be scheduled for the appropriate interve ntions with pulmonary rehab. The fax number for [facility] in which the referral will need to be sentis [phone] * Telephone Encounter - Sisi Hyatt MD - 11/25/2024 2:17 PM EST Can you please ask [facility] pulmonary if they accept pts for pulmonary rehab and if so how to refer patients. documented in this encounter Plan of Treatment Upcoming Encounters Date Type Department Care Team (Late st Contact Info) Description 03/04/2025 10:30 AM EDT Office Visit [facility] [address] [place] [address] Sisi Hyatt MD [address] [place] [address] documented as of this encounter Visit Diagnoses Not on filedocumented in this encounter Additional Health Concerns Assessment Noted Time PHQ-9 Depression Total Score: 20 025 2:44 PM EST documented as of this encounter Care Teams Video Machines Mechanic Relationship Specialty Start Date End Date Sisi Hyatt MD [address] [place] [address] PCP - General Family Medicine 09/23/18 Cinda Johnson PharmD [address] [place] [phone] Pharmacist Internal Medicine 06/08/24 Fabio Florian [address] [place] [address] Pulmonary Disease 08/12/24 Jose M King MD [address] [place] [address] Nephrology 09/02/24 documented as of this encounter
--- OUTSIDE RECORDS SUMMARY | 2024-12-08 15:59 | XMS_ITS | Encounter Summary ---
Author Organization [employer] [facility] Address [address] [facility] 7t [place] [address] Care Team Providers Care Customer Service Leader Name Role Phone Sisi Hyatt MD Primary Care Provider +1- [phone] Cinda Johnson PharmD Unavailable Fabio Florian Unavailable Jose M King MD Unavailable Encounter Details Date Type Department Care Team (Late st Contact Info) Description 10/23/2022 Abstract [facility] [address] [place] [phone] Sisi Hyatt MD [address] [place] [address] [phone] Social History Tobacco Use Types Packs/Day Years [...] Description 03/04/2025 10:30 AM EDT Office Visit [facility] [address] [place] [address] [phone] Sisi Hyatt MD [address] [place] [address] [phone] documented as of this encounter Procedures Procedure Name Priority Date/Time Associated Diagnosis Comments HM COLONOSCOPY Routine 05/04/2014 documented in this encounter Results * Colonoscopy (05/04/2014) Colonoscopy tubular adenoma with Dr. Cortes us Historical Provider HEALTH MAINTENANCE Final Result documented in this encounter Visit Diagnoses Not on filedocumented in this encounter Care Teams Customer Service Leader Relationship Specialty Start Date End Date Sisi Hyatt MD [address] [place] [address] PCP - General Family Medicine 09/23/18 Cinda Johnson, JoelD [address] [place] [address] Pharmacist Internal Medicine 06/08/24 Fabio Florian 5 [place] [address] Pulmonary Disease 08/12/24 Jose M King MD [address] [place] [address] Nephrology 09/02/24 documented as of this encounter
--- OUTSIDE RECORDS SUMMARY | 2024-12-08 16:00 | XMS_ITS | Encounter Summary ---
Author Organization [employer] Address [address] [facility] 7t [place] [address] Care Team Providers Care Sales Training Manager Name Role Phone Sisi Hyatt MD Primary Care Provider +1- [phone] Cinda Johnson PharmD Unavailable +1- [phone] Fabio Florian Unavailable Jose M King MD [...] with others, in a hotel, in a residential, living outside on the street, on a [...] Description 03/04/2025 10:30 AM EDT Office Visit [facility] [address] [place] [address] Sisi Hyatt MD [address] [place] [address] documented as of this encounter Visit Diagnoses Not on filedocumented in this encounter Additional Health Concerns Assessment Noted Time PHQ-9 Depression Total Score: 22 024 10:35 AM EDT documented as of this encounter Care Teams Sales Training Manager Relationship Specialty Start Date End Date Sisi Hyatt MD [address] [place] [phone] PCP - General Family Medicine 09/23/18 Cinda Johnson, JoelD [address] [place] [address] Pharmacist Internal Medicine 06/08/24 Fabio Florian 5 [place] [address] Pulmonary Disease 08/12/24 Jose M King MD [address] [place] [address] Nephrology 09/02/24 documented as of this encounter
--- OUTSIDE RECORDS SUMMARY | 2024-12-08 16:00 | XMS_ITS | Encounter Summary ---
Author Organization [employer] Address [address] [facility] 7t [place] [address] Care Team Providers Care Cell Room Operator Name Role Phone Sisi Hyatt MD Primary Care Provider +1- [phone] Cinda Johnson PharmD Unavailable [phone] Fabio Florian Unavailable Jose M King MD Unavailable Reason for Visit * Reason Comments Care Coordination CHW outreach for SDO H housing search-referral completed Encounter Details Date Type Department Care Team (Latest Contact Info) Description 11/17/2024 Patient Outreach [facility] MEDICINE [address] [place], [place] [phone] Sisi Hyatt MD [address] [place] [address] Care Coordination (CHW outreach for SDOH housing [...] Wednesdays, and Walk-In Urgent Care Located in [facility] of [facility]. Patient provided with after-hours line for [facility], , which offer night time triage service and option to transfer to sanitation tank washer provider if needed. documented in this encounter Plan of Treatment Upcoming Encounters Date Type Department Care Team (Late st Contact Info) Description 03/04/2025 10:30 AM EDT Office Visit [facility] MEDICINE [address] [place] [address] Sisi Hyatt MD [address] [place] [address] documented as of this encounter Visit Diagnoses Not on filedocumented in this encounter Additional Health Concerns Assessment Noted Time PHQ-9 Depression Total Score: 22 024 10:35 AM EDT documented as of this encounter Care Teams Cell Room Operator Relationship Specialty Start Date End Date Sisi Hyatt MD [address] [place] [address] PCP - General Family Medicine 09/23/18 Cinda Johnson, JoelD [address] [place] [phone] Pharmacist Internal Medicine 06/08/24 Fabio Florian [address] [place] [address] Pulmonary Disease 08/12/24 Jose M King MD [address] [place] [address] Nephrology 09/02/24 documented as of this encounter
--- OUTSIDE RECORDS SUMMARY | 2024-12-08 16:00 | XMS_ITS | Encounter Summary ---
Author Organization [facility] Address [address] [facility] 7t [place] [address] Care Team Providers Care Lump Machine Operator Name Role Phone Sisi Hyatt MD Primary Care Provider [phone]- [phone] Cinda Johnson PharmD Unavailable Fabio Florian Unavailable Jose M King MD Unavailable Encounter Details Date Type Department Care Team (Late st Contact Info) Description 04/22/2023 Orders Only [facility] MEDICINE [address] [place] [address] [phone] Sisi Hyatt MD [address] [place] [address] [phone] Social History Tobacco Use Types Packs/Day Years [...] Description 03/04/2025 10:30 AM EDT Office Visit [facility] MEDICINE [address] [place] [address] [phone] Sisi Hyatt MD [address] [place] [address] [phone] documented as of this encounter Visit Diagnoses Not on filedocumented in this encounter Additional Health Concerns Assessment Noted Time PHQ-9 Depression Total Score: 0 03/06/20 23 2:17 PM EDT documented as of this encounter Care Teams Lump Machine Operator Relationship Specialty Start Date End Date Sisi Hyatt MD [address] [place] [address] PCP - General Family Medicine 09/23/18 Cinda Johnson PharmD [address] [place] [address] Pharmacist Internal Medicine 06/08/24 Fabio Florian 5 [place] [address] Pulmonary Disease 08/12/24 Jose M King MD [address] [place] [address] Nephrology 09/02/24 documented as of this encounter
--- OUTSIDE RECORDS SUMMARY | 2024-12-08 16:00 | XMS_ITS | Encounter Summary ---
Author Organization [facility] Address [address] [facility] 7t [place] [address] Care Team Providers Care Deputy Sheriff Generalist Name Role Phone Tarsha Malone MD Primary Care Provider +- [phone] Cinda Johnson PharmD Unavailable [phone]- [phone] Fabio Florian Unavailable Jose M King MD Unavailable Reason for Referral * Consultation (Routine) - Pending Review Specialty Diagnoses / Procedures Referred By Contac t Referred To Contact Diagnoses Chronic obstructive pulmonary disease, unspecified COPD type (CMS/HCC) Procedures Pulmonary rehab therapeutic exercise Tarsha Malone MD [address] [place] [address] Phone: tel: fax: Referral ID Status Reason Start Date Expiration Date V isits Requested Visits Authorized [id number] Pending Review 11/25/2024 11/25/2025 1 1 * Consultation (Routine) - Closed Specialty Diagnoses / Procedures Referred By Contac t Referred To Contact Behavioral Health Diagnoses Positive depression screening Tarsha Malone MD [address] [place] [address] Phone: tel: fax: Referral ID Status Reason Start Date Expiration Date V isits Requested Visits Authorized [id number] Closed Specialty Services Required 11/25/2024 11/25/2025 1 1 Reason for Visit * Reason Comments Follow-up HTN Encounter Details Date Type Department Care Team (Late st Contact Info) Description 11/25/2024 2:00 PM EST Office Visit [facility] MEDICINE [address] [place], [place] [phone] Tarsha Malone MD [address] [place], [place] [phone] Essential hypertension (Primary Dx); Chronic obstructive pulmonary [...] with others, in a hotel, in a alf, living outside on the street, on a [...] minimal exertion. Pt reports he saw his armature winder repairer about a month ago since last visit in 07/2024. States he is stilltaking Incruse Ellipta. Per armature winder repairer report he recommended pt be on the Ellipta and Advair as well. Pt reports he has been having increased COPD exacerbations. He reports he smokes weed about 1-2 times a day, is trying to cut down as well. He reports he saw his Hog Ringer last in August 2024, but has upcoming [...] without inclusion of amlodipine in plan. [facility] instructed patient to HOLD amlodipine and start [...] -continue Advair bid -contnue albuterol prn -Saw Yard Pipe Grader Oct 2024, will request note. Today, 11/25/24, [...] any anti-depressant at this time. -referred to [facility] 11/25/24 Homelessness -[facility] referral placed 05/27/24. -still having housing proles. Living with his sister currently. -re-referred to [facility] 11/25/24 Cardiac risk counseling Calculated 11/25/24: [...] - 11/25/2024 2:30 PM ESTAssociated Problem(s): Homelessness -[facility] referral placed 05/27/24. -still having housing proles. Living with his sister currently. -re-referred to [facility] 11/25/24 * Assessment & Plan Note - Brian Grier - 11/25/2024 2:29 PM ESTAssociated Problem(s): Depression, recurrent (CMS/HCC) -PHQ9 was positive 05/27/24 and 11/25/24. -not taking any anti-depressant at this time. -referred to [facility] 11/25/24 * Assessment & Plan Note - [...] PM ESTAssociated Problem(s): Chronic obstructive lung disease ([facility]) - PFTs 03/01/14 revealed severe obstructive airway disorder with partial reversibility with bronchodilator therapy - he is tobacco free x >1 year! - Continue Advair BID and Spiriva once daily started 03/06/2023 - O2 with ambulation 94%, baseline 95%. -Note from pulmonology with Dr. Florian 08/11/24 reviewed, no changes -continue Incruse Ellipta daily -continue Advair bid -contnue albuterol prn -Saw Yard Pipe Grader Oct 2024, will request note. Today, 11/25/24, [...] Collaborative Drug Therapy Managment Program with our JoelDCARMENZA -given BP monitor to monitor at home. -Amlodipine 5mg started at last PCP visit 05/27/24 however patient seen in [facility] after and denies having started medication yet; was seen by nephrology team 06/03/24 and lisinopril increased to 20mg oncedaily without inclusion of amlodipine in plan. [facility] instructed patient to HOLD amlodipine and start lisinopril 20mg once daily * Addendum Note - Tarsha Malone MD - 11/25/2024 2:00 PM ESTAddended by: TARSHA MALONE on: 11/25/2024 03:36 PM Modules accepted: Orders documented in this encounter Plan of Treatment Upcoming Encounters Date Type Department Care Team (Late st Contact Info) Description 03/04/2025 10:30 AM EDT Office Visit [facility] MEDICINE [address] [place] [phone] Tarsha Malone MD [address] [place] [address] Scheduled Orders Name Type Priority Associated Diagnoses [...] documented as of this encounter Care Teams Deputy Sheriff Generalist Relationship Specialty Start Date End Date Tarsha Malone MD [address] [place] [phone] PCP - General Family Medicine 09/23/18 Cinda Johnson, JoelD [address] [place] [address] [phone] Pharmacist Internal Medicine 06/08/24 Fabio Florian [address] [place] [address] Pulmonary Disease 08/12/24 Jose M King MD [address] [place] [address] Nephrology 09/02/24 documented as of this encounter
== END 2024-12-08 14:08 | disposition home or self-care (01) ==
LOC: HO.HPS 13:33
PROVIDERS: PCP Family Medicine; Visit Provider Internal Medicine
DX: Z87.891 Personal history of nicotine dependence (principal); J44.9 Chronic obstructive pulmonary disease, unspecified
CPT/HCPCS: 99213

== ENCOUNTER → 2024-12-08 13:33 | Outpatient (BNVA) | payer OTHER, SELFPAY | PROVIDERS: PCP Family Medicine; Visit Provider Internal Medicine | DX: J44.9 Chronic obstructive pulmonary disease, unspecified (principal); Z87.891 Personal history of nicotine dependence; Z79.899 Other long term (current) drug therapy | CPT/HCPCS: 99212 ==

== ENCOUNTER 2025-03-31 11:58 | Outpatient (REF) | payer OTHER, SELFPAY ==
--- OUTSIDE RECORDS SUMMARY | 2025-03-31 13:06 | XMS_ITS | Encounter Summary ---
Author Organization [employer] [facility] Address [address] [place] [address] 7[address] [place] [address] Care Team Providers Care Salvage Inspector Wood Parts Name Role Phone Sisi Hyatt MD Primary Care Provider +1- [phone] Cinda Johnson PharmD Unavailable [phone] Fabio Florian Unavailable Jose M King MD Unavailable Encounter Details Date Type Department Care Team (Late st Contact Info) Description 10/23/2022 Abstract [facility] MEDICINE [address] [place] [address] [phone] Sisi Hyatt MD [address] [place] [address] [phone] Social History Tobacco Use Types Packs/Day Years [...] Care Team (Late st Contact Info) Description 05/05/2025 9:30 AM EDT Office Visit [facility] MEDICINE [address] [place] [address] [phone] Sisi Hyatt MD [address] [place] [address] [phone] documented as of this encounter Procedures Procedure Name Priority Date/Time Associated Diagnosis Comments HM COLONOSCOPY Routine 05/04/2014 documented in this encounter Results * Colonoscopy (05/04/2014) Colonoscopy tubular adenoma with Dr. Cortes us Historical Provider HEALTH MAINTENANCE Final Result documented in this encounter Visit Diagnoses Not on filedocumented in this encounter Care Teams Salvage Inspector Wood Parts Relationship Specialty Start Date End Date Sisi Hyatt MD [address] [place] [address] PCP - General Family Medicine 09/23/18 Cinda Johnson, JoelD [address] [place] [address] Pharmacist Internal Medicine 06/08/24 Fabio Florian 5 [place] [address] Pulmonary Disease 08/12/24 Jose M King MD [address] [place] [address] Nephrology 09/02/24 documented as of this encounter
--- OUTSIDE RECORDS SUMMARY | 2025-03-31 13:06 | XMS_ITS | Patient Health Record ---
Author Organization [employer] [facility] Address [address] [place] [address] Care Team Providers Care Block Captain Name Role Phone Jameson Richard Unavailable [phone] Reason For Referral No Information Plan Of Treatment No Information
[2025-03-31 16:48] LABS: Anion Gap 10 (12-20); Blood Urea Nitrogen 11 mg/dL (9-16); Carbon Dioxide 30 mmol/L (22-29); Chloride 104 mmol/L (96-108); Estimated Glomerular Filt Rate > 60; Potassium 4.2 mmol/L (3.3-5.1); Sodium 140 mmol/L (135-145)
[2025-03-31 17:21] LABS: Protein/Creatinine Ratio, Ur 0.37 (<0.2); Total Protein Urine Random 72 mg/dL (<12)
== END 2025-03-31 11:59 | disposition home or self-care (01) ==
LOC: HO.HHCL 11:58
PROVIDERS: PCP Family Medicine; Visit Provider Internal Medicine Nephrology
DX: I12.9 Hypertensive chronic kidney disease with stage 1 through stage 4 chronic kidney disease, or unspecified chronic kidney disease (principal); N18.31 Chronic kidney disease, stage 3a; R80.8 Other proteinuria
CPT/HCPCS: 36415; 80051; 82565; 82570; 84156; 84520

== ENCOUNTER 2025-04-02 10:45 | Outpatient (AMB) | payer OTHER, SELFPAY ==
[2025-04-02 10:52] VITALS: BP 140/78; PULSE 77; O2SAT 97; BMI 22.8
--- NOTE | 2025-04-02 10:52 | HO.NEPHOV ---
Vital Signs 04/02/25 10:52 Height 5 ft 5 in Weight 137 lb BMI 22.8 BP 140/78 H Blood Pressure Location Rt brachial Position Sitting Pulse 77 Pulse Source Pulse Oximeter Pulse Oximetry (%) 97 Oxygen Delivery Method Room Air Intake Visit Reasons: 4mon follow-up w/labs-# Disconnected Printed Circuit Board Designer Required: No Accompanied by: Self / Same As Patient Allergies No Known Allergies Allergy (Verified 04/02/25 10:53) HPI Comments Details: Sean was seen in follow up of his mild CKD, history proteinuria and hypertension. He is known to have biopsy-proven FSGS causing CKD. His renal functions have been stable. He has been on lisinopril which he takes regularly. He avoids nonsteroidal anti-inflammatories and maintain good hydration. His blood pressure has been at goal. He is not a diabetic. He has no pedal edema. He denies any froth or foam in the urine. He has been on Cozaar at point which he discontinued due to concern for erectile dysfunction. His microalbumin creatinine ratio in 2013 was 774 and in 2014 was 547 which had improved to 356 in 2018. He denies any active drug use but smokes marijuana. He denies any history of coronary artery disease, congestive heart failure, carotid stenosis, peripheral arterial disease, renal artery stenosis or having any autoimmune diseases. 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 Physical Exam Vital Signs: Last Vital Signs Pulse 77 04/02/25 10:52 BP 140/78 H 04/02/25 10:52 Pulse Ox 97 04/02/25 10:52 Oxygen Delivery Method Room Air 04/02/25 10:52 BMI result Body Mass Index 22.8 Const General: comfortable and no acute distress Orientation/consciousness: patient oriented x3 HEENT Head: Yes normocephalic Mouth: Normal oral and palatal mucosa present Eyes EOM: EOMs intact bilaterally Neck Neck: Yes supple Resp Auscultation: clear to auscultation bilaterally Cardio Jugular venous distension: no JVD Rate: regular rate GI Palpation (GI): Soft to palpation Auscultation: normal bowel sounds General: Yes no CVA tenderness Back/Spine/Pelvis Back: no CVA tenderness Skin General skin exam: no rashes or lesions noted Neuro General: patient oriented x3 and moves all extremities Extrem General: Yes no pedal edema Results Reviewed Nephrology Results: Sodium, (135-145) 140 mmol/L 03/31/25 Potassium, (3.3-5.1) 4.2 mmol/L 03/31/25 Chloride, (96-108) 104 mmol/L 03/31/25 Carbon Dioxide, (22-29) 30 mmol/L H 03/31/25 BUN, (9-16) 11 mg/dL 03/31/25 Creatinine, (0.5-1.4) 1.19 mg/dL 03/31/25 Calcium, (8.4-10.2) 9.0 mg/dL 08/25/24 Urine Creatinine 195.38 mg/dL 03/31/25 Protein/Creatinin Ratio, (<0.2) 0.37 H 03/31/25 Assessment & Plan Assessment & Plan (1) HTN (hypertension): Code(s): I10 - Essential (primary) hypertension Category: Medical Qualifiers: Hypertension type: primary hypertension Qualified Code(s): I10 - Essential (primary) hypertension (2) CKD stage 3a, GFR 45-59 ml/min: Code(s): N18.31 - Chronic kidney disease, stage 3a Category: Medical (3) FSGS (focal segmental glomerulosclerosis): Code(s): N05.1 - Unspecified nephritic syndrome with focal and segmental glomerular lesions Category: Medical (4) Proteinuria: Code(s): R80.9 - Proteinuria, unspecified Category: Medical Qualifiers: Proteinuria type: other Qualified Code(s): R80.8 - Other proteinuria Plan He has mild CKD, history proteinuria and hypertension. He is known to have biopsy-proven FSGS causing CKD. His renal functions have been stable. He can continue lisinopril 20 mg daily at the last visit. I plan to maximize the dose of it and add SGLT2i with time. He avoids nonsteroidal anti-inflammatories and maintain good hydration. His blood pressure has been at goal. He is not a diabetic. He has been on Cozaar at point which he discontinued due to concern for erectile dysfunction. His microalbumin creatinine ratio in 2014 was 774 and in 2015 was 547 which had improved to 356 in 2018. All these have been explained in detail. Answered all questions. Follow-up lab work ordered & follow-up appointment given Orders: Orders Blood Urea Nitrogen 4 Months I10 - Essential (primary) hypertension, N05.1 - Unspecified nephritic syndrome with focal and segmental glomerular lesions, N18.31 - Chronic kidney disease, stage 3a, R80.8 - Other proteinuria Protein Creatinine Ratio, Ur 4 Months I10 - Essential (primary) hypertension, N05.1 - Unspecified nephritic syndrome with focal and segmental glomerular lesions, N18.31 - Chronic kidney disease, stage 3a, R80.8 - Other proteinuria Creatinine 4 Months I10 - Essential (primary) hypertension, N05.1 - Unspecified nephritic syndrome with focal and segmental glomerular lesions, N18.31 - Chronic kidney disease, stage 3a, R80.8 - Other proteinuria Electrolytes 4 Months I10 - Essential (primary) hypertension, N05.1 - Unspecified nephritic syndrome with focal and segmental glomerular lesions, N18.31 - Chronic kidney disease, stage 3a, R80.8 - Other proteinuria Coding Level of Care Code Est Pt Level 4 (30451) Diagnoses Primary hypertension I10 Hypertension type: primary hypertension CKD stage 3a, GFR 45-59 ml/min N18.31 FSGS (focal segmental glomerulosclerosis) N05.1 Other proteinuria R80.8 Proteinuria type: other
--- OUTSIDE RECORDS SUMMARY | 2025-04-02 11:24 | XMS_ITS | Patient Health Record ---
Author Organization [facility] Address [address] [place] [address] Care Team Providers Care Photoengraving Helper Name Role Phone Jameson Richard Unavailable [phone] Reason For Referral No Information Plan Of Treatment No Information
--- OUTSIDE RECORDS SUMMARY | 2025-04-02 11:24 | XMS_ITS | Encounter Summary ---
Author Organization [facility] Address [address] [place] [address] [address] [place] [address] Care Team Providers Care Software Verification Engineer Name Role Phone Sisi Hyatt MD Primary Care Provider +1- [phone] Cinda Johnson PharmD Unavailable Fabio Florian Unavailable Jose M King MD Unavailable Encounter Details Date Type Department Care Team (Late st Contact Info) Description 10/23/2022 Abstract [facility] MEDICINE [address] [place] [address] [phone] Sisi Hyatt MD [address] [place] [address] [phone] Social History Tobacco Use Types Packs/Day Years [...] Description 05/05/2025 9:30 AM EDT Office Visit [facility] MEDICINE [address] [place] [address] [phone] Sisi Hyatt MD [address] [place] [address] [phone] documented as of this encounter Procedures Procedure Name Priority Date/Time Associated Diagnosis Comments HM COLONOSCOPY Routine 05/04/2014 documented in this encounter Results * Colonoscopy (05/04/2014) Colonoscopy tubular adenoma with Dr. Cortes us Historical Provider HEALTH MAINTENANCE Final Result documented in this encounter Visit Diagnoses Not on filedocumented in this encounter Care Teams Software Verification Engineer Relationship Specialty Start Date End Date Siis Hyatt MD [address] [place] [address] PCP - General Family Medicine 09/23/18 Cinda Johnson, JoelD [address] [place] [address] Pharmacist Internal Medicine 06/08/24 Fabio Florian 5 [place] [address] Pulmonary Disease 08/12/24 Jose M King MD [address] [place] [address] Nephrology 09/02/24 documented as of this encounter
== END 2025-04-02 11:11 | disposition home or self-care (01) ==
LOC: HO.HKA 10:46
PROVIDERS: PCP Family Medicine; Visit Provider Internal Medicine Nephrology
DX: I10 Essential (primary) hypertension (principal); N18.31 Chronic kidney disease, stage 3a; N05.1 Unspecified nephritic syndrome with focal and segmental glomerular lesions; R80.8 Other proteinuria
CPT/HCPCS: 99214

== ENCOUNTER → 2025-04-02 10:45 | Outpatient (BNVA) | payer OTHER, SELFPAY | PROVIDERS: PCP Family Medicine; Visit Provider Internal Medicine Nephrology | DX: I10 Essential (primary) hypertension (principal) | CPT/HCPCS: 99212 ==

== ENCOUNTER 2025-06-07 13:33 | Outpatient (AMB) | payer OTHER, SELFPAY ==
[2025-06-07 13:41] VITALS: BP 120/80; PULSE 77; O2SAT 97; BMI 22.9
--- NOTE | 2025-06-07 13:41 | MHC.OFFVIS ---
Vital Signs 06/07/25 13:41 Height 5 ft 5 in Weight 137 lb 12.623 oz BMI 22.9 BP 120/80 Blood Pressure Location Lt brachial Position Sitting Pulse 77 Pulse Source Pulse Oximeter Pulse Oximetry (%) 97 Oxygen Delivery Method Room Air Intake Visit Reasons: COPD Intake Note: pt is here for follow up and states he is feeling his asthma at times when he does things to fast or carry things. Food Beverage Attendant Required: No Allergies No Known Allergies Allergy (Verified 06/07/25 14:05) Medication List - Last Reconciled 06/07/25 by Abbi Florian MD Advair HFA 230-21 mcg/actuation (fluticasone propion-salmeterol) 2 puffs PO BID NS levothyroxine 175 mcg PO DAILY lisinopril 20 mg PO DAILY umeclidinium 62.5 mcg/actuation (Incruse Ellipta) 1 inh inhalation BEDTIME Ventolin HFA 90 mcg/actuation (albuterol sulfate) 2 puffs PO Q4-6H PRN NS Do you need a note to return to daycare/school/sports/work: No HPI HPI COPD: Details: Sean is 59 years old gentleman with past history of smoking. Quit 9 years ago, and has no inclination to go back to smoking. However he does have advanced chronic obstructive pulmonary. Disease due to past smoking In main symptom being shortness of breath on walking up hill or climbing stairs. He also has mild intermittent cough which is mostly nonproductive. He is living on the 3rd floor and claims that he gets short of breath when he goes up to the 2nd in the 3rd floor. Luckily he has had no acute respiratory infection and thus no acute exacerbation during the past 1 year. 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 Review of Systems Const All systems reviewed & are unremarkable except as noted in HPI and below Eyes Reports no additional complaints ENT Reports nasal congestion (Mild off and) Card Denies chest pain, Denies irregular heart rhythm and Denies leg edema Resp Reports as per HPI GI Reports no additional complaints Reports no additional complaints Musc Reports no additional complaints Skin/Breast Reports system reviewed and no additional complaints, except as documented Neuro Reports no additional complaints Psych Reports no additional complaints Endo Reports other (Being treated for hypothyroidism) Aller/Immun Reports no additional complaints Physical Exam Vital Signs: Last Vital Signs Pulse 77 06/07/25 13:41 BP 120/80 06/07/25 13:41 Pulse Ox 97 06/07/25 13:41 Oxygen Delivery Method Room Air 06/07/25 13:41 BMI result Body Mass Index 22.9 Const General: healthy appearing, comfortable, no acute distress, alert and awake Orientation/consciousness: patient oriented x3 HEENT Head: Yes normal to inspection General nose exam: No nasal polyps present and No nasal discharge present Face and sinus: Yes sinuses nontender Mouth: oropharynx normal Throat: Yes posterior oropharynx normal Eyes General: appearance normal, both eyes and all related structures Neck Neck: Yes normal visual inspection, Yes no lymphadenopathy, Yes trachea midline and Yes no JVD Thyroid: Thyroid normal Chest Chest palpation & inspection: normal inspection of the chest, normal palpation of entire chest wall and no tenderness Resp Other: Percussion note is resonant . Breath sounds are moderately distant with prolonged expiratory phase. No wheezes or crepitations are heard. Cardio Palpation: normal PMI Rate: regular rate Rhythm: regular rhythm Heart sounds: no gallops and no murmurs Peripheral pulses: Peripheral pulses 2+ throughout GI Palpation (GI): Soft to palpation, nontender, No hepatosplenomegaly present and no masses Auscultation: normal bowel sounds Back/Spine/Pelvis Thoracic/Lumbar Spine: thoracic and lumbar spine normal to inspection Skin General skin exam: no rashes or lesions noted Neuro General: patient oriented x3 and no focal motor deficits Cranial nerves: Yes CN's II-XII intact bilaterally Extrem General: Yes normal to inspection, Yes no clubbing, cyanosis or edema and Yes no calf tenderness Psych Appearance: grossly normal and well kempt Speech and movement: Normal speech and movement present Office Procedures Spirometry Testing Spirometry Comments: In office spirometry completed with results given to Dr. Florian. [id number]- Spirometry Results Reviewed Results Reviewed: CHEST XRAY 07/2024 PULMONARY EMPHYSEMA, NO OTHER SIGNIFICANT CHANGES. SPIROMETRY 08/10/2024 06/07/2025 FVC= 45 % FEV1 18 % FEF 25-75 8 % Assessment & Plan Assessment & Plan (1) COPD (chronic obstructive pulmonary disease): Comment: HE DOES HAVE CHRONIC OBSTRUCTIVE PULMONARY DISEASE, SEVERE . HIS CHRONIC OBSTRUCTIVE PULMONARY DISEASE IS GETTING WORSE. HE HAS INCREASED DYSPNEA ON EXERTION. SPIROMETRY IS CONSISTENT WITH VERY SEVERE OBSTRUCTIVE AIRWAY DISORDER. Code(s): J44.9 - Chronic obstructive pulmonary disease, unspecified Category: Medical Plan: CONTINUE ADVAIR HFA 230-21 2 PUFFS B.I.D.. INCRUSE ELLIPTA 1 INHALATION DAILY, AND VENTOLIN 2 PUFFS Q 6 HOURS P.R.N.. LATTER GIVEN TO HIM TO PRESENT TO THE HOUSING AUTHORITY THAT HE SHOULD GET AN APARTMENT ON THE 1ST FLOOR. (2) Ex-smoker: Comment: HE HAS LONGSTANDING HISTORY OF SMOKING BUT HE QUIT SMOKING ABOUT 9 YEARS AGO. HE HAS NO INCLINATION TO GO BACK TO SMOKING. SYMPTOMATICALLY FEELS MUCH BETTER EXCEPT FOR DYSPNEA ON MINIMAL EXERTION COUGH IS MUCH LESS SINCE HE IS NOT SMOKING. SHORTNESS OF BREATH ONLY ON WALKING UP HILL OR CLIMBING STAIRS. HE IS CURRENTLY LIVING ON THE 3RD FLOOR AND FINDS IT DIFFICULT TO CLIMB THE STAIRS. Code(s): Z87.891 - Personal history of nicotine dependence Category: Social Hx Plan: COMMENDED FOR NOT SMOKING. Orders: Orders AMB Spirometry Testing Today J44.9 - Chronic obstructive pulmonary disease, unspecified Coding Level of Care Code Est Pt Level 3 (39827) Diagnoses COPD (chronic obstructive pulmonary disease) J44.9 Ex-smoker Z87.891 CPT Codes Spirometry - CPT: 46356- Spirometry ([id number])
--- NOTE | 2025-06-07 14:23 | MHC.OFFVIS ---
Vital Signs 06/07/25 13:41 Height 5 ft 5 in Weight 137 lb 12.623 oz BMI 22.9 BP 120/80 Blood Pressure Location Lt brachial Position Sitting Pulse 77 Pulse Source Pulse Oximeter Pulse Oximetry (%) 97 Oxygen Delivery Method Room Air Intake Visit Reasons: COPD Allergies No Known Allergies Allergy (Verified 06/07/25 14:05) Medication List - Last Reconciled 06/07/25 by Abbi Florian MD Advair HFA 230-21 mcg/actuation (fluticasone propion-salmeterol) 2 puffs PO BID NS levothyroxine 175 mcg PO DAILY lisinopril 20 mg PO DAILY umeclidinium 62.5 mcg/actuation (Incruse Ellipta) 1 inh inhalation BEDTIME Ventolin HFA 90 mcg/actuation (albuterol sulfate) 2 puffs PO Q4-6H PRN NS PFSH Medical History Osteomyelitis Felon of finger of right hand COPD exacerbation Hypothyroid HTN (hypertension) Ex-smoker COPD (chronic obstructive pulmonary disease) Surgical History H/O colonoscopy History of incision and drainage History of esophagogastroduodenoscopy (EGD) Social History Patient Tobacco Use Status: Former Tobacco user Tobacco use type: Cigarette Years Smoked: 40 years Current occupational status: disabled 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 Florian. [id number]- Spirometry Assessment & Plan Assessment & Plan (1) COPD (chronic obstructive pulmonary disease): Comment: HE DOES HAVE CHRONIC OBSTRUCTIVE PULMONARY DISEASE, SEVERE . HIS CHRONIC OBSTRUCTIVE PULMONARY DISEASE IS GETTING WORSE. HE HAS INCREASED DYSPNEA ON EXERTION. SPIROMETRY IS CONSISTENT WITH VERY SEVERE OBSTRUCTIVE AIRWAY DISORDER. Code(s): J44.9 - Chronic obstructive pulmonary disease, unspecified Category: Medical (2) Ex-smoker: Comment: HE HAS LONGSTANDING HISTORY OF SMOKING BUT HE QUIT SMOKING ABOUT 9 YEARS AGO. HE HAS NO INCLINATION TO GO BACK TO SMOKING. SYMPTOMATICALLY FEELS MUCH BETTER EXCEPT FOR DYSPNEA ON MINIMAL EXERTION COUGH IS MUCH LESS SINCE HE IS NOT SMOKING. SHORTNESS OF BREATH ONLY ON WALKING UP HILL OR CLIMBING STAIRS. HE IS CURRENTLY LIVING ON THE 3RD FLOOR AND FINDS IT DIFFICULT TO CLIMB THE STAIRS. Code(s): Z87.891 - Personal history of nicotine dependence Category: Social Hx Orders: Orders AMB Spirometry Testing Today J44.9 - Chronic obstructive pulmonary disease, unspecified Coding Diagnoses COPD (chronic obstructive pulmonary disease) J44.9 Ex-smoker Z87.891 CPT Codes Spirometry - CPT: 55642- Spirometry ([id number])
--- NOTE | 2025-06-07 17:00 | MHC.OFFVIS ---
Vital Signs 06/07/25 13:41 Height 5 ft 5 in Weight 137 lb 12.623 oz BMI 22.9 BP 120/80 Blood Pressure Location Lt brachial Position Sitting Pulse 77 Pulse Source Pulse Oximeter Pulse Oximetry (%) 97 Oxygen Delivery Method Room Air Intake Visit Reasons: COPD Allergies No Known Allergies Allergy (Verified 06/07/25 14:05) Medication List - Last Reconciled 06/07/25 by Abbi Flroian MD Advair HFA 230-21 mcg/actuation (fluticasone propion-salmeterol) 2 puffs PO BID NS levothyroxine 175 mcg PO DAILY lisinopril 20 mg PO DAILY umeclidinium 62.5 mcg/actuation (Incruse Ellipta) 1 inh inhalation BEDTIME Ventolin HFA 90 mcg/actuation (albuterol sulfate) 2 puffs PO Q4-6H PRN NS PFSH Medical History Osteomyelitis Felon of finger of right hand COPD exacerbation Hypothyroid HTN (hypertension) Ex-smoker COPD (chronic obstructive pulmonary disease) Surgical History H/O colonoscopy History of incision and drainage History of esophagogastroduodenoscopy (EGD) Social History Patient Tobacco Use Status: Former Tobacco user Tobacco use type: Cigarette Years Smoked: 40 years Current occupational status: disabled 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 Florian. 24055- Spirometry Assessment & Plan Assessment & Plan (1) COPD (chronic obstructive pulmonary disease): Comment: HE DOES HAVE CHRONIC OBSTRUCTIVE PULMONARY DISEASE, SEVERE . HIS CHRONIC OBSTRUCTIVE PULMONARY DISEASE IS GETTING WORSE. HE HAS INCREASED DYSPNEA ON EXERTION. SPIROMETRY IS CONSISTENT WITH VERY SEVERE OBSTRUCTIVE AIRWAY DISORDER. Code(s): J44.9 - Chronic obstructive pulmonary disease, unspecified Category: Medical Plan: CONTINUE TO USE THE ADVAIR HFA 230-212 PUFFS B.I.D., INCRUSE ELLIPTA 1 INHALATION DAILY, AND VENTOLIN 2 PUFFS Q 4-6 HOURS P.R.N. (2) Ex-smoker: Comment: HE HAS LONGSTANDING HISTORY OF SMOKING BUT HE QUIT SMOKING ABOUT 9 YEARS AGO. HE HAS NO INCLINATION TO GO BACK TO SMOKING. SYMPTOMATICALLY FEELS MUCH BETTER EXCEPT FOR DYSPNEA ON MINIMAL EXERTION COUGH IS MUCH LESS SINCE HE IS NOT SMOKING. SHORTNESS OF BREATH ONLY ON WALKING UP HILL OR CLIMBING STAIRS. HE IS CURRENTLY LIVING ON THE 3RD FLOOR AND FINDS IT DIFFICULT TO CLIMB THE STAIRS. Code(s): Z87.891 - Personal history of nicotine dependence Category: Social Hx Plan: COMMENDED FOR NOT SMOKING NOTE GIVEN TO HIM FOR HOUSING AUTHORITY TO SEE IF THEY CAN PROVIDE HIM AN APARTMENT ON THE 1ST FLOOR Orders: Orders AMB Spirometry Testing Today J44.9 - Chronic obstructive pulmonary disease, unspecified Coding Level of Care Code Est Pt Level 3 (41128) Diagnoses COPD (chronic obstructive pulmonary disease) J44.9 Ex-smoker Z87.891 CPT Codes Spirometry - CPT: 70693- Spirometry ([id number])
--- OUTSIDE RECORDS SUMMARY | 2025-06-07 18:47 | XMS_ITS | Encounter Summary ---
Author Organization [employer] Address [address] [facility] [address] [place] [address] Care Team Providers Care Port Engineer Name Role Phone Sisi Hyatt MD Primary Care Provider +1- [phone] Cinda Johnson PharmD Unavailable Fabio Florian Unavailable Jose M King MD Unavailable Encounter Details Date Type Department Care Team (Late st Contact Info) Description 04/22/2023 Orders Only [facility]INE [address] [place] [address] Sisi Hyatt MD [address] [place], [place] [phone] Social History Tobacco Use Types Packs/Day Years [...] as of this encounter Plan of Treatment Not on file documented as of this encounter Visit Diagnoses Not on filedocumented in this encounter Additional Health Concerns Assessment Noted Time PHQ-9 Depression Total Score: 0 03/06/20 23 2:17 PM EDT documented as of this encounter Care Teams Port Engineer Relationship Specialty Start Date End Date Sisi Hyatt MD [address] [place] [address] PCP - General Family Medicine 09/23/18 Cinda Johnson, JoelD [address] [place] [address] Pharmacist Internal Medicine 06/08/24 Fabio Florian [address] [place] [address] Pulmonary Disease 08/12/24 Jose M King MD [address] [place] [address] Nephrology 09/02/24 documented as of this encounter
--- OUTSIDE RECORDS SUMMARY | 2025-06-07 18:47 | XMS_ITS | Encounter Summary ---
Author Organization [employer] Address [address] [facility] 7[address] [place] [address] Care Team Providers Care Event Promotions Coordinator Name Role Phone iSsi Hyatt MD Primary Care Provider +1- [phone] Cinda Johnson PharmD Unavailable Fabio Florian Unavailable Jose M King MD Unavailable Encounter Details Date Type Department Care Team (Late st Contact Info) Description 10/23/2022 Abstract [facility] MEDICINE [address] [place] [address] Sisi Hyatt MD [address] [place], [place] [phone] Social History Tobacco Use Types Packs/Day Years [...] on file documented as of this encounter Procedures Procedure Name Priority Date/Time Associated Diagnosis Comments COLONOSCOPY Routine 05/04/2014 documented in this encounter Results * Colonoscopy (05/04/2014) Colonoscopy tubular adenoma with Dr. Cortes us Historical Provider HEALTH MAINTENANCE Final Result documented in this encounter Visit Diagnoses Not on filedocumented in this encounter Care Teams Event Promotions Coordinator Relationship Specialty Start Date End Date [place], Sisi, MD [address] [place] [address] PCP - General Family Medicine 09/23/18 Cinda Johnson PharmD [address] [place] [address] Pharmacist Internal Medicine 06/08/24 Fabio Florian [address] [place] [address] Pulmonary Disease 08/12/24 Jose M King MD [address] [place] [address] Nephrology 09/02/24 documented as of this encounter
--- OUTSIDE RECORDS SUMMARY | 2025-06-07 18:47 | XMS_ITS | Patient Health Record ---
Author Organization [facility] [facility] Address [address] [place] [address] Care Team Providers Care Secretary Board Of Commissioners Name Role Phone Jameson Richard Unavailable [phone] Reason For Referral No Information Plan Of Treatment No Information
--- OUTSIDE RECORDS SUMMARY | 2025-06-07 18:47 | XMS_ITS | Encounter Summary ---
Author Organization [employer] Address [address] [facility] [address] [place] [address] Care Team Providers Care School Traffic Guard Name Role Phone Sisi Hyatt MD Primary Care Provider +1- [phone] Cinda Johnson PharmD Unavailable Fabio Florian Unavailable Jose M King MD Unavailable Encounter Details Date Type Department Care Team (Late st Contact Info) Description 03/13/2023 Orders Only [facility] MEDICINE [address] [place] [address] Sisi Hyatt MD [address] [place], [place] [phone] Social History Tobacco Use Types Packs/Day Years [...] in this encounter Results * HIV Ab/Ag (MICHAEL [facility]) (04/19/2023 9:01 AM EDT) HIV AB/AG Nonreactive Nonreactive [facility] Comment:HIV-1 p24 Ag and/or HIV-1/HIV-2 Ab not detected.A test result that is nonreactive does not exclude thepossibility of exposure to or infection with HIV-1 and/orHIV-2. Nonreactive results in this assay for individualswith prior exposure to HIV-1 and/or HIV-2 may be due toantigen and antibody levels that are below the limit ofdetection of this assay.The [employer] HIV Ag/Ab Combo assay result andsupplemental assay results should be interpreted inconjunction with the patient's clinical presentation,history and other laboratory results. If the results areinconsistent with clinical evidence, additional testing issuggested to confirm the result. 04/19/2023 9:01 AM EDT 04/19/2023 11:20 AM EDT Sisi Hyatt MD LAB BLOOD ORDERABLES Final Result [facility] [address] [place] [address] [phone] * Hepatitis C Antibody Reflex (04/19/2023 9:01 AM EDT) Hepatitis C Antibody Nonreactive Nonreactive [facility] Comment:Antibodies to HCV no t detected; does not exclude early acuteHCV infection. 04/19/2023 9:01 AM EDT 04/19/2023 11:20 AM EDT us Sisi Hyatt MD LAB BLOOD ORDERABLES Final Result Performing Organization Address City/[facility]/ZIP Co de Phone Number [facility] [address] [place] [address] [phone] * T4, Free (04/19/2023 9:01 AM EDT) Free T4 (Free Thyroxine) 1.05 0.71 - 1.85 ng/dL [facility] 04/19/2023 9:01 AM EDT 04/19/2023 11:20 AM EDT Sisi Hyatt MD LAB BLOOD ORDERABLES Final Result Performing Organization Address [facility] Co de Phone Number [facility] [address] [place] [address] [phone] documented in this encounter Visit Diagnoses Not on filedocumented in this encounter Additional Health Concerns Assessment Noted Time PHQ-9 Depression Total Score: 0 03/06/20 23 2:17 PM EDT documented as of this encounter Care Teams School Traffic Guard Relationship Specialty Start Date End Date Sisi Hyatt MD [address] [place] [address] PCP - General Family Medicine 09/23/18 Cinda Johnson, JoelD [address] [place] [address] Pharmacist Internal Medicine 06/08/24 Fabio Florian [address] [place] [address] Pulmonary Disease 08/12/24 Jose M King MD [address] [place] [address] Nephrology 09/02/24 documented as of this encounter
--- OUTSIDE RECORDS SUMMARY | 2025-06-07 18:47 | XMS_ITS | Clinical Summary ---
Author Organization [employer] Address [address] [place] [address] Care Team Providers Care Leather Whitener Name Role Phone Sisi Hyatt MD Primary Care Provider +- [phone] Cinda Johnson PharmD Unavailable Fabio Florian Unavailable Jose M King MD Unavailable Allergies No known active allergies Medications * This document contains information received from the source organization and may not represent a complete record from that organization. Umeclidinium [place] (Incruse Ellipta) 62.5 MCG/ACT aerosol powderIndications :Chronic [...] AFTER USING. 36 g 3 4 Active lisinopril 20 MG tabletIndications :Essential hypertension Take by mouth Once per day. Active albuterol (Ventolin HFA) 108 (90 Base) MCG/ACT inhalerIndication s:Chronic obstructive pulmonary disease, unspecified COPD type (CMS/HCC) INHALE 2 PUFFS BY MOUTH EVERY 4 HOURS NEEDED FOR WHEEZING OR SHORTNESS OF BREATH 18 g 11 5 Active levothyroxine (Synthroid, Levoxyl) 175 MCG tabletIndications :Hypothyroidism, unspecified type TAKE 1 TABLET BY MOUTH EVERY DAY 90 tablet 1 5 Active Melatonin 3 MG tablet dispersibleIndica tions:Insomnia, unspecified type Take 1 tablet (3 mg) by mouth if needed at bedtime (insomnia). 30 tablet 3 5 Active Active Problems Patient Care Coordination No te Formatting of this note migh t be different from the original. [facility] [place] Automotive Engineer: Angela member services number [phone], provider services line, , option 4 [employer] Agency: closed Problem Noted Date Diagnosed Date Recurrent major depressive disorder 05/05/2025 Cardiac risk counseling 08/18/2024 Overview (11/25/2024): Calculated [...] months. Ex-smoker 05/27/2024 Homelessness 05/27/2024 Overview (11/25/2024): -[facility] referral placed 05/27/24. -still having housing proles. Living with his sister currently. -re-referred to [facility] 11/25/24 Assessment & Plan (11/25/2024 2:30 PM EST): -[facility] referral placed 05/27/24. -still having housing proles. Living with his sister currently. -re-referred to [facility] 11/25/24 Assessment & Plan (06/08/2024 10:49 AM EDT): During IB Consult Sean presenting with depressed mood, hopelessness, [...] and protective factors. Pt is connected with [facility] / Care Teams. Recommendations made around reaching out to coordinator with [facility] to assist w housing problem. Pt declined referral with for SDOH and OP therapy. clinician will follow-up during next medical appointment to assess progress and offer additional support if needed. Assessment & Plan (05/27/2024 11:18 AM EDT): -SDOH referral placed 05/27/24 Other specified health status 03/06/2023 Overview (05/27/2024): -Next physical exam due 05/27/25 -Eye referral to [facility] Eye Care done 03/06/2023. -Dental strongly encouraged. -Health care proxy given and filed 05/27/24 Assessment & Plan (05/27/2024 10:57 AM EDT): -Next physical exam due 05/27/25 -Eye referral to [facility] Eye Care done 03/06/2023. -Dental strongly encouraged. -Health care proxy given and filed 05/27/24 Assessment & Plan (03/06/2023 3:07 PM EDT): Next PE due 03/06/2024. -Eye referral done 03/06/2023. -Dental strongly encouraged. Chronic obstructive lung disease 03/20/2022 Overview (05/05/2025): - PFTs 03/01/14 revealed severe obstructive airway [...] Pulmonology to enquire about Pulmonology rehab therapy. -placed order for walking O2 SAT and PFT's 11/2024. -given number to call for above tests 05/05/25 Assessment & Plan (05/05/2025 10:52 AM EDT): - PFTs 03/01/14 revealed severe [...] Pulmonology to enquire about Pulmonology rehab therapy. -placed order for walking O2 SAT and PFT's 11/2024. -given number to call for above tests 05/05/25 Assessment & Plan (11/25/2024 2:25 PM EST): [...] -continue Advair bid -contnue albuterol prn -Saw Director Of Analytics Oct 2024, will request note. Today, 11/25/24, [...] done 03/06/2023. Focal segmental glomerulosclerosis 03/20/2022 Overview (04/02/2025): -mild CKD, history proteinuria and hypertension -known [...] have been explained in detail. -note from 04/02/[address] Salguero Assessment & Plan [...] any anti-depressant at this time. -referred to [facility] 11/25/24 Assessment & Plan (12/08/2024 9:20 AM EDT): During IBH Consult Sean presenting with depressed mood, Tearful, [...] provide additional support. Provided information to contact [facility] if sooner appointment is needed. Assessment & Plan (11/25/2024 2:29 PM EST): -PHQ9 was positive 05/27/24 and 11/25/24. -not taking any anti-depressant at this time. -referred to N 11/25/24 Assessment & Plan (06/08/2024 10:48 AM [...] and protective factors. Pt is connected with [facility] / Care Teams. Recommendations made around reaching out to coordinator with [facility] to assist w housing problem. Pt declined [...] Collaborative Drug Therapy Managment Program with our PharmCARLOS MANUEL MartinezES -given BP monitor to monitor at home. -Amlodipine 5mg started at last PCP visit 05/27/24 however patient seen in [facility] after and denies having started medication yet; was seen by nephrology team 06/03/24 and lisinopril increased to 20mg once daily without inclusion of amlodipine in plan. [facility] instructed patient to HOLD amlodipine and start lisinopril 20mg once daily Assessment & Plan (05/05/2025 10:52 AM EDT): -Blood pressure is at goal -Continue lifestyle modifications -follows with Collaborative Drug Therapy Managment Program with our PharmCARLOS MANUEL MartinezES -given BP monitor to monitor at home. -Amlodipine 5mg started at last PCP visit 05/27/24 however patient seen in [facility] after and denies having started medication yet; was seen by nephrology team 06/03/24 and lisinopril increased to 20mg once daily without inclusion of amlodipine in plan. [facility] instructed patient to HOLD amlodipine and start lisinopril 20mg once daily Assessment & Plan (11/25/2024 2:23 PM EST): -Blood pressure is at goal -Continue lifestyle modifications -follows with Collaborative Drug Therapy Managment Program with our Vashti CDCBALJEET -given BP monitor to monitor at home. -Amlodipine 5mg started at last PCP visit 05/27/24 however patient seen in [facility] after and denies having started medication yet; was seen by nephrology team 06/03/24 and lisinopril increased to 20mg once daily without inclusion of amlodipine in plan. [facility] instructed patient to HOLD amlodipine and start [...] organization. Date Type Department Care Team Description 05/05/2025 9:30 AM EDT Office Visit [facility] [address] [place] [phone] Sisi Hyatt MD Essential hypertension (Primary Dx); Chronic obstructive pulmonary disease, unspecified COPD type (CMS/HCC); Positive depression screening; Insomnia, unspecified type 05/05/2025 Travel 05/04/2025 Telephone [facility] [address] [place] [address] Sisi Hyatt MD CHART PREP 03/31/2025 Orders Only GENERIC EXTERNAL DATA DEPARTMENT Provider, Generic External Data 03/29/2025 Refill [facility] MED & PEDS [address] [place] [address] Sisi Hyatt MD Hypothyroidism, unspecified type from Last 3 Months Immunizations Immunization Administration Dates Next Due Hep A, Adult [...] Answer Date Recorded Patient Health Questionnaire-9 Score 15 05/05/2025 Patient Health Questionnaire-9 Score 15 05/05/2025 Last PHQ-9: Questionnaire Data Not on file 0 05/05/2025 Housing Stability Answer Date Recorded What is your housing situation today? I do not have housing (Staying with others, in a hotel, in a mcfp, living outside on the street, on a [...] Date Recorded Patient Health Questionnaire-2 Score 5 05/05/2025 Internet Access Answer Date Recorded Internet Access [...] Sign Reading Time Taken Comments Blood Pressure 120/84 05/05/2025 9:49 AM EDT Pulse 86 05/05/2025 9:20 AM EDT Temperature 37.2 C (98.9 F) 05/05/2025 9:20 AM EDT Respiratory Rate 20 05/05/2025 9:20 AM EDT Oxygen Saturation 98% 05/05/2025 9:20 AM EDT Inhaled Oxygen Concentration - - Weight 63.4 kg (139 lb 12.8 oz) 05/05/2025 9:20 AM EDT Height 174 cm (5' 8.5 ) 05/05/2025 9:20 AM EDT Body Mass Index 20.95 05/05/2025 9:20 AM EDT Plan of Treatment Health Maintenance Due Date Last Done Comments CT Colonography 1963 FIT DNA/Cologuard 1963 FIT 1963 FOBT 1963 Sigmoidoscopy 1963 Zoster Vaccines (1 of 2) 2013 RSV Patients and Patients Aged 60 years or older (1 - Risk 60-74 years 1-dose series) 2023 COVID-19 Vaccine (2 - season) 2025 12/20/2021 Influenza Vaccine (#1) 2025 , 07/30/2019, 06/26/2018, Additional history exists Depression Monitoring 11/05/2025 05/05/2025, 025 SDOH Screening 11/17/2025 11/17/2024 Disability Screening 11/24/2025 11/24/2024 Alcohol/Substance Use Screening 11/25/2025 11/25/2024 Tobacco Screening 05/05/2026 05/05/2025 Colonoscopy 01/13/2027 01/14/2024, 05/04/2014 Colorectal Cancer Screening 01/13/2027 Lipid Panel 08/25/2029 08/25/2024, 0903/2024, 04/19/2023 DTaP/Tdap/Td Vaccines (3 - Td or Tdap) 05/27/2034 05/27/2024, 01/28/2014, 10/16/2006 Hepatitis B Vaccines Completed 05/16/2007, 01/14/2007, 12/12/2006 Hepatitis A Vaccines Aged Out 07/30/2019, 06/29/20 08 No longer eligible based on patient's age to complete this topic Pneumococcal Vaccine: 50+ Years Completed 03/06/2023, 01/28/2014, 10/31/2006 HIV Screening Completed 04/19/2023, 10/07/2018 Hepatitis C Screening Completed 04/19/2023 , 10/07/2018, 10/07/2018 HIB Vaccines Aged Out No longer eligi ble based on patient's age to complete this topic HPV Vaccines Aged Out No longer eligi ble based on patient's age to complete this topic IPV Vaccines Aged Out No longer eligi ble based on patient's age to complete this topic Meningococcal B Vaccine Aged Out No l onger eligible based on patient's age to complete [...] Procedure Name Priority Date/Time Associated Diagnosis Comments PROTEIN CREATININE RATIO, URINE Routine 03/31/2025 12:04 PM EDT CREATININE, SERUM Routine 03/31/2025 12: 04 PM EDT UREA NITROGEN (BUN) Routine 03/31/2025 1 2:04 PM EDT ELECTROLYTE PANEL Routine 03/31/2025 12: 04 PM EDT LIPID PANEL, STANDARD Routine 08/25/2024 9:20 AM EST HM COLONOSCOPY Routine 01/14/2024 HEPATITIS C ANTIBODY REFLEX Routine 04/19/2023 9:01 AM EDT HIV ANTIBODY/ANTIGEN ([place] DPH) Routine 04/19/2023 9:01 AM EDT from Last 3 Months or Most Recently Relevant to Health Maintenance Results * (ABNORMAL) Protein Creatinine Ratio, Urine (03/31/2025 12:04 PM EDT) Creatinine, Urine 195.38 mg/dL [facility] Protein, Total, Random Urine 72(H) <12 mg/dL [facility] Protein/Creati nine Ratio, Ur 0.37(H) <0.2 [facility] Comment:The spot urine prote in:creatinine ratio may increase to 0.3during normal . 03/31/2025 12:0 4 PM EDT 03/31/2025 3:55 PM EDT us Generic External Data Provider LAB URINE ORDERAB LES Final Result [facility] [address] [place] [address] [phone] * Creatinine, Serum (03/31/2025 12:04 PM EDT) Creatinine, Serum 1.19 0.5 - 1.4 mg/dL [facility] Estimated Glomerular Filt Rate >60 [facility] Comment:Chronic Kidney Disea se: Estimated GFR < 60 mL/min/[id number] Kidney Disease: Estimated GFR < 15 mL/min/1.73m2 03/31/2025 12:0 4 PM EDT 03/31/2025 4:25 PM EDT Generic External Data Provider LAB BLOOD ORDERAB LES Final Result Performing Organization Address [facility] Phone Number [facility] [address] [place] [phone] * BUN (Blood Urea Nitrogen) (03/31/2025 12:04 PM EDT) Urea Nitrogen (BUN) 11 9 - 16 mg/dL [facility] 03/31/2025 12:0 4 PM EDT 03/31/2025 4:25 PM EDT Generic External Data Provider LAB BLOOD ORDERAB LES Final Result Performing Organization Address [facility] Phone Number [facility] [address] [place] [phone] * (ABNORMAL) Electrolyte Panel (03/31/2025 12:04 PM EDT) Sodium 140 135 - 145 mmol/L [facility] Potassium 4.2 3.3 - 5.1 mmol/L [facility] Chloride 104 96 - 108 mmol/L [facility] Carbon Dioxide 30(H) 22 - 29 mmol/L [facility] Anion Gap 10(L) 12 - 20 [facility] 03/31/2025 12:0 4 PM EDT 03/31/2025 4:25 PM EDT Generic External Data Provider LAB BLOOD ORDERAB LES Final Result Performing Organization Address [facility] Co de Phone Number [facility] [address] [place] [phone] * (ABNORMAL) Lipid Panel, Standard (08/25/2024 9:20 AM EST) Triglycerides 136 <150 mg/dL [facility] Comment:Desirable Triglyceri de: less than 150 mg/dLBorderline High Triglyceride 150-199 mg/dLHigh Triglyceride: 200-499 mg/dLVery High Triglyceride: greater than or equal to 5OO mg/dL Cholesterol 195 <200 mg/dL [facility] Comment:Desirable Cholestero l: less than 200 mg/dLBorderline High Cholesterol: 200-239 mg/dLHigh Cholesterol: greater than 239 mg/dL LDL Cholesterol Calculated 120(H) <100 mg/dL [facility] Comment:Desirable LDL: less than 100 mg/dLNear Optimal/Above Optimal LDL: 110- 129 mg/dLBorderline High LDL: 130-159 mg/dLHigh LDL: 160-189 mg/dLVery High LDL: greater than or equal to 190 mg/dL HDL Cholesterol 48 >40 mg/dL [facility] Comment:Desirable HDL: great er than 40 mg/dL Note: This HDL assay may give artificially low results in patients with liver disease. 08/25/2024 9:20 AM EST 08/25/2024 11:31 AM EST Sisi Hyatt MD LAB BLOOD ORDERABLES Final Result [facility] [address] [place] [phone] * (ABNORMAL) Colonoscopy (01/14/2024) Colonoscopy Abnormal( A) Normal Comment:7 polypswith Rigoberto Holbrook MD Jean-Pierre Provider HEALTH MAINTENANCE Final Result * Hepatitis C Antibody Reflex (04/19/2023 9:01 AM EDT) Hepatitis C Antibody Nonreactive Nonreactive [facility] Comment:Antibodies to HCV no t detected; does not exclude early acuteHCV infection. 04/19/2023 9:01 AM EDT 04/19/2023 11:20 AM EDT Sisi Hyatt MD LAB BLOOD ORDERABLES Final Result Performing Organization Address City/[facility]/ZIP Co de Phone Number [facility] [address] [place] [address] [phone] * HIV Ab/Ag (MICHAEL HUDDLESTON) (04/19/2023 9:01 AM EDT) HIV AB/AG Nonreactive Nonreactive [facility] Comment:HIV-1 p24 Ag and/or HIV-1/HIV-2 Ab not detected.A test result that is nonreactive does not exclude thepossibility of exposure to or infection with HIV-1 and/orHIV-2. Nonreactive results in this assay for individualswith prior exposure to HIV-1 and/or HIV-2 may be due toantigen and antibody levels that are below the limit ofdetection of this assay.[employer] Hand HIV Ag/Ab Combo assay result andsupplemental assay results should be interpreted inconjunction with the patient's clinical presentation,history and other laboratory results. If the results areinconsistent with clinical evidence, additional testing issuggested to confirm the result. 04/19/2023 9:01 AM EDT 04/19/2023 11:20 AM EDT Sisi Hyatt MD LAB BLOOD ORDERABLES Final Result Performing Organization Address City/[facility] Co de Phone Number [facility] [address] [place] [phone] from Last 3 Months or Most Recently Relevant to Health Maintenance Insurance [facility] ONE CARE < 65 Advance Directives Documents on File Type Date Recorded Patient Shagger Expl anation Advance Directives and Living Will 05/28/2024 1:00 PM Health Care Proxy Care Teams Leather Whitener Relationship Specialty Start Date End Date [place], MD Sisi [address] [place] [address] PCP - General Family Medicine 09/23/18 Cinda Johnson PharmD [address] [place] [address] Pharmacist Internal Medicine 06/08/24 Fabio Florian [address] [place] [address] Pulmonary Disease 08/12/24 Jose M King MD [address] [place] [address] Nephrology 09/02/24
== END 2025-06-07 14:25 | disposition home or self-care (01) ==
LOC: HO.HPS 13:33
PROVIDERS: PCP Family Medicine; Visit Provider Internal Medicine
DX: J44.9 Chronic obstructive pulmonary disease, unspecified (principal); Z87.891 Personal history of nicotine dependence
CPT/HCPCS: 94010; 99213

== ENCOUNTER → 2025-06-07 13:33 | Outpatient (BNVA) | payer OTHER, SELFPAY | PROVIDERS: PCP Family Medicine; Visit Provider Internal Medicine | DX: J44.9 Chronic obstructive pulmonary disease, unspecified (principal); Z87.891 Personal history of nicotine dependence | CPT/HCPCS: 94010; 99212 ==

== ENCOUNTER 2025-08-16 13:29 | Outpatient (REF) | payer OTHER, SELFPAY ==
[2025-08-16 16:54] LABS: Anion Gap 12 (12-20); Blood Urea Nitrogen 8 mg/dL (9-16); Calcium 9.3 mg/dL (8.4-10.2); Carbon Dioxide 28 mmol/L (22-29); Chloride 107 mmol/L (96-108); Estimated Glomerular Filt Rate > 60; Potassium 4.1 mmol/L (3.3-5.1); Sodium 143 mmol/L (135-145)
[2025-08-16 17:22] LABS: Protein/Creatinine Ratio, Ur 0.80 (<0.2); Total Protein Urine Random 127 mg/dL (<12)
--- OUTSIDE RECORDS SUMMARY | 2025-08-16 18:13 | XMS_ITS | Encounter Summary ---
Author Organization [employer] Address [address] [place] [address] Care Team Providers Care Registrar Assistant Name Role Phone Sisi Hyatt MD Primary Care Provider +1- [phone] Cinda Johnson PharmD Unavailable Fabio Florian Unavailable Jose M King MD Unavailable Encounter Details Date Type Department Care Team (Late st Contact Info) Description 10/23/[address] [facility] [address] [place] [address] Sisi Hyatt MD [address] [place], [place] [phone] Social History Tobacco Use Types Packs/Day Years [...] on filedocumented in this encounter Care Teams Registrar Assistant Relationship Specialty Start Date End Date [place], Sisi, MD [address] [place] [address] PCP - General Family Medicine 09/23/18 Cinda Johnson PharmD [address] [place] [address] Pharmacist Internal Medicine 06/08/24 Fabio Florian [address] [place] [address] Pulmonary Disease 08/12/24 Jose M King MD [address] [place] [address] Nephrology 09/02/24 documented as of this encounter
--- OUTSIDE RECORDS SUMMARY | 2025-08-16 18:13 | XMS_ITS | Encounter Summary ---
Author Organization [employer] Address [address] [place] [address] Care Team Providers Care Transportation Superintendent Name Role Phone Sisi Hyatt MD Primary Care Provider +1- [phone] Cinda Johnson PharmD Unavailable Fabio Florian Unavailable Jose M King MD Unavailable Encounter Details Date Type Department Care Team (Late st Contact Info) Description 03/13/2023 Orders Only [facility] [address] [place] [address] Sisi Hyatt MD [address] [place], [place] [phone] Social History Tobacco Use Types Packs/Day Years [...] 9:01 AM EDT) HIV AB/AG Nonreactive Nonreactive [facility] Comment:HIV-1 p24 Ag and/or HIV-1/HIV-2 Ab not detected.A test result that is nonreactive does not exclude thepossibility of exposure to or infection with HIV-1 and/orHIV-2. Nonreactive results in this assay for individualswith prior exposure to HIV-1 and/or HIV-2 may be due toantigen and antibody levels that are below the limit ofdetection of this assay.[employer] Designer HIV Ag/Ab Combo assay result andsupplemental assay results should be interpreted inconjunction with the patient's clinical presentation,history and other laboratory results. If the results areinconsistent with clinical evidence, additional testing issuggested to confirm the result. 04/19/2023 9:01 AM EDT 04/19/2023 11:20 AM EDT Sisi Hyatt MD LAB BLOOD ORDERABLES Final Result [facility] [address] [place] [address] [phone] * Hepatitis C Antibody Reflex (04/19/2023 9:01 AM EDT) Hepatitis C Antibody Nonreactive Nonreactive [facility] Comment:Antibodies to HCV no t detected; does not exclude early acuteHCV infection. 04/19/2023 9:01 AM EDT 04/19/2023 11:20 AM EDT us Sisi Hyatt MD LAB BLOOD ORDERABLES Final Result Performing Organization Address City/[facility]/ZIP Co de Phone Number [facility] [address] [place] [address] [phone] * T4, Free (04/19/2023 9:01 AM EDT) Free T4 (Free Thyroxine) 1.05 0.71 - 1.85 ng/dL [facility] 04/19/2023 9:01 AM EDT 04/19/2023 11:20 AM EDT Sisi Hyatt MD LAB BLOOD ORDERABLES Final Result Performing Organization Address [facility] Co de Phone Number [facility] [address] [place] [address] [phone] documented in this encounter Visit Diagnoses Not on filedocumented in this encounter Additional Health Concerns Assessment Noted Time PHQ-9 Depression Total Score: 0 03/06/20 23 2:17 PM EDT documented as of this encounter Care Teams Transportation Superintendent Relationship Specialty Start Date End Date Sisi Hyatt MD [address] [place] [address] PCP - General Family Medicine 09/23/18 Cinda Johnson, JoelD [address] [place] [address] Pharmacist Internal Medicine 06/08/24 Fabio Florian [address] [place] [address] Pulmonary Disease 08/12/24 Jose M King MD [address] [place] [address] Nephrology 09/02/24 documented as of this encounter
--- OUTSIDE RECORDS SUMMARY | 2025-08-16 18:13 | XMS_ITS | Encounter Summary ---
Author Organization [employer] Address [address] [facility] 7t [place] [address] Care Team Providers Care Printed Circuit Boards Plasma Etcher Name Role Phone Sisi Hyatt MD Primary Care Provider +- [phone] Cinda Johnson PharmD Unavailable Fabio Florian Unavailable Jose M King MD Unavailable Encounter Details Date Type Department Care Team (Late st Contact Info) Description 08/16/2025 Orders Only GENERIC EXTERNAL DATA DEPARTMENT Provider, Generic External Data Social History Tobacco Use Types Packs/Day Years [...] Procedure Name Priority Date/Time Associated Diagnosis Comments CREATININE, SERUM Routine 08/16/2025 1:4 6 PM EST UREA NITROGEN (BUN) Routine 08/16/2025 1 :46 PM EST CALCIUM Routine 08/16/2025 1:46 PM EST ELECTROLYTE PANEL Routine 08/16/2025 1:4 6 PM EST PROTEIN CREATININE RATIO, URINE Routine 08/16/2025 1:37 PM EST documented in this encounter Results * Calcium (08/16/2025 1:46 PM EST) Calcium 9.3 8.4 - 10.2 mg/dL [facility] 08/16/2025 1:46 PM EST 08/16/2025 1:46 PM EST us Generic External Data Provider LAB BLOOD ORDERAB LES Final Result [facility] [address] [place] [address] [phone] * Creatinine, Serum (08/16/2025 1:46 PM EST) Creatinine, Serum 1.16 0.5 - 1.4 mg/dL [facility] Estimated Glomerular Filt Rate >60 [facility] Comment:Chronic Kidney Disea se: Estimated GFR < 60 mL/min/[id number] Kidney Disease: Estimated GFR < 15 mL/min/1.73m2 08/16/2025 1:46 PM EST 08/16/2025 1:46 PM EST us Generic External Data Provider LAB BLOOD ORDERAB LES Final Result Performing Organization Address [facility] Co de Phone Number [facility] [address] [place] [phone] * (ABNORMAL) BUN (Blood Urea Nitrogen) (08/16/2025 1:46 PM EST) Urea Nitrogen (BUN) 8(L) 9 - 16 mg/dL [facility] 08/16/2025 1:46 PM EST 08/16/2025 1:46 PM EST Generic External Data Provider LAB BLOOD ORDERAB LES Final Result Performing Organization Address [facility] Co de Phone Number [facility] [address] [place] [phone] * Electrolyte Panel (08/16/2025 1:46 PM EST) Sodium 143 135 - 145 mmol/L [facility] Potassium 4.1 3.3 - 5.1 mmol/L [facility] Chloride 107 96 - 108 mmol/L [facility] Carbon Dioxide 28 22 - 29 mmol/L [facility] Anion Gap 12 12 - 20 [facility] 08/16/2025 1:46 PM EST 08/16/2025 1:46 PM EST Generic External Data Provider LAB BLOOD ORDERAB LES Final Result Performing Organization Address City/[facility] Co de Phone Number [facility] [address] [place] [address] [phone] * (ABNORMAL) Protein Creatinine Ratio, Urine (08/16/2025 1:37 PM EST) Creatinine, Urine 158.40 mg/dL [facility] Protein, Total, Random Urine 127(H) <12 mg/dL [facility] Protein/Creati nine Ratio, Ur 0.80(H) <0.2 [facility] Comment:The spot urine prote in:creatinine ratio may increase to 0.3during normal . 08/16/2025 1:37 PM EST 08/16/2025 2:46 PM EST us Generic External Data Provider LAB URINE ORDERAB LES Final Result Performing Organization Address [facility] Co de Phone Number [facility] [address] [place] [address] [phone] documented in this encounter Visit Diagnoses Not on filedocumented in this encounter Additional Health Concerns Assessment Noted Time PHQ-9 Depression Total Score: 15 025 9:53 AM EDT documented as of this encounter Care Teams Printed Circuit Boards Plasma Etcher Relationship Specialty Start Date End Date Sisi Hyatt MD [address] [place] [address] PCP - General Family Medicine 09/23/18 Cinda Johnson, Vashti [address] [place] [phone] Pharmacist Internal Medicine 06/08/24 Fabio Florian [address] [place] [address] Pulmonary Disease 08/12/24 Jose M King MD [address] [place] [address] Nephrology 09/02/24 documented as of this encounter
--- OUTSIDE RECORDS SUMMARY | 2025-08-16 18:13 | XMS_ITS | Clinical Summary ---
Author Organization [employer] Address [address] [facility] 7[address] [place] [address] Care Team Providers Care Dramatic Teacher Name Role Phone Sisi Hyatt MD Primary Care Provider +- [phone] Cinda Johnson PharmD Unavailable Fabio Florian Unavailable Jose M King MD Unavailable Allergies No known active allergies Medications * This document contains information received from the source organization and may not represent a complete record from that organization. Umeclidinium Mcgregor (Incruse Ellipta) 62.5 MCG/ACT aerosol powderIndications :Chronic obstructive pulmonary disease, unspecified COPD type (CMS/HCC) (HCC) Inhale 62.5 mcg Once per day. 1 each 11 4 Active Blood Pressure kitIndications:Es sential hypertension Use 3 times a week, dx htn 1 kit 4 Active Advair HFA 230-21 MCG/ACT inhalerIndication s:Chronic obstructive pulmonary disease, unspecified COPD type (CMS/HCC) (HCC) INHALE 2 PUFFS BY MOUTH TWICE DAILY RINSE MOUTH AFTER USING. 36 g 3 4 Active lisinopril 20 MG tabletIndications :Essential hypertension Take by mouth Once per day. Active albuterol (Ventolin HFA) 108 (90 Base) MCG/ACT inhalerIndication s:Chronic obstructive pulmonary disease, unspecified COPD type (CMS/HCC) (HCC) INHALE 2 PUFFS BY MOUTH EVERY 4 [...] migh t be different from the original. [facility] Motorboat Operator: Angela, member services number [phone], provider services line, , option 4 Insurance Risk Manager Agency: closed Problem Noted Date Diagnosed Date [...] months. Ex-smoker 05/27/2024 Homelessness 05/27/2024 Overview (11/25/2024): -[facility] referral placed 05/27/24. -still having housing proles. Living with his sister currently. -re-referred to [facility] 11/25/24 Assessment & Plan (11/25/2024 2:30 PM EST): -[facility] referral placed 05/27/24. -still having housing proles. Living with his sister currently. -re-referred to [facility] 11/25/24 Assessment & Plan (06/08/2024 10:49 [...] factors. Pt is connected with [facility] / Care Teams. Recommendations made around reaching out to coordinator with [facility] to assist w housing problem. Pt declined referral with for SDOH and OP therapy. clinician will follow-up during next medical appointment to assess progress and offer additional support if needed. Assessment & Plan (05/27/2024 11:18 AM EDT): -SDOH referral placed 05/27/24 Other specified health status 03/06/2023 Overview (05/27/2024): -Next physical exam due 05/27/25 -Eye referral to [facility] Eye Care done 03/06/2023. -Dental strongly encouraged. -Health care proxy given and filed 05/27/24 Assessment & Plan (05/27/2024 10:57 AM EDT): -Next physical exam due 05/27/25 -Eye referral to [facility] Eye Care done 03/06/2023. -Dental strongly encouraged. -Health care proxy given and filed 05/27/24 Assessment & Plan (03/06/2023 3:07 PM EDT): Next PE due 03/06/2024. -Eye referral done 03/06/2023. -Dental strongly encouraged. Chronic obstructive lung disease 03/20/2022 Overview (06/10/2025): - PFTs 03/01/14 revealed severe obstructive airway [...] number to call for above tests 05/05/25 -seen by Dr. Florian 06/07/25 continue current meds Assessment & Plan (05/05/2025 10:52 AM EDT): [...] -continue Advair bid -contnue albuterol prn -Saw Senior Production Supervisor Oct 2024, will request note. Today, 11/25/24, [...] in the future. - Pt self d/c Abiodun for concern of ED - MA/Cr ration [...] in the future. - Pt self d/c [facility] for concern of ED - lisinopril decreased [...] any anti-depressant at this time. -referred to [facility] 11/25/24 Assessment & Plan (12/08/2024 9:20 AM [...] provide additional support. Provided information to contact [facility] if sooner appointment is needed. [...] factors. Pt is connected with [facility] / Care Teams. Recommendations made around reaching out to coordinator with [facility] to assist w housing problem. Pt declined [...] PCP visit 05/27/24 however patient seen in [facility] after and denies having started medication yet; was seen by nephrology team 06/03/24 and lisinopril increased to 20mg once daily without inclusion of amlodipine in plan. [facility] instructed patient to HOLD amlodipine and start lisinopril 20mg once daily Assessment & Plan (05/05/2025 10:52 AM EDT): -Blood pressure is at goal -Continue lifestyle modifications -follows with [facility] with our [facility] -given BP monitor to monitor at home. -Amlodipine 5mg started at last PCP visit 05/27/24 however patient seen in [facility] after and denies having started medication yet; was seen by nephrology team 06/03/24 and lisinopril increased to 20mg once daily without inclusion of amlodipine in plan. [facility] instructed patient to HOLD amlodipine and start lisinopril 20mg once daily Assessment & Plan (11/25/2024 2:23 PM EST): -Blood pressure is at goal -Continue lifestyle modifications -follows with [facility] with our [facility] [place] -given BP monitor to monitor at home. -Amlodipine 5mg started at last PCP visit 05/27/24 however patient seen in [facility] after and denies having started medication yet; was seen by nephrology team 06/03/24 and lisinopril increased to 20mg once daily without inclusion of amlodipine in plan. [facility] instructed patient to HOLD amlodipine and [...] polyps 05/27/2024 10/07/2024 Osteomyelitis of finger of r ight hand ([facility]) 03/06/2023 10/30/2023 Overview (03/06/2023): Right thumb. Assessment & Plan (03/06/2023 2:46 PM EDT): Right thumb. Tobacco dependence syndrome 07/15/2014 10/07/2024 Proteinuria 01/28/2014 10/07/2024 Overview (05/27/2024): -ordered albumin urine w/ creatinine 05/27/24 Assessment & Plan (05/27/2024 11:06 AM EDT): -ordered albumin urine w/ creatinine 05/27/24 Encounters Date Type Department Care Team Description 08/16/2025 Orders Only GENERIC EXTERNAL DATA DEPARTMENT Provider, Generic External Data from Last 3 Months Immunizations Immunization Administration [...] with others, in a hotel, in a snf, living outside on the street, on a [...] 1963 FIT 1963 FOBT 1963 Sigmoidoscopy 1963 RSV Patients and Patients Aged 60 years or older (1 - Risk 50-74 years 1-dose series) 2013 Zoster Vaccines (1 of 2) 2013 COVID-19 Vaccine (2 - season) 2025 12/20/2021 Influenza Vaccine (#1) 2025 , 07/30/2019, 06/26/2018, Additional history exists Depression Monitoring 11/05/2025 05/05/2025, 025 SDOH Screening 11/17/2025 11/17/2024 Disability Screening 11/24/2025 11/24/2024 Alcohol/Substance Use Screening 11/25/2025 11/25/2024 Tobacco Screening 06/10/2026 06/10/2025 Colonoscopy 01/13/2027 01/14/2024, 05/04/2014 Colorectal Cancer Screening [...] this topic Meningococcal Vaccine Aged Out No greame ankush eligible based on patient's age to complete this topic RSV under 20 months Aged Out No longe r eligible based on patient's age to complete this topic Rotavirus Vaccines Aged Out No longer eligible based on patient's age to complete this topic Procedures Procedure Name Priority Date/Time Associated Diagnosis Comments CALCIUM Routine 08/16/2025 1:46 PM EST CREATININE, SERUM Routine 08/16/2025 1:4 6 PM EST UREA NITROGEN (BUN) Routine 08/16/2025 1 :46 PM EST ELECTROLYTE PANEL Routine 08/16/2025 1:4 6 PM EST PROTEIN CREATININE RATIO, URINE Routine 08/16/2025 1:37 PM EST LIPID PANEL, STANDARD Routine 08/25/2024 9:20 AM EST HM COLONOSCOPY Routine 01/14/2024 HEPATITIS C ANTIBODY REFLEX Routine 04/19/2023 9:01 AM EDT HIV ANTIBODY/ANTIGEN ([facility]) Routine 04/19/2023 9:01 AM EDT from Last 3 Months or Most Recently Relevant to Health Maintenance Results * Creatinine, Serum (08/16/2025 1:46 PM EST) Creatinine, Serum 1.16 0.5 - 1.4 mg/dL [facility] Estimated Glomerular Filt Rate >60 [facility] Comment:Chronic Kidney Disea se: Estimated GFR < 60 mL/min/[id number] Kidney Disease: Estimated GFR < 15 mL/min/1.73m2 08/16/2025 1:46 PM EST 08/16/2025 1:46 PM EST us Generic External Data Provider LAB BLOOD ORDERAB LES Final Result [facility] [address] [place] [phone] * (ABNORMAL) BUN (Blood Urea Nitrogen) (08/16/2025 1:46 PM EST) Urea Nitrogen (BUN) 8(L) 9 - 16 mg/dL [facility] 08/16/2025 1:46 PM EST 08/16/2025 1:46 PM EST us Generic External Data Provider LAB BLOOD ORDERAB LES Final Result Performing Organization Address City/[facility]/ZIP Co de Phone Number [facility] [address] [place] [phone] * Calcium (08/16/2025 1:46 PM EST) Calcium 9.3 8.4 - 10.2 mg/dL [facility] 08/16/2025 1:46 PM EST 08/16/2025 1:46 PM EST Generic External Data Provider LAB BLOOD ORDERAB LES Final Result Performing Organization Address [facility] de Phone Number [facility] [address] [place] [phone] * Electrolyte Panel (08/16/2025 1:46 PM EST) Sodium 143 135 - 145 mmol/L [facility] Potassium 4.1 3.3 - 5.1 mmol/L [facility] Chloride 107 96 - 108 mmol/L [facility] Carbon Dioxide 28 22 - 29 mmol/L [facility] Anion Gap 12 12 - 20 [facility] 08/16/2025 1:46 PM EST 08/16/2025 1:46 PM EST Generic External Data Provider LAB BLOOD ORDERAB LES Final Result Performing Organization Address [facility] Phone Number [facility] [address] [place] [phone] * (ABNORMAL) Protein Creatinine Ratio, Urine (08/16/2025 1:37 PM EST) Creatinine, Urine 158.40 mg/dL [facility] Protein, Total, Random Urine 127(H) <12 mg/dL [facility] Protein/Creati nine Ratio, Ur 0.80(H) <0.2 [facility] Comment:The spot urine prote in:creatinine ratio may increase to 0.3during normal . 08/16/2025 1:37 PM EST 08/16/2025 2:46 PM EST Generic External Data Provider LAB URINE ORDERAB LES Final Result Performing Organization Address [facility] Co de Phone Number [facility] [address] [place] [phone] * (ABNORMAL) Lipid Panel, Standard (08/25/2024 9:20 AM EST) Triglycerides 136 <150 mg/dL [facility] Comment:Desirable Triglyceri de: less than 150 mg/dLBorderline High Triglyceride 150-199 mg/dLHigh Triglyceride: 200-499 mg/dLVery High Triglyceride: greater than or equal to 5OO mg/dL Cholesterol 195 <200 mg/dL [facility] Comment:Desirable Cholestero l: less than 200 mg/dLBorderline High Cholesterol: 200-239 mg/dLHigh Cholesterol: greater than 239 mg/dL LDL Cholesterol Calculated 120(H) <100 mg/dL [facility] Comment:Desirable LDL: less than 100 mg/dLNear Optimal/Above Optimal LDL: 110- 129 mg/dLBorderline High LDL: 130-159 mg/dLHigh LDL: 160-189 mg/dLVery High LDL: greater than or equal to 190 mg/dL HDL Cholesterol 48 >40 mg/dL [facility] Comment:Desirable HDL: great er than 40 mg/dL Note: This HDL assay may give artificially low results in patients with liver disease. 08/25/2024 9:20 AM EST 08/25/2024 11:31 AM EST Sisi Hyatt MD LAB BLOOD ORDERABLES Final Result [facility] [address] [place] [phone] * (ABNORMAL) Hm Colonoscopy (01/14/2024) Colonoscopy Abnormal( A) Normal Comment:7 polypswith Rigoberto Holbrook MD Historical Provider HEALTH MAINTENANCE Final Result * Hepatitis C Antibody Reflex (04/19/2023 9:01 AM EDT) Hepatitis C Antibody Nonreactive Nonreactive [facility] Comment:Antibodies to HCV no t detected; does not exclude early acuteHCV infection. 04/19/2023 9:01 AM EDT 04/19/2023 11:20 AM EDT Sisi Hyatt MD LAB BLOOD ORDERABLES Final Result Performing Organization Address [facility] Co de Phone Number [facility] [address] [place] [phone] * HIV Ab/Ag (MICHAEL HUDDLESTON) (04/19/2023 9:01 AM EDT) HIV AB/AG Nonreactive Nonreactive [facility] Comment:HIV-1 p24 Ag and/or HIV-1/HIV-2 Ab not detected.A test result that is nonreactive does not exclude thepossibility of exposure to or infection with HIV-1 and/orHIV-2. Nonreactive results in this assay for individualswith prior exposure to HIV-1 and/or HIV-2 may be due toantigen and antibody levels that are below the limit ofdetection of this assay.The [employer] Director HIV Ag/Ab Combo assay result andsupplemental assay results should be interpreted inconjunction with the patient's clinical presentation,history and other laboratory results. If the results areinconsistent with clinical evidence, additional testing issuggested to confirm the result. 04/19/2023 9:01 AM EDT 04/19/2023 11:20 AM EDT Sisi Hyatt MD LAB BLOOD ORDERABLES Final Result Performing Organization Address [facility] Co de Phone Number [facility] [address] [place] [address] [phone] from Last 3 Months or Most Recently Relevant to Health Maintenance Insurance [employer] < 65 Advance Directives Documents on File Type Date Recorded Patient Station Worker Expl anation Advance Directives and Living Will 05/28/2024 1:00 PM Health Care Proxy Care Teams Dramatic Teacher Relationship Specialty Start Date End Date Edmar, MD Sisi [address] [place] [address] PCP - General Family Medicine 09/23/18 Cinda Johnson PharmD [address] [place] [address] Pharmacist Internal Medicine 06/08/24 Fabio Florian [address] [place] [address] Pulmonary Disease 08/12/24 Jose M King MD [address] [place] [address] Nephrology 09/02/24
--- OUTSIDE RECORDS SUMMARY | 2025-08-16 18:13 | XMS_ITS | Encounter Summary ---
Author Organization [employer] Address [address] [facility] 7t [place] [address] Care Team Providers Care Sack Cleaner Name Role Phone Sisi Hyatt MD Primary Care Provider [phone] Cinda Johnson PharmD Unavailable Fabio Florian Unavailable Jose M King MD Unavailable Encounter Details Date Type Department Care Team (Late st Contact Info) Description 04/22/2023 Orders Only [facility] [address] [place] [address] Sisi Hyatt MD [address] [place], [place] [phone] Social History Tobacco Use Types Packs/Day Years [...] documented as of this encounter Care Teams Sack Cleaner Relationship Specialty Start Date End Date Sisi Hyatt MD [address] [place] [address] PCP - General Family Medicine 09/23/18 Cinda Johnson, JoelD [address] [place] [address] Pharmacist Internal Medicine 06/08/24 Fabio Florian [address] [place] [address] Pulmonary Disease 08/12/24 Jose M King MD [address] [place] [address] Nephrology 09/02/24 documented as of this encounter
== END 2025-08-16 13:30 | disposition home or self-care (01) ==
LOC: HO.LAB 13:29
PROVIDERS: PCP Family Medicine; Visit Provider Internal Medicine Nephrology
DX: I12.9 Hypertensive chronic kidney disease with stage 1 through stage 4 chronic kidney disease, or unspecified chronic kidney disease (principal); N18.31 Chronic kidney disease, stage 3a
CPT/HCPCS: 36415; 80051; 82310; 82565; 82570; 84156; 84520

== ENCOUNTER 2025-08-18 10:55 | Outpatient (AMB) | payer OTHER, SELFPAY ==
--- NOTE | 2025-08-18 10:58 | HO.NEPHOV ---
Vital Signs 08/18/25 11:11 Height 5 ft 5 in Weight 136 lb 2 oz BMI 22.6 BP 130/90 H Blood Pressure Location Lt brachial Position Sitting Pulse 81 Pulse Source Pulse Oximeter Pulse Oximetry (%) 97 Oxygen Delivery Method Room Air Intake Visit Reasons: Late Jul follow-up w/labs-LVM Animal Nurse Required: No Accompanied by: Self / Same As Patient Allergies No Known Allergies Allergy (Verified 08/18/25 11:10) HPI Comments Details: Sean was seen in follow up of his mild CKD, history proteinuria and hypertension. He is known to have biopsy-proven FSGS causing CKD. His renal functions have been stable. He has been on lisinopril which he takes regularly. He avoids nonsteroidal anti-inflammatories and maintain good hydration. His blood pressure has been at goal. He is not a diabetic. He has no pedal edema. He denies any froth or foam in the urine. He has been on Cozaar at point which he discontinued due to concern for erectile dysfunction. His microalbumin creatinine ratio in 2013 was 774 and in 2014 was 547 which had improved to 356 in 2018. He denies any active drug use but smokes marijuana. He denies any history of coronary artery disease, congestive heart failure, carotid stenosis, peripheral arterial disease, renal artery stenosis or having any autoimmune diseases. 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 Review of Systems Const All systems reviewed & are unremarkable except as noted in HPI and below Physical Exam Vital Signs: Last Vital Signs Pulse 81 08/18/25 11:11 BP 130/90 H 08/18/25 11:11 Pulse Ox 97 08/18/25 11:11 Oxygen Delivery Method Room Air 08/18/25 11:11 BMI result Body Mass Index 22.6 Const General: comfortable and no acute distress Orientation/consciousness: patient oriented x3 HEENT Head: Yes normocephalic Mouth: Normal oral and palatal mucosa present Eyes EOM: EOMs intact bilaterally Neck Neck: Yes supple Resp Auscultation: clear to auscultation bilaterally Cardio Jugular venous distension: no JVD Rate: regular rate GI Palpation (GI): Soft to palpation Auscultation: normal bowel sounds General: Yes no CVA tenderness Back/Spine/Pelvis Back: no CVA tenderness Skin General skin exam: no rashes or lesions noted Neuro General: patient oriented x3 and moves all extremities Extrem General: Yes no pedal edema Results Reviewed Nephrology Results: Sodium, (135-145) 143 mmol/L 08/16/25 Potassium, (3.3-5.1) 4.1 mmol/L 08/16/25 Chloride, (96-108) 107 mmol/L 08/16/25 Carbon Dioxide, (22-29) 28 mmol/L 08/16/25 BUN, (9-16) 8 mg/dL L 08/16/25 Creatinine, (0.5-1.4) 1.16 mg/dL 08/16/25 Calcium, (8.4-10.2) 9.3 mg/dL 08/16/25 Urine Creatinine 158.40 mg/dL 08/16/25 Protein/Creatinin Ratio, (<0.2) 0.80 H 08/16/25 Assessment & Plan Assessment & Plan (1) HTN (hypertension): Code(s): I10 - Essential (primary) hypertension Category: Medical Qualifiers: Hypertension type: primary hypertension Qualified Code(s): I10 - Essential (primary) hypertension (2) CKD stage 3a, GFR 45-59 ml/min: Code(s): N18.31 - Chronic kidney disease, stage 3a Category: Medical (3) FSGS (focal segmental glomerulosclerosis): Code(s): N05.1 - Unspecified nephritic syndrome with focal and segmental glomerular lesions Category: Medical (4) Proteinuria: Code(s): R80.9 - Proteinuria, unspecified Category: Medical Qualifiers: Proteinuria type: other Qualified Code(s): R80.8 - Other proteinuria Plan He has mild CKD, history proteinuria and hypertension. He is known to have biopsy-proven FSGS causing CKD. His renal functions have been stable. He has been taking lisinopril 20 mg daily which I increased to 30 mg today. He will be a candidate for SGLT2 i. . I plan to maximize the dose of it and add SGLT2i with time. He avoids nonsteroidal anti-inflammatories and maintain good hydration. His blood pressure has been at goal. He is not a diabetic. He has been on Cozaar at point which he discontinued due to concern for erectile dysfunction. His microalbumin creatinine ratio in 2013 was 774 and in 2014 was 547 which had improved to 356 in 2018. All these have been explained in detail. Answered all questions. Follow-up lab work ordered Orders: Orders Electrolytes 3 Months I10 - Essential (primary) hypertension, N18.31 - Chronic kidney disease, stage 3a Protein Creatinine Ratio, Ur 3 Months I10 - Essential (primary) hypertension, N18.31 - Chronic kidney disease, stage 3a Blood Urea Nitrogen 3 Months I10 - Essential (primary) hypertension, N18.31 - Chronic kidney disease, stage 3a Creatinine 3 Months I10 - Essential (primary) hypertension, N18.31 - Chronic kidney disease, stage 3a Medications: Changed From lisinopril 20 mg PO DAILY 90 tabs 3RF To lisinopril 30 mg PO DAILY 90 tabs 3RF Coding Level of Care Code Est Pt Level 4 (21374) Diagnoses Primary hypertension I10 Hypertension type: primary hypertension CKD stage 3a, GFR 45-59 ml/min N18.31 FSGS (focal segmental glomerulosclerosis) N05.1 Other proteinuria R80.8 Proteinuria type: other
[2025-08-18 11:11] VITALS: BP 130/90; PULSE 81; O2SAT 97; BMI 22.6
== END 2025-08-18 11:41 | disposition home or self-care (01) ==
LOC: HO.HKA 10:55
PROVIDERS: PCP Family Medicine; Visit Provider Internal Medicine Nephrology
DX: I10 Essential (primary) hypertension (principal); N18.31 Chronic kidney disease, stage 3a; N05.1 Unspecified nephritic syndrome with focal and segmental glomerular lesions; R80.8 Other proteinuria
CPT/HCPCS: 99214

== ENCOUNTER → 2025-08-18 10:55 | Outpatient (BNVA) | payer OTHER, SELFPAY | PROVIDERS: PCP Family Medicine; Visit Provider Internal Medicine Nephrology | DX: I12.9 Hypertensive chronic kidney disease with stage 1 through stage 4 chronic kidney disease, or unspecified chronic kidney disease (principal); N18.31 Chronic kidney disease, stage 3a; R80.8 Other proteinuria; Z87.891 Personal history of nicotine dependence; Z79.899 Other long term (current) drug therapy | CPT/HCPCS: 99212 ==